=== PATIENT | male | born 1950 | race Caucasian/White ===

== ENCOUNTER → 2018-11-23 | Outpatient (CLI) | payer MEDICARE ==
--- NOTE | 2018-11-23 13:29 | Diagnostic Imaging Report ---
EXAMINATION: CT lung cancer screening. HISTORY: 18-emyr-qpxl history of smoking. COMPARISON: None available. FINDINGS: There is a 3 mm peripheral left lower lobe nodule, likely an intrapulmonary lymph node. A yaniv-fissural nodule along the minor fissure measures approximately 2 mm. No suspicious nodules are seen. No edema or pneumonia. No pleural effusion or pneumothorax. There is a nodule in the left mainstem bronchus measuring approximately 4 mm. This does seem somewhat linear and is likely mucus; however, a polyp or neoplasm could appear similarly. The lungs are emphysematous. The heart size is normal. There has been coronary artery bypass grafting. No axillary, supraclavicular, or mediastinal lymphadenopathy. Limited views of the upper abdomen are normal. There are no suspicious osseous lesions. IMPRESSION: An endobronchial nodule in the left mainstem bronchus is likely mucus but a short-term followup is recommended. Lung-RADS assessment: 4a, a 3 month followup is recommended. Modifier: None. Dictated by: Dictated on workstation # [id number]
== END ==
LOC: RAD 11:04
PROVIDERS: ATTEND Nurse Practitioner Primary Care
DX: Z12.2 Encounter for screening for malignant neoplasm of respiratory organs (principal); R91.1 Solitary pulmonary nodule; Z87.891 Personal history of nicotine dependence

== ENCOUNTER → 2019-03-13 | Outpatient (CLI) | payer MEDICARE, OTHER ==
[2019-03-13 09:49] LABS: CREATININE SERUM 1.73 MG/DL (0.60-1.30)
--- NOTE | 2019-03-13 12:53 | Diagnostic Imaging Report ---
PROCEDURE: CT chest without contrast. TECHNIQUE: Multiple contiguous axial images were obtained through the chest without the use of intravenous contrast. Auto Exposure Controls were utilized during the CT exam to meet ALARA standards for radiation dose reduction. INDICATION: Follow-up nodules. COMPARISON: CT chest on 11/23/2018. FINDINGS: The heart size is within normal limits. No pericardial effusion is present. Post CABG changes are noted. There is calcified aortic and coronary atherosclerotic plaque without aneurysm. There is no mediastinal, hilar, or axillary lymphadenopathy. Stable millimetric pulmonary nodules are seen in the left lower lobe and along the minor fissure. No new suspicious pulmonary nodules are visualized. There are no focal areas of consolidation. The nodularity within the left mainstem bronchus has resolved, consistent with mucosal thickening. New nodularity is seen in the right mainstem bronchus consistent with mucus. No central endobronchial obstructing lesions are identified. There is no pleural effusion or pneumothorax. The osseous structures demonstrate no acute abnormalities. Limited views of the upper abdominal structures demonstrate no acute abnormalities. Both adrenal glands are unremarkable. IMPRESSION: 1. Resolution of the nodularity within the left mainstem bronchus, consistent with mucosal thickening. New nodular thickening is seen in the right mainstem bronchus, also consistent with mucus. No suspicious central endobronchial obstructing lesions. No further follow-up is recommended regarding these findings. 2. Stable millimetric pulmonary nodules in the left lower lobe and along the minor fissure. No new suspicious pulmonary nodules. Recommend 12-month low-dose chest CT for continued follow-up from the prior exam on 11/23/2018. Dictated by: Dictated on workstation # [id number]
== END ==
LOC: RAD FS 09:07
PROVIDERS: ATTEND Nurse Practitioner Primary Care
DX: N18.3 Chronic kidney disease, stage 3 (moderate) (principal); R91.8 Other nonspecific abnormal finding of lung field
CPT/HCPCS: 36415; 71250; 82565; 84520

== ENCOUNTER 2019-07-01 20:00 | Emergency (ER) | payer MEDICARE, OTHER ==
[~2019-07-01] VITALS: Ht 154 cm; Wt 67.7 kg
[2019-07-01 20:40] LABS: BACTERIA,URINE NEGATIVE /HPF; BILIRUBIN,URINE NEGATIVE (NEGATIVE); CLARITY,URINE CLEAR; COLOR,URINE YELLOW; GLUCOSE, URINE (UA) 1+ (NEGATIVE); KETONES,URINE NEGATIVE (NEGATIVE); LEUKOCYTE ESTERASE ,URINE NEGATIVE (NEGATIVE); NITRITE,URINE NEGATIVE (NEGATIVE); PROTEIN,URINE 2+ (NEGATIVE); RBC,URINE 0-2 /HPF
[2019-07-01 20:59] LABS: BASOPHILS % (AUTO) 0 % (0-10); EOSINOPHILS % (AUTO) 2 % (0-10); HEMATOCRIT 37 % (40-54); LYMPHOCYTES % (AUTO) 26 % (12-44); MEAN CORPUSCULAR HEMOGLOBIN 29 PG (25-34); MEAN CORPUSCULAR HGB CONC 33 G/DL (32-36); MEAN CORPUSCULAR VOLUME 88 FL (80-99); MONOCYTES # (AUTO) 1.3 X 10^3 (0.0-1.0); MONOCYTES % (AUTO) 8 % (0-12); NEUTROPHILS # (AUTO) 9.6 X 10^3 (1.8-7.8); NEUTROPHILS % (AUTO) 63 % (42-75); PLATELET COUNT 231 10^3/uL (130-400); RED CELL DISTRIBUTION WIDTH 13.2 % (10.0-14.5); WHITE BLOOD COUNT 15.2 10^3/uL (4.3-11.0)
--- NOTE | 2019-07-01 20:59 | Diagnostic Imaging Report ---
PROCEDURE: CT head without contrast. TECHNIQUE: Multiple contiguous axial images were obtained through the brain without the use of intravenous contrast. Auto Exposure Controls were utilized during the CT exam to meet ALARA standards for radiation dose reduction. INDICATION: Frequent falls and headache. COMPARISON: No prior examination is available for comparison. FINDINGS: Ventricles appear slightly dilated out of proportion to the sulci. There is no midline shift. There is a focal lacunar infarct in the right basal ganglia which appears to be subacute. There is no mass, hemorrhage or extra-axial fluid collection. Calvarium is intact. Sinuses and mastoid air cells are clear. IMPRESSION: 1. Focal area of decreased attenuation in the right basal ganglia suspect for subacute CVA. Recommend clinical correlation and, if warranted, follow up with MRI. 2. Ventricles appear dilated out of proportion to sulci. The possibility of normal pressure hydrocephalus cannot be excluded. Recommend clinical correlation and, if warranted, again this could be further evaluated with MRI. 3. No other acute intracranial abnormality. Dictated by: Dictated on workstation # [id number]
[2019-07-01 21:00] LABS: EOSINOPHILS # (AUTO) 0.3 10^3/uL (0.0-0.3)
[2019-07-01 21:09] LABS: PROTHROMBIN TIME PATIENT 13.4 SEC (12.2-14.7)
[2019-07-01 21:17] LABS: POTASSIUM 4.7 MMOL/L (3.6-5.0)
[2019-07-01 21:18] LABS: ALBUMIN 3.9 GM/DL (3.2-4.5); BILIRUBIN,TOTAL 0.2 MG/DL (0.1-1.0); CALCIUM 8.9 MG/DL (8.5-10.1); CREATININE SERUM 2.08 MG/DL (0.60-1.30); TOTAL PROTEIN 6.8 GM/DL (6.4-8.2)
[2019-07-01 21:19] LABS: ANISOCYTOSIS SLIGHT; BAND NEUTROPHILS 1 %; EOSINOPHILS % (MANUAL) 3 %; LYMPHOCYTES % (MANUAL) 18 %; MICROCYTOSIS MARKED; MONOCYTES % (MANUAL) 5 %; NEUTROPHILS % (MANUAL) 60 %; POIKILOCYTOSIS MODERATE; REACTIVE LYMPHOCYTES 13 %
[2019-07-01 21:20] LABS: HELMET/BITE CELLS SLIGHT
--- NOTE | 2019-07-01 22:06 | ED General ---
General Chief Complaint: Altered Mental Status Stated Complaint: CONFUSION Nursing Triage Note: states 2 weeks of intermittent confusion, has had previous fem pop with stent which is now occluded, supposed to see cardiology on wednesday for ct of groin to determine surgical course for pt. pt with 4 falls today, states he hit head 1 of the times on the floor. pt has had vertigo for the past 2 months. Nursing Sepsis Screen: No Definite Risk Source of Information: Patient, Spouse History of Present Illness Date Seen by Provider: Jul 01, 2019 Time Seen by Provider: 22:06 Initial Comments 69-year-old male presenting with intermittent confusion over the last 2 weeks. Today he has had increased vertigo and 4-5 episodes of falls. He states that the vertigo and dizziness happens just out of the blue when it is worse if he leans over but will happen whether he is moving his head or not. He denies any pain. He has no nausea or vomiting. He has been having difficulty swallowing and had choked a few times today. He is having occlusion to his bypass in the femoropop liteal stent and is supposed to have a scan and evaluation and treatment for that this upcoming week. With the increased confusion, dizziness, choking episodes and falls today the brought him in to be evaluated for possible stroke Allergies and Home Medications Allergies Coded Allergies: iodine (Verified Allergy, Unknown, 07/01/19) Patient Home Medication List Home Medication List Reviewed: Yes Review of Systems Review of Systems Constitutional: No chills, No diaphoresis; dizziness; No fever EENTM: no symptoms reported Respiratory: no symptoms reported Cardiovascular: no symptoms reported Gastrointestinal: no symptoms reported Genitourinary: no symptoms reported Musculoskeletal: muscle weakness (bilateral legs) Skin: no symptoms reported Psychiatric/Neurological: Denies Headache; Numbness (increased numbness to BLE beyond his diabetic neuropathy) Hematologic/Lymphatic: No Symptoms Reported Immunological/Allergic: no symptoms reported Past Hvzexpv-Qtxnyq-Idvtat Hx Past Med/Social Hx: Reviewed Nursing Past Med/Soc Hx Patient Social History Alcohol Use: Denies Use Recreational Drug Use: No Smoking Status: Former Smoker 2nd Hand Smoke Exposure: No Recent Foreign Travel: No Contact w/Someone Who Travel: No Recent Infectious Disease Expo: No Recent Hopitalizations: No Physical Abuse: No Sexual Abuse: No Mistreated: No Fear: No Seasonal Allergies Seasonal Allergies: No Past Medical History Surgeries: Yes Cardiac, CABG, Coronary Stent Respiratory: No Cardiac: Yes Coronary Artery Disease, Heart Attack, High Cholesterol, Hypertension Neurological: No Genitourinary: No Renal Failure Gastrointestinal: No Musculoskeletal: No Endocrine: Yes Diabetes, Insulin dep HEENT: No Cancer: No Psychosocial: No Integumentary: No Blood Disorders: No Physical Exam Vital Signs Vital Signs - First Documented 07/01/19 20:30 Temp 36.1 Pulse 99 Resp 20 B/P (MAP) 166/53 (90) Pulse Ox 96 O2 Delivery Room Air Capillary Refill : Less Than 3 Seconds Height, Weight, BMI Height: '" Weight: lbs. oz. kg; 28.00 BMI Method: General Appearance: No Apparent Distress, WD/WN HEENT: PERRL/EOMI, Pharynx Normal, Moist Mucous Membranes, Other (cerumen blocking left TM, right TM clear) Neck: Full Range of Motion, Normal Inspection, Non Tender, Supple, Carotid Bruit Respiratory: Chest Non Tender, No Accessory Muscle Use, No Respiratory Distress, Decreased Breath Sounds, Rhonci (bases) Cardiovascular: Regular Rate, Rhythm; No Normal Peripheral Pulses (decreased pulses to BLE, 2/4 pulses to radial pulse bilateral) Gastrointestinal: Normal Bowel Sounds, No Pulsatile Mass, Non Tender, Soft Extremity: Normal Range of Motion, No Calf Tenderness, No Pedal Edema, Slow Capillary Refill, Other (decreased sensation to BLE) Neurologic/Psychiatric: Alert; No Oriented x3 (oriented to self, place); Normal Mood/Affect, interventional physician II-XII Norm as Tested Skin: Normal Color, Warm/Dry Progress/Results/Core Measures Suspected Sepsis Recent Fever Within 48 Hours: No Infection Criteria Present: None New/Unexplained Altered Menta: No Sepsis Screen: No Definite Risk SIRS Temperature: Pulse: 99 Respiratory Rate: 20 Laboratory Tests 07/01/19 20:55: White Blood Count 15.2H Blood Pressure 166 /53 Mean: 90 Laboratory Tests 07/01/19 20:55: Creatinine 2.08H, INR Comment 1.0, Platelet Count 231, Total Bilirubin 0.2 Results/Orders Lab Results Laboratory Tests Test 07/01/19 20:28 07/01/19 20:55 Range/Units Urine Color YELLOW Urine Clarity CLEAR Urine pH 6.0 5-9 Urine Specific [place] 1.010 L 1.016-1.022 Urine Protein 2+ H NEGATIVE Urine Glucose (UA) 1+ H NEGATIVE Urine Ketones NEGATIVE NEGATIVE Urine Nitrite NEGATIVE NEGATIVE Urine Bilirubin NEGATIVE NEGATIVE Urine Urobilinogen 0.2 < = 1.0 MG/DL Urine Leukocyte Esterase NEGATIVE NEGATIVE Urine RBC (Auto) TRACE-I NEGATIVE Urine RBC 0-2 /HPF Urine WBC NONE /HPF Urine Crystals NONE /LPF Urine Bacteria NEGATIVE /HPF Urine Casts NONE /LPF Urine Mucus NEGATIVE /LPF Urine Culture Indicated NO White Blood Count 15.2 H 4.3-11.0 10^3/uL Red Blood Count 4.16 L 4.35-5.85 10^6/uL Hemoglobin 12.0 L 13.3-17.7 G/DL Hematocrit 37 L 40-54 % Mean Corpuscular Volume 88 80-99 FL Mean Corpuscular Hemoglobin 29 25-34 PG Mean Corpuscular Hemoglobin Concent 33 32-36 G/DL Red Cell Distribution Width 13.2 10.0-14.5 % Platelet Count 231 130-400 10^3/uL Mean Platelet Volume 10.0 7.4-10.4 FL Neutrophils (%) (Auto) 63 42-75 % Lymphocytes (%) (Auto) 26 12-44 % Monocytes (%) (Auto) 8 0-12 % Eosinophils (%) (Auto) 2 0-10 % Basophils (%) (Auto) 0 0-10 % Neutrophils # (Auto) 9.6 H 1.8-7.8 X 10^3 Lymphocytes # (Auto) 4.0 1.0-4.0 X 10^3 Monocytes # (Auto) 1.3 H 0.0-1.0 X 10^3 Eosinophils # (Auto) 0.3 0.0-0.3 10^3/uL Basophils # (Auto) 0.0 0.0-0.1 10^3/uL Neutrophils % (Manual) 60 % Lymphocytes % (Manual) 18 % Monocytes % (Manual) 5 % Eosinophils % (Manual) 3 % Band Neutrophils 1 % Reactive Lymphocytes 13 % Poikilocytosis MODERATE Anisocytosis SLIGHT Microcytosis MARKED Helmet Cells SLIGHT Prothrombin Time 13.4 12.2-14.7 SEC INR Comment 1.0 0.8-1.4 Activated Partial Thromboplast Time 25 24-35 SEC Sodium Level 140 135-145 MMOL/L Potassium Level 4.7 3.6-5.0 MMOL/L Chloride Level 100 98-107 MMOL/L Carbon Dioxide Level 27 21-32 MMOL/L Anion Gap 13 5-14 MMOL/L Blood Urea Nitrogen 30 H 7-18 MG/DL Creatinine 2.08 H 0.60-1.30 MG/DL Estimat Glomerular Filtration Rate 32 BUN/Creatinine Ratio 14 Glucose Level 80 70-105 MG/DL Calcium Level 8.9 8.5-10.1 MG/DL Corrected Calcium 9.0 8.5-10.1 MG/DL Total Bilirubin 0.2 0.1-1.0 MG/DL Aspartate Amino Transf (AST/SGOT) 15 5-34 U/L Alanine Aminotransferase (ALT/SGPT) 17 0-55 U/L Alkaline Phosphatase 155 H 40-136 U/L Total Protein 6.8 6.4-8.2 GM/DL Albumin 3.9 3.2-4.5 GM/DL My Orders Orders - JOE POWERS MD Ua Culture If Indicated (07/01/19 20:28) Ct Head Wo (07/01/19 20:34) Cbc With Automated Diff (07/01/19 20:39) Comprehensive Metabolic Panel (07/01/19 20:39) Protime With Inr (07/01/19 20:39) Partial Thromboplastin Time (07/01/19 20:39) Manual Differential (07/01/19 20:55) Vital Signs/I&O 07/01/19 20:30 Temp 36.1 Pulse 99 Resp 20 B/P (MAP) 166/53 (90) Pulse Ox 96 O2 Delivery Room Air Capillary Refill : Less Than 3 Seconds Blood Pressure Mean: 90 Progress Note #1: Progress Note Labs and CT scan of his head were performed to evaluate for possible stroke. Progress Note #2: Time: 22:01 Progress Note Reviewed results with patient and family. With him having some acute findings for stroke on his CT head this could be causing his increased symptoms today. Discussed transfer to a larger facility that would have neurology as well as MRI to further evaluate his brain as recommended by the radiology report. Patient and family requested [facility] since they had his specialists there and were scheduled to go there this next week. Progress Note #3: Time: 22:36 Progress Note Reviewed findings and results with Dr. Manoj Montalvo. He was the hospitalist construction tech for [place]. Will transfer patient for further evaluation and treatment Diagnostic Imaging Diagonstic Imaging: CT Plain Films/CT/US/NM/MRI: head Comments [facility], [place] NAME: JCARLOS CADE [facility] REC#: [id number] PT STATUS: REG ER : 1950 PHYSICIAN: JOE POWERS MD ADMIT DATE: 07/01/19/ER FS Signed Date of Exam:07/01/19 CT HEAD WO PROCEDURE: CT head without contrast. TECHNIQUE: Multiple contiguous axial images were obtained through the brain without the use of intravenous contrast. Auto Exposure Controls were utilized during the CT exam to meet ALARA standards for radiation dose reduction. INDICATION: Frequent falls and headache. COMPARISON: No prior examination is available for comparison. FINDINGS: Ventricles appear slightly dilated out of proportion to the sulci. There is no midline shift. There is a focal lacunar infarct in the right basal ganglia which appears to be subacute. There is no mass, hemorrhage or extra-axial fluid collection. Calvarium is intact. Sinuses and mastoid air cells are clear. IMPRESSION: 1. Focal area of decreased attenuation in the right basal ganglia suspect for subacute CVA. Recommend clinical correlation and, if warranted, follow up with MRI. 2. Ventricles appear dilated out of proportion to sulci. The possibility of normal pressure hydrocephalus cannot be excluded. Recommend clinical correlation and, if warranted, again this could be further evaluated with MRI. 3. No other acute intracranial abnormality. Dictated by: Dictated on workstation # [id number] Dict: 07/01/192052 Trans: 07/01/192104 [facility] [id number] Interpreted by: SHALOM DE LA TORRE MD Electronically signed by: SHALOM DE LA TORRE MD 07/01/192104 Departure Impression Primary Impression: Cerebrovascular accident (CVA) of right basal ganglia Additional Impression: Vertigo following cerebrovascular accident Disposition: SHT-TRM HOSP Condition: Stable Transfer Transfer Reason: Exceeds level of care (Neurology and MRI) Transfer Progress Notes D/w Dr. Manoj Montalvo, Hospitalist at [place] about pt for transfer for his stroke and increased vertigo symptoms. Transfer Facility: [facility] Method of Transfer: EMS Departure-Patient Inst. Referrals: LEO FLOR DO (PCP) Primary Care Physician NILESH DE LA TORRE APRN (Family) Primary Care Physician NIH Stroke Scale NIH Stroke Scale NIH : Select: Initial Level of Consciousness: 0=Alert Level of Consciousness-Questio: 1=Answers one question (missed the month) LOC Commands: 0=Performs both tasks Gaze: 0=Normal Visual Bright: 0=No visual loss Facial Movement (Facial Paresi: 0=Normal symmetrical mnt Motor Function-Arms Right: 0=No drift Motor Function-Arms Left: 0=No drift Motor Function-Legs Right: 0=No drift Motor Function-Legs Left: 0=No drift Limb Ataxia: 1=Present in one limb Sensory: 1=Mild to Moderate loss Best Language: 0=No aphasia Dysarthria: 0=Normal Extinction & Inattention: 0=No abnormality NIH Stroke Scale Score: 3 JOE POWERS MD Jul 01, 2019 22:06
[2019-07-01] MEDS ORDERED: CITA20TA9 (22:55)
[2019-07-01] MEDS ORDERED: LISI10TA2 (22:55)
[2019-07-01] MEDS ORDERED: CLOP75TA28 (22:55)
[2019-07-01] MEDS ORDERED: AMIT50TA3 (22:55)
[2019-07-01] MEDS ORDERED: ATOR80TA76 (22:55)
--- NOTE | 2019-07-01 23:10 | NUR ---
ems here for transport
[2019-07-01 23:20] VITALS: BP 135/95
== END 2019-07-01 23:15 | disposition short-term general hospital (02) ==
LOC: EDUNIT# 20:00 → ER FS 20:02
DX: I63.9 Cerebral infarction, unspecified (principal); Z88.8 Allergy status to other drugs, medicaments and biological substances; Z87.891 Personal history of nicotine dependence; Z95.5 Presence of coronary angioplasty implant and graft
CPT/HCPCS: 36415; 70450; 80053; 81000; 85007; 85027; 85610; 85730

== ENCOUNTER 2019-07-15 10:03 | Day surgery (SDC) | payer MEDICARE, OTHER ==
[~2019-07-15] VITALS: Ht 168 cm; Wt 65.9 kg
[2019-07-15] VITALS (9 sets, daily range): BP systolic 93–145; BP diastolic 46–73
[~2019-07-15 10:03] MED LIST: AMIT50TA3; ATOR80TA76; CITA20TA9; CLOP75TA28; LISI10TA2
[2019-07-15] MEDS ORDERED: ONDANSETRON 4 MG/2 ML (SDV) Z0FRAN IVP ONE (10:30)
[2019-07-15] MEDS ORDERED: GLUCAGON EMERGENCY 1 MG/KIT IV ONE ×2 (10:30)
--- NOTE | 2019-07-15 10:30 | ED General ---
General Chief Complaint: Foreign Body Stated Complaint: FB IN THROAT Source of Information: Patient History of Present Illness Date Seen by Provider: Jul 15, 2019 Time Seen by Provider: 10:27 Initial Comments Patient is a 69-year-old male who comes to the emergency department complaining of foreign body in esophagus. Patient states he was eating burnt and and baked beans for dinner last night when he perceived that the piece of meat became lodged. He has been able to tolerate food since then and states he ate a banana for breakfast this morning but he continues to have the feeling that there is something caught in his throat. He has had no nausea or vomiting. He is able to take liquids as well. Denies acute distress. Allergies and Home Medications Allergies Coded Allergies: iodine (Verified Allergy, Unknown, 07/01/19) Patient Home Medication List Home Medication List Reviewed: Yes Review of Systems Review of Systems Constitutional: no symptoms reported Respiratory: no symptoms reported Cardiovascular: no symptoms reported Gastrointestinal: see HPI Musculoskeletal: no symptoms reported Skin: no symptoms reported All Other Systems Reviewed Negative Unless Noted: Yes Past Zjhqgfx-Qmyzbg-Jowyrk Hx Patient Social History Alcohol Use: Denies Use Recreational Drug Use: No Smoking Status: Never a Smoker 2nd Hand Smoke Exposure: No Recent Foreign Travel: No Contact w/Someone Who Travel: No Recent Hopitalizations: No Seasonal Allergies Seasonal Allergies: No Past Medical History Surgeries: Yes Cardiac, CABG, Coronary Stent Respiratory: No Cardiac: Yes Coronary Artery Disease, Heart Attack, High Cholesterol, Hypertension Neurological: No Genitourinary: No Renal Failure Gastrointestinal: No Musculoskeletal: No Endocrine: Yes Diabetes, Insulin dep HEENT: No Cancer: No Psychosocial: No Integumentary: No Blood Disorders: No Physical Exam Vital Signs Vital Signs - First Documented 07/15/19 10:23 Temp 36.5 Pulse 88 Resp 18 B/P (MAP) 186/97 (126) Pulse Ox 99 Capillary Refill : Height, Weight, BMI Height: '" Weight: lbs. oz. kg; 28.00 BMI Method: General Appearance: No Apparent Distress, WD/WN HEENT: PERRL/EOMI, Pharynx Normal Neck: Supple Respiratory: Chest Non Tender, Lungs Clear, Normal Breath Sounds Cardiovascular: Regular Rate, Rhythm, No Edema Gastrointestinal: Non Tender, Soft Extremity: Normal Capillary Refill Neurologic/Psychiatric: Alert, Oriented x3 Skin: Normal Color, Warm/Dry Progress/Results/Core Measures Suspected Sepsis SIRS Temperature: Pulse: Respiratory Rate: Laboratory Tests 07/15/19 10:35: White Blood Count 18.1H Blood Pressure / Mean: Laboratory Tests 07/15/19 00:00: 07/15/19 10:35: Platelet Count 341 Results/Orders Lab Results Laboratory Tests Test 07/15/19 00:00 07/15/19 10:35 Range/Units White Blood Count 18.1 H 4.3-11.0 10^3/uL Red Blood Count 4.38 4.35-5.85 10^6/uL Hemoglobin 12.7 L 13.3-17.7 G/DL Hematocrit 39 L 40-54 % Mean Corpuscular Volume 88 80-99 FL Mean Corpuscular Hemoglobin 29 25-34 PG Mean Corpuscular Hemoglobin Concent 33 32-36 G/DL Red Cell Distribution Width 12.9 10.0-14.5 % Platelet Count 341 130-400 10^3/uL Mean Platelet Volume 9.9 7.4-10.4 FL Neutrophils (%) (Auto) 70 42-75 % Lymphocytes (%) (Auto) 22 12-44 % Monocytes (%) (Auto) 6 0-12 % Eosinophils (%) (Auto) 1 0-10 % Basophils (%) (Auto) 0 0-10 % Neutrophils # (Auto) 12.7 H 1.8-7.8 X 10^3 Lymphocytes # (Auto) 4.0 1.0-4.0 X 10^3 Monocytes # (Auto) 1.1 H 0.0-1.0 X 10^3 Eosinophils # (Auto) 0.2 0.0-0.3 10^3/uL Basophils # (Auto) 0.0 0.0-0.1 10^3/uL Neutrophils % (Manual) 72 % Lymphocytes % (Manual) 24 % Monocytes % (Manual) 2 % Eosinophils % (Manual) 2 % Basophils % (Manual) 0 % Band Neutrophils 0 % Blood Morphology Comment NORMAL My Orders Orders - SALOMÓN OLIVAREZ DO Ed Iv/Invasive Line Start (07/15/19 10:17) Soft Tissue Neck (07/15/19 10:17) Chest 1 View Ap/Pa Only (07/15/19 10:17) Ondansetron Injection (Zofran Injectio (07/15/19 10:30) Glucagon Emergency Kit (Glucagon Emergen (07/15/19 10:30) Cbc With Automated Diff (07/15/19 10:30) Basic Metabolic Panel (07/15/19 10:30) Manual Differential (07/15/19 10:35) Ct Neck/Chest Wo (07/15/19 11:34) Barium Suspension 2.1% (Vanilla Silq) (07/15/19 11:45) Dexamethasone Injection (Decadron Inject (07/15/19 12:15) Medications Given in ED Current Medications Medications Dose Ordered Sig/Nacho Route Start Time Stop Time Status Last Admin Dose Admin Barium Sulfate 125 ml ONCE ONCE PO 07/15/19 11:45 07/15/19 11:46 DC 07/15/19 12:00 65 ML Dexamethasone Sodium Phosphate 8 mg ONCE ONCE IV 07/15/19 12:15 07/15/19 12:16 DC 07/15/19 12:33 8 MG Glucagon 2 mg ONCE ONCE IV 07/15/19 10:30 07/15/19 10:31 DC 07/15/19 10:50 2 MG Ondansetron HCl 4 mg ONCE ONCE IVP 07/15/19 10:30 07/15/19 10:31 DC 07/15/19 10:50 4 MG Vital Signs/I&O 07/15/19 10:23 Temp 36.5 Pulse 88 Resp 18 B/P (MAP) 186/97 (126) Pulse Ox 99 Capillary Refill : Progress Note : Time: 10:29 Progress Note Patient is seen and examined. No acute distress. Will place IV and give glucagon along with some Zofran. Will check plain film imaging to begin with. 12:45: ED Course: Patient seen for possible food bolus in the esophagus. Initial plain film imaging did not reveal acute findings. This was followed by CT scan which was questionable for possible bolus at the GE junction. In the ER, the patient received 2 mg of IV glucagon. He was given Decadron 8 mg IV. He was given Zofran for nausea control. Following administration of glucagon, patient received a large carbonated soda and was able to drink and tolerate but this did not alleviate his symptoms. Decision is made to discuss with surgery. I spoke to Dr. Naidu at 12:40 who did agree to evaluate the patient in the endoscopy lab in [place] at [facility]. Plan is for discharge from this emergency department and transfer to [place]. The patient is stable for private vehicle transfer. He has been observed in the ER for a couple hours with no difficulty. No respiratory distress. Is currently able to tolerate food and fluid. Patient is agreeable to this transfer plan of care. IV is left in place and patient is transferred via private vehicle. ECG Initial ECG Impression Date: Jul 15, 2019 Departure Impression Primary Impression: Foreign body in esophagus Disposition: XFER SHT-TRM HOSP Condition: Improved Transfer Transfer Reason: Exceeds level of care Time Spoke to Accepting Phy: 12:40 Transfer Time: 13:00 Transfer Facility: [facility] (for endoscopy only. Not admission to hospital) Method of Transfer: Private Vehicle Departure-Patient Inst. Referrals: [facility] (PCP/Family) Primary Care Physician Patient Instructions: Foreign Body, Swallowed, Child (DC) SALOMÓN OLIVAREZ DO Jul 15, 2019 10:30
--- NOTE | 2019-07-15 10:37 | Diagnostic Imaging Report ---
INDICATION: Food stuck in throat COMPARISON: Imaging from same date as well as from 03/13/2019. TECHNIQUE: Single frontal radiograph of the chest dated 07/15/2019. FINDINGS: Post surgical changes of a CABG. The cardiac silhouette is within normal limits in size. No significant pulmonary vascular congestion. The lungs are hyperinflated, though clear. No pleural effusion. No pneumothorax. Vascular stent is seen overlying the left neck. No acute osseous abnormality. IMPRESSION: No acute cardiopulmonary abnormality. Pulmonary hyperinflation. Additional postsurgical changes as above. Dictated by: Dictated on workstation # [id number]
--- NOTE | 2019-07-15 10:37 | Diagnostic Imaging Report ---
INDICATION: Food stuck in throat. COMPARISON: None available TECHNIQUE: Frontal and lateral radiographs of the soft tissues of the neck dated 07/15/2019. FINDINGS: Median sternotomy. Vascular stent graft seen overlying the left neck. The epiglottis and aryepiglottic folds are unremarkable. The airway appears patent. No suspicious radiopaque foreign body. Scattered degenerative changes within the osseous structures without acute osseous abnormality. The patient is edentulous. IMPRESSION: Postsurgical changes without acute abnormality. No suspicious radiopaque foreign body. Dictated by: Dictated on workstation # [id number]
[2019-07-15 10:45] LABS: BASOPHILS % (AUTO) 0 % (0-10); EOSINOPHILS # (AUTO) 0.2 10^3/uL (0.0-0.3); EOSINOPHILS % (AUTO) 1 % (0-10); HEMATOCRIT 39 % (40-54); HEMOGLOBIN 12.7 G/DL (13.3-17.7); LYMPHOCYTES % (AUTO) 22 % (12-44); MEAN CORPUSCULAR HEMOGLOBIN 29 PG (25-34); MEAN CORPUSCULAR HGB CONC 33 G/DL (32-36); MEAN CORPUSCULAR VOLUME 88 FL (80-99); MEAN PLATELET VOLUME 9.9 FL (7.4-10.4); MONOCYTES # (AUTO) 1.1 X 10^3 (0.0-1.0); MONOCYTES % (AUTO) 6 % (0-12); NEUTROPHILS # (AUTO) 12.7 X 10^3 (1.8-7.8); NEUTROPHILS % (AUTO) 70 % (42-75); PLATELET COUNT 341 10^3/uL (130-400); RED CELL DISTRIBUTION WIDTH 12.9 % (10.0-14.5); WHITE BLOOD COUNT 18.1 10^3/uL (4.3-11.0)
[2019-07-15 10:59] LABS: BAND NEUTROPHILS 0 %; BASOPHILS % (MANUAL) 0 %; EOSINOPHILS % (MANUAL) 2 %; LYMPHOCYTES % (MANUAL) 24 %; MONOCYTES % (MANUAL) 2 %; NEUTROPHILS % (MANUAL) 72 %; RBC MORPH NORMAL
[2019-07-15] MEDS ORDERED: BARIUM SUSPENSION 2.1% (VANILLA SILQ) 450 ML PO ONE (11:45)
[2019-07-15] MEDS ORDERED: DEXAMETHASONE 4 MG/ML SDV (DECADRON) IV ONE (12:15)
--- NOTE | 2019-07-15 12:21 | Diagnostic Imaging Report ---
INDICATION: Sensation of food stuck in throat after eating dinner the previous evening. TECHNIQUE: Multiple contiguous axial images were obtained through the neck and chest without the use of intravenous contrast. All CT scans use one or more of the following dose optimizing techniques: automated exposure control, MA and/or KvP adjustment based on patient size and exam type or iterative reconstruction. FINDINGS: The visualized globes and intraorbital structures are unremarkable. The visualized intracranial structures are unremarkable. Sinuses and mastoid air cells are clear. The parotid, submandibular and thyroid glands are grossly normal in appearance. The nasopharyngeal, oropharyngeal and hypopharyngeal tissues are symmetrical without mass effect. Prevertebral soft tissues are within normal limits. Epiglottis is unremarkable. There are degenerative changes in the cervical spine. There are some focal areas of nodularity along the left wall of the upper trachea as well as in the right mainstem bronchus. All this may reflect mucus. The possibility of underlying polyp or mucosal lesion cannot be excluded. The esophagus is completely air-filled to the GE junction. There is some soft tissue fullness just above the diaphragm suspect for retained food material. There are no discrete pulmonary nodules, masses or infiltrates. There is no pleural or pericardial fluid. There is no pneumothorax. There are coronary artery calcifications. There is no pathologically enlarged adenopathy in the chest. The visualized intra-abdominal structures are grossly unremarkable IMPRESSION: Unremarkable noncontrast CT neck. Completely air filled esophagus with some soft tissue fullness just above the GE junction suspect for retained food material. Recommend further evaluation with endoscopy. Several focal nodular areas in the right mainstem bronchus and trachea. Again this may simply reflect some mucous, however, tracheal or bronchial lesion cannot be excluded. Recommend further evaluation with bronchoscopy. Coronary artery calcification. No other acute abnormality in the chest. Findings were conveyed directly to the Emergency Room physician in [place] at 12:10 p.m. Dictated by: Dictated on workstation # [id number]
[2019-07-15] MEDS ORDERED: MIDAZOLAM 2 MG/2 ML (VERSED) VIAL ONE (13:41)
[2019-07-15] MEDS ORDERED: proPOfol 200 MG/20 ML (DIPRIVAN) VIAL IV ONE (13:41)
[2019-07-15] MEDS ORDERED: fentaNYL INJECTION 100 MCG/2 ML AMP ONE (13:41)
[2019-07-15] MEDS ORDERED: SUCCINYLCHOLINE INJ 100 MG/5 ML SYR ONE (13:41)
[2019-07-15] MEDS ORDERED: ONDANSETRON 4 MG/2 ML (SDV) Z0FRAN ONE (13:42)
[2019-07-15] MEDS ORDERED: LIDOCAINE PF 2% 5 ML (XYLOCAINE) VIAL ONE (13:42)
[2019-07-15] MEDS ORDERED: LACTATED RINGERS 1,000 ML IV ONE (13:42)
[2019-07-15] MEDS ORDERED: HURRICAINE EXT TUBE (BENZOCAINE) ONE (14:08)
[2019-07-15] MEDS ORDERED: ROCURONIUM 10 MG/ML 5 ML SYRINGE IV ONE (14:14)
--- NOTE | 2019-07-15 14:24 | Consultation - Surgery ---
History of Present Illness History of Present Illness Patient Consulted On(zuly/time) 07/15/19 14:19 Time Seen by Provider: 14:09 History of Present Illness Surgery asked to see pt regarding dysphagia and possible food bolus. HPI per ED: Patient is a 69-year-old male who comes to the emergency department complaining of foreign body in esophagus. Patient states he was eating burnt and and baked beans for dinner last night when he perceived that the piece of meat became lodged. He has been able to tolerate food since then and states he ate a banana for breakfast this morning but he continues to have the feeling that there is something caught in his throat. He has had no nausea or vomiting. He is able to take liquids as well. Denies acute distress. When I spoke to pt he states he has never had this problem before and has never had an EGD. Pt does report that 2-3 x week he has symptoms of GERD; burning acidy feeling. Pt denies nausea or vomiting, but did try to make himself vomit this morning "to try and get it out". He was able to drink some in the ER, but hasn't been able to get rid of the feeling. Allergies and Home Medications Allergies Coded Allergies: iodine (Verified Allergy, Unknown, 07/01/19) Patient Home Medication List Home Medication List Reviewed: Yes Past Ztiiysq-Ujqxjm-Lfvmwk Hx Patient Social History Alcohol Use: Denies Use Recreational Drug Use: No Smoking Status: Never a Smoker 2nd Hand Smoke Exposure: No Recent Foreign Travel: No Contact w/Someone Who Travel: No Recent Infectious Disease Expo: No Recent Hopitalizations: No Seasonal Allergies Seasonal Allergies: No Surgeries History of Surgeries: Yes Surgeries: Cardiac, CABG, Coronary Stent Respiratory History of Respiratory Disorde: No Cardiovascular History of Cardiac Disorders: Yes Cardiac Disorders: Coronary Artery Disease, Heart Attack, High Cholesterol, Hypertension Neurological History of Neurological Disord: No Genitourinary History of Genitourinary Disor: No Genitourinary Disorders: Renal Failure Gastrointestinal History of Gastrointestinal Di: No Musculoskeletal History of Musculoskeletal Dis: No Endocrine History of Endocrine Disorders: Yes Endocrine Disorders: Diabetes, Insulin dep HEENT History of HEENT Disorders: No Cancer History of Cancer: No Psychosocial History of Psychiatric Problem: No Integumentary History of Skin or Integumenta: No Blood Transfusions History of Blood Disorders: No Family Medical History Significant Family History: Cancer (pancreatic), CAD Over 55 Years Old, Diabetes, Hypertension Review of Systems-General Constitutional: No chills, No diaphoresis; weakness EENTM: throat pain; No blurred vision, No double vision, No mouth pain, No mouth swelling, No epistaxis Respiratory: dyspnea on exertion; No hemoptysis, No phlegm Cardiovascular: No chest pain; Hx of Intervention, vascular heart diseas Gastrointestinal: abdominal pain; No jaundice, No nausea, No vomiting Genitourinary: No dysuria, No frequency, No hematuria Musculoskeletal: back pain, joint pain, joint swelling, muscle pain, muscle stiffness Skin: No change in color, No change in hair/nails, No rash Psychiatric/Neurological: Denies Anxiety, Denies Depressed; Weakness (mild left sided weakness), Other (TIA last month) Other pt states he bleeds and bruises easily because he is on a blood thinner. 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 Physical Exam-General Problems Physical Exam Vital Signs Vital Signs - First Documented 07/15/19 10:23 Temp 36.5 Pulse 88 Resp 18 B/P (MAP) 186/97 (126) Pulse Ox 99 Capillary Refill : Less Than 3 Seconds General Appearance: WD/WN, mild distress Eyes: Bilateral Eye PERRL, Bilateral Eye EOMI HEENT: pharynx normal, other (moist mucous membranes) Neck: supple, normal inspection Respiratory: chest non-tender, lungs clear, normal breath sounds, no respiratory distress, no accessory muscle use Cardiovascular: regular rate, rhythm, no murmur Gastrointestinal: normal bowel sounds, non tender, soft, no organomegaly, other (large midline ventral incision with hernia) Back: no CVA tenderness, no vertebral tenderness Extremities: no pedal edema, no calf tenderness, normal capillary refill Neurologic/Psychiatric: doctor of radiology II-XII nml as tested, alert, normal mood/affect, o riented x 3 Skin: normal color, warm/dry Lymphatic: no adenopathy (neck, axilla or groin) Data Review Labs Laboratory Tests 07/15/19 00:00: 07/15/19 10:35: White Blood Count 18.1H, Red Blood Count 4.38, Hemoglobin 12.7L, Hematocrit 39L, Mean Corpuscular Volume 88, Mean Corpuscular Hemoglobin 29, Mean Corpuscular Hemoglobin Concent 33, Red Cell Distribution Width 12.9, Platelet Count 341, Mean Platelet Volume 9.9, Neutrophils (%) (Auto) 70, Lymphocytes (%) (Auto) 22, Monocytes (%) (Auto) 6, Eosinophils (%) (Auto) 1, Basophils (%) (Auto) 0, Neutrophils # (Auto) 12.7H, Lymphocytes # (Auto) 4.0, Monocytes # (Auto) 1.1H, Eosinophils # (Auto) 0.2, Basophils # (Auto) 0.0, Neutrophils % (Manual) 72, Lymphocytes % (Manual) 24, Monocytes % (Manual) 2, Eosinophils % (Manual) 2, Basophils % (Manual) 0, Band Neutrophils 0, Blood Morphology Comment NORMAL Radiology Date of Exam:07/15/19 CT NECK/CHEST WO INDICATION: Sensation of food stuck in throat after eating dinner the previous evening. TECHNIQUE: Multiple contiguous axial images were obtained through the neck and chest without the use of intravenous contrast. All CT scans use one or more of the following dose optimizing techniques: automated exposure control, MA and/or KvP adjustment based on patient size and exam type or iterative reconstruction. FINDINGS: The visualized globes and intraorbital structures are unremarkable. The visualized intracranial structures are unremarkable. Sinuses and mastoid air cells are clear. The parotid, submandibular and thyroid glands are grossly normal in appearance. The nasopharyngeal, oropharyngeal and hypopharyngeal tissues are symmetrical without mass effect. Prevertebral soft tissues are within normal limits. Epiglottis is unremarkable. There are degenerative changes in the cervical spine. There are some focal areas of nodularity along the left wall of the upper trachea as well as in the right mainstem bronchus. All this may reflect mucus. The possibility of underlying polyp or mucosal lesion cannot be excluded. The esophagus is completely air-filled to the GE junction. There is some soft tissue fullness just above the diaphragm suspect for retained food material. There are no discrete pulmonary nodules, masses or infiltrates. There is no pleural or pericardial fluid. There is no pneumothorax. There are coronary artery calcifications. There is no pathologically enlarged adenopathy in the chest. The visualized intra-abdominal structures are grossly unremarkable IMPRESSION: Unremarkable noncontrast CT neck. Completely air filled esophagus with some soft tissue fullness just above the GE junction suspect for retained food material. Recommend further evaluation with endoscopy. Several focal nodular areas in the right mainstem bronchus and trachea. Again this may simply reflect some mucous, however, tracheal or bronchial lesion cannot be excluded. Recommend further evaluation with bronchoscopy. Coronary artery calcification. No other acute abnormality in the chest. Findings were conveyed directly to the Emergency Room physician in [place] at 12:10 p.m. Dictated by: Dictated on workstation # [id number] Dict: 07/15/19 1205 Trans: 07/15/[address] [facility] [id number] Interpreted by: SHALOM DE LA OTRRE MD Electronically signed by: SHALOM DE LA TORRE MD 07/15/19 1256 Assessment/Plan Assessment/Plan Assessment/Plan Dysphagia Suspected Food Bolus CAD, DM, HTN, PAD Pt has a suspected food bolus; possibly confirmed by CT. The ER attempted to get food to pass with medications and by having pt drink some Coca-Cola, but none of it worked. I spoke to pt about an EGD to look in Esphagus, Stomach and small intestine; if we see any food will remove it. Pt will get some IV fluids and may need PPI or Carafate upon discharge. We discussed risks and complications; not limited to pain, bleeding and even esophageal peforation. He will be at increased risk of bleeding because he is on Plavix, but this cannot be avoided and all questions answered to his satisfaction. STAN VAZQUEZ DO Jul 15, 2019 14:24
[2019-07-15] MEDS ORDERED: SEVOFLURANE (ULTANE) 15 ML INHAL SOLN ONE (14:44)
[2019-07-15] MEDS ORDERED: PHENYLEPHRINE 100 MCG/ML 10 ML (ANESTHESIA) SYR ONE (14:48)
[2019-07-15] MEDS ORDERED: LACTATED RINGERS 1,000 ML IV STA (14:51)
--- NOTE | 2019-07-15 14:51 | Progress Note-Post Operative ---
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
[2019-07-15] MEDS ORDERED: SUCR1TAB36 PO (15:00)
[2019-07-15] MEDS ORDERED: PANT40TA2 PO (15:00)
--- NOTE | 2019-07-15 15:01 | Endoscopy Discharge Instruct ---
Endo Procedure/Findings Findings 1.: Gastritis 2.: Nieves's Esophagus 3.: Hiatal Hernia 4.: Other Findings (Esophageal Ulcer) Discharge Instructions - Activity: You might feel a little sleepy until tomorrow. This is due to the medicine you received to relax you. Until tomorrow, you should: NOT drive a car, operate machinery or power tools. NOT drink any alcoholic beverages. NOT make any important decisions or sign importortant papers. Do not return to work until tomorrow, unless otherwise instructed. Resume previous activities tomorrow. Diet: Start by taking liquids. If you tolerate liquids, advance to solid food. Call my office on Wednesday to make an appointment for ; [phone] 1.: EGD in 6-8 weeks Notify Physician - If you experience excessive bleeding, unusual abdominal pain, fever, or chest pain, contact your doctor immediately. STAN VAZQUEZ DO Jul 15, 2019 15:01
[2019-07-15] MEDS ORDERED: SUGAMMADEX 500 MG/5 ML VIAL (BRIDION) IV ONE (15:08)
--- NOTE | 2019-07-15 15:17 | Anesthesia-General Post-Op ---
General Patient Condition Mental Status/LOC: Same as Preop Cardiovascular: Satisfactory Nausea/Vomiting: Absent Respiratory: Satisfactory Pain: Controlled Complications: Absent Post Op Complications Complications None Follow Up Care/Instructions Patient Instructions None needed. Anesthesia/Patient Condition Patient Condition Patient is doing well, no complaints, stable vital signs, no apparent adverse anesthesia problems. No complications reported per nursing. CRUZ MCKEON CRNA Jul 15, 2019 15:17
--- NOTE | 2019-07-15 21:45 | OPERATIVE REPORT ---
DATE OF SERVICE: PREOPERATIVE DIAGNOSES: Dysphagia, suspected food bolus as well as coronary artery disease, diabetes mellitus and hypertension. POSTOPERATIVE DIAGNOSES: Gastritis, esophagitis, Nieves's esophagus, hiatal hernia. PROCEDURE: EGD. SURGEON: Seven Naidu DO ISOTOPE TECHNOLOGIST: None. ANESTHESIA: General endotracheal tube. SPECIMENS: None. BLOOD LOSS: None. FLUIDS: Per anesthesia. POSTOPERATIVE CONDITION: Stable. INDICATION FOR PROCEDURE: The patient is a 69-year-old male, who had burnt ends yesterday and felt like he had food stuck in his throat. CT done at [facility], radiologist read a possible food stuck in the distal esophagus. FINDINGS: The patient had some ulcers and some bad reflux, looked like he even Nieves's esophagus. He had a small hiatal hernia, some mild gastritis, but did not have a food bolus. PROCEDURE NOTE: After informed consent was obtained, the patient was brought to the endoscopy suite. He was placed in bed, intubated and then started this EGD, placed the scope down the mouth through the esophagus and towards the stomach. On the way down, noted some small food particles thought there may be a portion of food stuck, but able to visualize the GE junction, pushed into the stomach. There was no food in the stomach and none stuck at the GE junction, pushed down through and into the duodenum. Duodenum looked good. Pulled back. There is maybe some mild gastritis at the antrum. There was a retroflexed the scope, saw a small hiatal hernia, little bit of blood up in the upper cardia, I think this is pulled up into the GE junction and saw some pretty severe changes of acid creeping up of the Z line, looked like a Nieves's esophagus and just above this, there, looked like there was some esophageal ulcerations. I elected to not do any biopsies because the patient is on Plavix, pushed through back into the stomach and suctioned the air out of the stomach and then pulled the scope up the esophagus and on the way up to the very top noted a gastric implant, took a picture of this. Again, did not do a biopsy and then pulled the scope up and out the mouth. The patient tolerated the procedure and recovered in endoscopy suite. Job ID: [id number] DocumentID: [id number] Dictated Date: 07/15/2019 15:05:12 Placement Assistant Date: 07/15/2019 21:44:28 Dictated By: SEVEN NAIDU DO
--- OUTSIDE RECORDS SUMMARY | 2019-07-18 23:28 | XMS REPORT | Continuity of Care Document ---
Author Organization Unknown Address Unknown Phone Unavailable Allergies Active Description Code Type Severity Reaction Onset Reported/Identified Relationship to Patient Clinical Status Yes iodine [id number] Drug Allergy Unknown N/A 07/01/2019 Medications There is no data. Problems Date Dx Coded Attending Type Code Diagnosis Diagnosed By 11/18/2018 NILESH DE LA TORRE SHOVEL LOADER OPERATOR Ot Z87.891 PERSONAL HISTORY OF NICOTINE DEPENDENCE 11/23/2018 NILESH DE LA TORRE SHOVEL LOADER OPERATOR Ot Z87.891 PERSONAL HISTORY OF NICOTINE DEPENDENCE 11/25/2018 NILESH DE LA TORRE SHOVEL LOADER OPERATOR Ot R91.1 SOLITARY PULMONARY NODULE 11/25/2018 NILESH DE LA TORRE SHOVEL LOADER OPERATOR Ot Z12.2 ENCNTR SCREEN FOR MALIGNANT NEOPLASM OF 11/25/2018 NILESH DE LA TORRE SHOVEL LOADER OPERATOR Ot Z87.891 PERSONAL HISTORY OF NICOTINE DEPENDENCE 12/16/2018 NILESH DE LA TORRE SHOVEL LOADER OPERATOR Ot R91.1 SOLITARY PULMONARY NODULE 12/16/2018 NILESH DE LA TORRE SHOVEL LOADER OPERATOR Ot Z12.2 ENCNTR SCREEN FOR MALIGNANT NEOPLASM OF 12/16/2018 NILESH DE LA TORRE SHOVEL LOADER OPERATOR Ot Z87.891 PERSONAL HISTORY OF NICOTINE DEPENDENCE 03/16/2019 NILESH DE LA TORRE SHOVEL LOADER OPERATOR Ot N18.3 CHRONIC KIDNEY DISEASE, STAGE 3 (MODERAT 03/16/2019 NILESH DE LA TORRE SHOVEL LOADER OPERATOR Ot R91.8 OTHER NONSPECIFIC ABNORMAL FINDING OF FORTINO 03/19/2019 NILESH DE LA TORRE SHOVEL LOADER OPERATOR Ot N18.3 CHRONIC KIDNEY DISEASE, STAGE 3 (MODERAT 03/19/2019 NILESH DE LA TORRE SHOVEL LOADER OPERATOR Ot R91.8 OTHER NONSPECIFIC ABNORMAL FINDING OF FORTINO 04/04/2019 NILESH DE LA TORRE SHOVEL LOADER OPERATOR Ot N18.3 CHRONIC KIDNEY DISEASE, STAGE 3 (MODERAT 04/04/2019 NILESH DE LA TORRE SHOVEL LOADER OPERATOR Ot R91.8 OTHER NONSPECIFIC ABNORMAL FINDING OF FORTINO 07/05/2019 JOE POWERS MD, Ot I63.9 CEREBRAL INFARCTION, UNSPECIFIED 07/05/2019 JOE POWERS MD, Ot R41.0 DISORIENTATION, UNSPECIFIED 07/05/2019 JOE POWERS MD, Ot Z87.8 91 PERSONAL HISTORY OF NICOTINE DEPENDENCE 07/05/2019 JOE POWERS MD, Ot Z88.8 ALLERGY STATUS TO OTH DRUG/MEDS/BIOL SUB 07/05/2019 JOE POWERS MD, Ot Z95.5 PRESENCE OF CORONARY ANGIOPLASTY IMPLANT Procedures There is no data. Results Test Result Range CBC - 07/14/17 13:57 WHITE BLOOD CELL COUNT 13.7 Thousand/uL 3.8-10.8 RED BLOOD CELL COUNT 4.57 Million/uL 4.2 0-5.80 HEMOGLOBIN 13.2 g/dL 13.2-17.1 HEMATOCRIT 39.7 % 38.5-50.0 MCV 86.9 fL 80.0-100.0 MCH 28.9 pg 27.0-33.0 MCHC 33.2 g/dL 32.0-36.0 RDW 12.7 % 11.0-15.0 PLATELET COUNT 349 Thousand/uL 140-400 MPV 9.8 fL 7.5-12.5 ABSOLUTE NEUTROPHILS 9206 cells/uL 1500- 7800 ABSOLUTE LYMPHOCYTES 3398 cells/uL 850-3 900 ABSOLUTE MONOCYTES 986 cells/uL 200-950 ABSOLUTE EOSINOPHILS 96 cells/uL 15-500 ABSOLUTE BASOPHILS 14 cells/uL 0-200 NEUTROPHILS 67.2 % NRG LYMPHOCYTES 24.8 % NRG MONOCYTES 7.2 % NRG EOSINOPHILS 0.7 % NRG BASOPHILS 0.1 % NRG PDM - PAIN MGMT (PROFILE 3 WITH CONFIRMA TION) - 11/11/17 11:10 Prescribed Drug 1 Hydrocodone NRG Creatinine 39.3 mg/dL > or = 20.0 pH 5.50 4.5 - 9.0 Oxidant NEGATIVE mcg/mL <200 Amphetamines NEGATIVE ng/mL <500 medMATCH Amphetamines CONSISTENT NRG Benzodiazepines NEGATIVE ng/mL <100 medMATCH Benzodiazepines CONSISTENT NRG Marijuana Metabolite NEGATIVE ng/mL <20 medMATCH Marijuana Metab CONSISTENT NRG Cocaine Metabolite NEGATIVE ng/mL <150 medMATCH Cocaine Metab CONSISTENT NRG Opiates NEGATIVE ng/mL <100 medMATCH Opiates INCONSISTENT NRG Oxycodone NEGATIVE ng/mL <100 medMATCH Oxycodone CONSISTENT NRG COMMENT NRG C-PEPTIDE, SERUM - 11/24/17 08:31 C-PEPTIDE 2.28 ng/mL 0.80-3.85 [facility] - 03/03/18 09:53 GLUCOSE 131 mg/dL 65-99 UREA NITROGEN (BUN) 10 mg/dL 7-25 CREATININE 1.10 mg/dL 0.70-1.25 eGFR NON-AFR. AZERBAIJANI 69 mL/min/1.73m2 > OR = 60 eGFR 80 mL/min/1.73m2 > OR = 60 BUN/CREATININE RATIO NOT APPLICABLE (calc) 6-22 SODIUM 141 mmol/L 135-146 POTASSIUM 4.4 mmol/L 3.5-5.3 CHLORIDE 107 mmol/L 98-110 CARBON DIOXIDE 27 mmol/L 20-32 CALCIUM 9.1 mg/dL 8.6-10.3 PROTEIN, TOTAL 6.8 g/dL 6.1-8.1 ALBUMIN 4.1 g/dL 3.6-5.1 GLOBULIN 2.7 g/dL (calc) 1.9-3.7 ALBUMIN/GLOBULIN RATIO 1.5 (calc) 1.0-2. 5 BILIRUBIN, TOTAL 0.6 mg/dL 0.2-1.2 ALKALINE PHOSPHATASE 121 U/L 40-115 AST 15 U/L 10-35 ALT 15 U/L 9-46 MICROALBUMIN/CREATININE RATIO, URINE - 0 08/01/18 15:24 CREATININE, RANDOM URINE 53 mg/dL 20-32 0 MICROALBUMIN 7.4 mg/dL See Note: MICROALBUMIN/CREATININE RATIO, RANDOM URINE 140 mcg/mg creat <30 [facility] - 08/15/18 09:16 GLUCOSE 182 mg/dL 65-99 UREA NITROGEN (BUN) 19 mg/dL 7-25 CREATININE 1.30 mg/dL 0.70-1.25 eGFR NON-AFR. AZERBAIJANI 56 mL/min/1.73m2 > OR = 60 eGFR 65 mL/min/1.73m2 > OR = 60 BUN/CREATININE RATIO 15 (calc) 6-22 SODIUM 139 mmol/L 135-146 POTASSIUM 4.6 mmol/L 3.5-5.3 CHLORIDE 106 mmol/L 98-110 CARBON DIOXIDE 28 mmol/L 20-32 CALCIUM 9.0 mg/dL 8.6-10.3 PROTEIN, TOTAL 6.6 g/dL 6.1-8.1 ALBUMIN 3.9 g/dL 3.6-5.1 GLOBULIN 2.7 g/dL (calc) 1.9-3.7 ALBUMIN/GLOBULIN RATIO 1.4 (calc) 1.0-2. 5 BILIRUBIN, TOTAL 0.3 mg/dL 0.2-1.2 ALKALINE PHOSPHATASE 122 U/L 40-115 AST 14 U/L 10-35 ALT 19 U/L 9-46 CBC - 11/09/18 09:30 WHITE BLOOD CELL COUNT 12.9 Thousand/uL 3.8-10.8 RED BLOOD CELL COUNT 4.35 Million/uL 4.2 0-5.80 HEMOGLOBIN 12.7 g/dL 13.2-17.1 HEMATOCRIT 38.6 % 38.5-50.0 MCV 88.7 fL 80.0-100.0 MCH 29.2 pg 27.0-33.0 MCHC 32.9 g/dL 32.0-36.0 RDW 12.2 % 11.0-15.0 PLATELET COUNT 294 Thousand/uL 140-400 MPV 9.9 fL 7.5-12.5 ABSOLUTE NEUTROPHILS 8772 cells/uL 1500- 7800 ABSOLUTE LYMPHOCYTES 3070 cells/uL 850-3 900 ABSOLUTE MONOCYTES 839 cells/uL 200-950 ABSOLUTE EOSINOPHILS 206 cells/uL 15-500 ABSOLUTE BASOPHILS 13 cells/uL 0-200 NEUTROPHILS 68 % NRG LYMPHOCYTES 23.8 % NRG MONOCYTES 6.5 % NRG EOSINOPHILS 1.6 % NRG BASOPHILS 0.1 % NRG PSA - 11/09/18 09:30 PSA, TOTAL 0.8 ng/mL < OR = 4.0 PDM - PAIN MGMT (PROFILE 3 WITH CONFIRMA TION) - 11/09/18 09:30 Prescribed Drug 1 Hydrocodone NRG Creatinine 90.9 mg/dL > or = 20.0 pH 6.30 4.5 - 9.0 Oxidant NEGATIVE mcg/mL <200 Amphetamines NEGATIVE ng/mL <500 medMATCH Amphetamines CONSISTENT NRG Benzodiazepines NEGATIVE ng/mL <100 medMATCH Benzodiazepines CONSISTENT NRG Marijuana Metabolite NEGATIVE ng/mL <20 medMATCH Marijuana Metab CONSISTENT NRG Cocaine Metabolite NEGATIVE ng/mL <150 medMATCH Cocaine Metab CONSISTENT NRG Opiates POSITIVE ng/mL <100 Oxycodone NEGATIVE ng/mL <100 medMATCH Oxycodone CONSISTENT NRG COMMENT NRG Codeine NEGATIVE ng/mL <50 medMATCH Codeine CONSISTENT NRG Hydrocodone 263 ng/mL <50 medMATCH Hydrocodone CONSISTENT NRG Hydromorphone 54 ng/mL <50 medMATCH Hydromorphone CONSISTENT NRG Morphine NEGATIVE ng/mL <50 medMATCH Morphine CONSISTENT NRG Norhydrocodone 377 ng/mL <50 medMATCH Norhydrocodone CONSISTENT NRG Prescribed Drug 2 Hydrocodone NRG [id number] - 03/13/19 09:27 Serum or plasma urea nitrogen measurement (mass/volume ) 23 mg/dL 7-18 Serum or plasma creatinine measurement (mass/volume) 1.73 mg/dL 0.60-1.30 Serum or plasma urea nitrogen/creatinine mass ratio 13 NRG Serum or plasma creatinine measurement w ith calculation of estimated glomerular filtration rate 39 NRG CMP - 03/27/19 10:41 GLUCOSE 128 mg/dL 65-99 UREA NITROGEN (BUN) 21 mg/dL 7-25 CREATININE 1.56 mg/dL 0.70-1.18 eGFR NON-AFR. AZERBAIJANI 44 mL/min/1.73m2 > OR = 60 eGFR 51 mL/min/1.73m2 > OR = 60 BUN/CREATININE RATIO 13 (calc) 6-22 SODIUM 141 mmol/L 135-146 POTASSIUM 4.5 mmol/L 3.5-5.3 CHLORIDE 106 mmol/L 98-110 CARBON DIOXIDE 28 mmol/L 20-32 CALCIUM 9.3 mg/dL 8.6-10.3 PROTEIN, TOTAL 6.7 g/dL 6.1-8.1 ALBUMIN 3.9 g/dL 3.6-5.1 GLOBULIN 2.8 g/dL (calc) 1.9-3.7 ALBUMIN/GLOBULIN RATIO 1.4 (calc) 1.0-2. 5 BILIRUBIN, TOTAL 0.5 mg/dL 0.2-1.2 ALKALINE PHOSPHATASE 124 U/L 40-115 AST 13 U/L 10-35 ALT 15 U/L 9-46 Complete urinalysis with reflex to cultu re - 07/01/19 20:28 Urine color determination YELLOW NRG Urine clarity determination CLEAR NR G Urine pH measurement by test strip 6.0 5-9 Specific gravity of urine by test strip 1.010 1.016-1.022 Urine protein assay by test strip, semi-quantitative 2+ NEGATIVE Urine glucose detection by automated test strip 1+ NEGATIVE Erythrocytes detection in urine sediment by light micr oscopy TRACE-I NEGATIVE Urine ketones detection by automated test strip NE GATIVE NEGATIVE Urine nitrite detection by test strip NEGATIVE NEGATIVE Urine total bilirubin detection by test strip NEGA TIVE NEGATIVE Urine urobilinogen measurement by automated test strip (mass/volume) 0.2 mg/dL < = 1.0 Urine leukocyte esterase detection by dipstick NEG ATIVE NEGATIVE Automated urine sediment erythrocyte cou nt by microscopy (number/high power field) [HPF] NRG Automated urine sediment leukocyte count by microscopy (number/high power field) NONE NRG Bacteria detection in urine sediment by light microsco py NEGATIVE NRG Crystals detection in urine sediment by light microsco py NONE NRG Casts detection in urine sediment by light microscopy NONE NRG Mucus detection in urine sediment by light microscopy NEGATIVE NRG Complete urinalysis with reflex to culture NO NRG Complete blood count (CBC) with automate d white blood cell (WBC) differential - 07/01/19 20:55 Blood leukocytes automated count (number/volume) 15.2 10*3/uL 4.3-11.0 Blood erythrocytes automated count (number/volume) 4.16 10*6/uL 4.35-5.85 Venous blood hemoglobin measurement (mass/volume) 12.0 g/dL 13.3-17.7 Blood hematocrit (volume fraction) 37 % 40-54 Automated erythrocyte mean corpuscular volume 88 [ foz_us] 80-99 Automated erythrocyte mean corpuscular h emoglobin (mass per erythrocyte) 29 pg 25-34 Automated erythrocyte mean corpuscular h emoglobin concentration measurement (mass/volume) 33 g/dL 32-36 Automated erythrocyte distribution width ratio 13. 2 % 10.0- 14.5 Automated blood platelet count (count/volume) 231 10*3/uL 130-400 Automated blood platelet mean volume measurement 10.0 [foz_us] 7.4-10.4 Automated blood neutrophils/100 leukocytes 63 % 42-75 Automated blood lymphocytes/100 leukocytes 26 % 12-44 Blood monocytes/100 leukocytes 8 % 0-12 Automated blood eosinophils/100 leukocytes 2 % 0-10 Automated blood basophils/100 leukocytes 0 % 0-10 Blood neutrophils automated count (number/volume) 9.6 10*3 1.8-7.8 Blood lymphocytes automated count (number/volume) 4.0 10*3 1.0-4.0 Blood monocytes automated count (number/volume) 1. 3 10*3 0.0-1.0 Automated eosinophil count 0.3 10*3/uL 0 .0-0.3 Automated blood basophil count (count/volume) 0.0 10*3/uL 0.0-0.1 PT panel in platelet poor plasma by coag ulation assay - 07/01/19 20:55 Prothrombin time (PT) in platelet poor plasma by coagu lation assay 13.4 s 12.2-14.7 INR in platelet poor plasma or blood by coagulation as say 1.0 0.8-1.4 Activated partial thromboplastin time (a PTT) in platelet poor plasma bycoagulation assay - 07/01/19 20:55 Activated partial thromboplastin time (a PTT) in platelet poor plasma bycoagulation assay 25 s 24-35 Comprehensive metabolic panel - 07/01/19 20:55 Serum or plasma sodium measurement (moles/volume) 140 mmol/L 135-145 Serum or plasma potassium measurement (moles/volume) 4.7 mmol/L 3.6-5.0 Serum or plasma chloride measurement (moles/volume) 100 mmol/L 98-107 Carbon dioxide 27 mmol/L 21-32 Serum or plasma anion gap determination (moles/volume) 13 mmol/L 5-14 Serum or plasma urea nitrogen measurement (mass/volume ) 30 mg/dL 7-18 Serum or plasma creatinine measurement (mass/volume) 2.08 mg/dL 0.60-1.30 Serum or plasma urea nitrogen/creatinine mass ratio 14 NRG Serum or plasma creatinine measurement w ith calculation of estimated glomerular filtration rate 32 NRG Serum or plasma glucose measurement (mass/volume) 80 mg/dL 70-105 Serum or plasma calcium measurement (mass/volume) 8.9 mg/dL 8.5-10.1 Serum or plasma total bilirubin measurement (mass/volu me) 0.2 mg/dL 0.1-1.0 Serum or plasma alkaline phosphatase anastasia surement (enzymatic activity/volume) 155 U/L 40-136 Serum or plasma aspartate aminotransfera se measurement (enzymatic activity/volume) 15 U/L 5-34 Serum or plasma alanine aminotransferase measurement (enzymatic activity/volume) 17 U/L 0-55 Serum or plasma protein measurement (mass/volume) 6.8 g/dL 6.4-8.2 Serum or plasma albumin measurement (mass/volume) 3.9 g/dL 3.2-4.5 CALCIUM CORRECTED 9.0 mg/dL 8.5-10.1 Manual absolute plasma cell count - 06/11 06/29 20:55 Blood monocytes/100 leukocytes 5 % NRG Manual blood segmented neutrophils/100 leukocytes 60 % NRG Blood band neutrophils/100 leukocytes 1 % NRG Manual blood lymphocytes/100 leukocytes 18 % NRG Manual eosinophils/100 leukocytes in nose 3 % NRG Blood lymphocytes variant/100 leukocytes 13 % NRG Blood anisocytosis detection by light microscopy S LIGHT NRG Blood poikilocytosis detection by light microscopy MODERATE NRG Blood microcytes detection by light microscopy MAR KED NRG Blood helmet cells detection by light microscopy S LIGHT NRG Complete blood count (CBC) with automate d white blood cell (WBC) differential - 07/15/19 10:35 Blood leukocytes automated count (number/volume) 18.1 10*3/uL 4.3-11.0 Blood erythrocytes automated count (number/volume) 4.38 10*6/uL 4.35-5.85 Venous blood hemoglobin measurement (mass/volume) 12.7 g/dL 13.3-17.7 Blood hematocrit (volume fraction) 39 % 40-54 Automated erythrocyte mean corpuscular volume 88 [ foz_us] 80-99 Automated erythrocyte mean corpuscular h emoglobin (mass per erythrocyte) 29 pg 25-34 Automated erythrocyte mean corpuscular h emoglobin concentration measurement (mass/volume) 33 g/dL 32-36 Automated erythrocyte distribution width ratio 12. 9 % 10.0- 14.5 Automated blood platelet count (count/volume) 341 10*3/uL 130-400 Automated blood platelet mean volume measurement 9.9 [foz_us] 7.4-10.4 Automated blood neutrophils/100 leukocytes 70 % 42-75 Automated blood lymphocytes/100 leukocytes 22 % 12-44 Blood monocytes/100 leukocytes 6 % 0-12 Automated blood eosinophils/100 leukocytes 1 % 0-10 Automated blood basophils/100 leukocytes 0 % 0-10 Blood neutrophils automated count (number/volume) 12.7 10*3 1.8-7.8 Blood lymphocytes automated count (number/volume) 4.0 10*3 1.0-4.0 Blood monocytes automated count (number/volume) 1. 1 10*3 0.0-1.0 Automated eosinophil count 0.2 10*3/uL 0 .0-0.3 Automated blood basophil count (count/volume) 0.0 10*3/uL 0.0-0.1 Manual absolute plasma cell count - 11/26 10:35 Blood monocytes/100 leukocytes 2 % NRG Manual blood segmented neutrophils/100 leukocytes 72 % NRG Blood band neutrophils/100 leukocytes 0 % NRG Manual blood lymphocytes/100 leukocytes 24 % NRG Manual eosinophils/100 leukocytes in nose 2 % NRG Manual blood basophils/100 leukocytes 0 % NRG Blood erythrocyte morphology finding identification NORMAL NRG Capillary blood glucose measurement by g lucometer (mass/volume) - 07/15/19 14:23 Capillary blood glucose measurement by glucometer (mas s/volume) 116 mg/dL 70-110 Encounters ACCT No. Visit Date/Time Discharge Status Pt. Type Provider Facility Loc./Unit Complaint [id number] 07/15/2019 09:40:00 07/15/2019 23:59: 59 CLS Outpatient NILESH DE LA TORRE [facility] IN [facility] [id number] 2019 09:20:00 Document Registration [id number] 11/09/2018 08:40:00 Document Registration [id number] 08/15/2018 08:20:00 Document Registration [id number] 08/01/2018 09:00:00 Document Registration [id number] 03/03/2018 08:40:00 Document Registration [id number] 11/24/2017 09:00:00 Document Registration [id number] 11/11/2017 10:20:00 Document Registration [id number] 07/14/2017 10:20:00 Document Registration [id number] 07/15/2019 13:08:00 16:42:00 DIS Outpatient STAN VAZQUEZ DO [facility] ENDO FB IN THROAT [id number] 07/01/2019 20:02:00 020 23:15:00 DIS Outpatient JOE POWERS MD [facility] ER FS CONFUSION [id number] 03/13/2019 09:07:00 23:59:59 CLS Outpatient NILESH DE LA TORRE APRN [facility] RAD FS LUNG NODULE [id number] 11/23/2018 11:04:00 23:59:59 CLS Outpatient NILESH DE LA TORRE APRN [facility] RAD SCREENING
--- OUTSIDE RECORDS SUMMARY | 2019-07-19 01:15 | XMS REPORT | Continuity of Care Document ---
Author Organization Unknown Address Unknown Phone Unavailable Allergies Active Description Code Type Severity Reaction Onset Reported/Identified Relationship to Patient Clinical Status Yes iodine [id number] Drug Allergy Unknown N/A 07/01/2019 Medications There is no data. Problems Date Dx Coded Attending Type Code Diagnosis Diagnosed By 11/18/2018 NILESH DE LA TORRE MANAGER TECHNICAL TRAINING Ot Z87.891 PERSONAL HISTORY OF NICOTINE DEPENDENCE 11/23/2018 NILESH DE LA TORRE MANAGER TECHNICAL TRAINING Ot Z87.891 PERSONAL HISTORY OF NICOTINE DEPENDENCE 11/25/2018 NILESH DE LA TORRE MANAGER TECHNICAL TRAINING Ot R91.1 SOLITARY PULMONARY NODULE 11/25/2018 NILESH DE LA TORRE MANAGER TECHNICAL TRAINING Ot Z12.2 ENCNTR SCREEN FOR MALIGNANT NEOPLASM OF 11/25/2018 NILESH DE LA TORRE MANAGER TECHNICAL TRAINING Ot Z87.891 PERSONAL HISTORY OF NICOTINE DEPENDENCE 12/16/2018 NILESH DE LA TORRE MANAGER TECHNICAL TRAINING Ot R91.1 SOLITARY PULMONARY NODULE 12/16/2018 NILESH DE LA TORRE MANAGER TECHNICAL TRAINING Ot Z12.2 ENCNTR SCREEN FOR MALIGNANT NEOPLASM OF 12/16/2018 NILESH DE LA TORRE MANAGER TECHNICAL TRAINING Ot Z87.891 PERSONAL HISTORY OF NICOTINE DEPENDENCE 03/16/2019 NILESH DE LA TORRE MANAGER TECHNICAL TRAINING Ot N18.3 CHRONIC KIDNEY DISEASE, STAGE 3 (MODERAT 03/16/2019 NILESH DE LA TORRE MANAGER TECHNICAL TRAINING Ot R91.8 OTHER NONSPECIFIC ABNORMAL FINDING OF FORTINO 03/19/2019 NILESH DE LA TORRE MANAGER TECHNICAL TRAINING Ot N18.3 CHRONIC KIDNEY DISEASE, STAGE 3 (MODERAT 03/19/2019 NILESH DE LA TORRE MANAGER TECHNICAL TRAINING Ot R91.8 OTHER NONSPECIFIC ABNORMAL FINDING OF [place] 04/04/2019 NILESH DE LA TORRE MANAGER TECHNICAL TRAINING Ot N18.3 CHRONIC KIDNEY DISEASE, STAGE 3 (MODERAT 04/04/2019 NILESH DE LA TORRE MANAGER TECHNICAL TRAINING Ot R91.8 OTHER NONSPECIFIC ABNORMAL FINDING OF [...] - 11/24/17 08:31 C-PEPTIDE 2.28 ng/mL 0.80-3.85 [facility] - 03/03/18 09:53 GLUCOSE 131 mg/dL 65-99 UREA NITROGEN (BUN) 10 mg/dL 7-25 CREATININE 1.10 mg/dL 0.70-1.25 eGFR NON-AFR. [place] 69 mL/min/1.73m2 > OR = 60 eGFR [...] RATIO, RANDOM URINE 140 mcg/mg creat <30 [facility] - 08/15/18 09:16 GLUCOSE 182 mg/dL 65-99 UREA NITROGEN (BUN) 19 mg/dL 7-25 CREATININE 1.30 mg/dL 0.70-1.25 eGFR NON-AFR. [place] 56 mL/min/1.73m2 > OR = 60 eGFR [...] CONSISTENT NRG Prescribed Drug 2 Hydrocodone NRG [id number] - 03/13/19 09:27 Serum or plasma urea [...] 7-25 CREATININE 1.56 mg/dL 0.70-1.18 eGFR NON-AFR. [place] 44 mL/min/1.73m2 > OR = 60 eGFR [...] Status Pt. Type Provider Facility Loc./Unit Complaint [id number] 07/15/2019 09:40:00 07/15/2019 23:59: 59 CLS Outpatient NILESH DE LA TORRE [facility] [id number] 2019 09:20:00 Document Registration [id number] 11/09/2018 08:40:00 Document Registration [id number] 08/15/2018 08:20:00 Document Registration [id number] 08/01/2018 09:00:00 Document Registration [id number] 03/03/2018 08:40:00 Document Registration [id number] 11/24/2017 09:00:00 Document Registration [id number] 11/11/2017 10:20:00 Document Registration [id number] 07/14/2017 10:20:00 Document Registration [id number] 07/15/2019 13:08:00 16:42:00 DIS Outpatient STAN VAZQUEZ DO [facility] ENDO FB IN THROAT [id number] 07/01/2019 20:02:00 020 23:15:00 DIS Outpatient JOE POWERS MD [facility] ER FS CONFUSION [id number] 03/13/2019 09:07:00 23:59:59 CLS Outpatient NILESH DE LA TORRE APRN [facility] RAD FS LUNG NODULE [id number] 11/23/2018 11:04:00 23:59:59 CLS Outpatient NILESH DE LA TORRE APRN [facility] RAD SCREENING
== END 2019-07-15 16:42 | disposition home or self-care (01) ==
LOC: EDUNIT# 10:03 → ER FS 10:05 → ENDO 13:08
PROVIDERS: ATTEND Surgery
DX: K20.9 Esophagitis, unspecified (principal); K29.70 Gastritis, unspecified, without bleeding; K44.9 Diaphragmatic hernia without obstruction or gangrene; I25.10 Atherosclerotic heart disease of native coronary artery without angina pectoris; E11.9 Type 2 diabetes mellitus without complications; E78.00 Pure hypercholesterolemia, unspecified; I10 Essential (primary) hypertension; I25.2 Old myocardial infarction; Z79.02 Long term (current) use of antithrombotics/antiplatelets; Z95.1 Presence of aortocoronary bypass graft; Z79.4 Long term (current) use of insulin; Z88.8 Allergy status to other drugs, medicaments and biological substances
CPT/HCPCS: 36415; 70360; 70490; 71045; 71250; 82962; 85007; 85027

== ENCOUNTER 2019-10-05 09:06 | Outpatient (RCR) | payer MEDICARE, OTHER ==
[~2019-10-05] VITALS: Ht 167.7 cm; Wt 69.5 kg
[~2019-10-05 09:06] MED LIST changes: +AMIT100T2 PO; -ATOR80TA76; +ATOR80TA76 PO; -CITA20TA9; +CITA20TA9 PO; -CLOP75TA28; +CLOP75TA28 PO; +FLUT9.9S NSEACH; +HYDR-4342 PO; +INSU100I14 SQ; -LISI10TA2; +LISI10TA2 PO; +PANT40TA2 PO; +PANT40TA3 PO; +RT-ALBUINH IH; +SUCR1TAB36 PO
== END 2019-10-05 15:37 | disposition home or self-care (01) ==
LOC: PREOP 09:06
PROVIDERS: ATTEND Surgery
DX: Z01.818 Encounter for other preprocedural examination (principal); Z11.59 Encounter for screening for other viral diseases
CPT/HCPCS: 87635

== ENCOUNTER 2019-10-09 08:12 | Day surgery (SDC) | payer MEDICARE, OTHER ==
[~2019-10-09] VITALS: Ht 167.7 cm; Wt 69.5 kg
[2019-10-09] VITALS (8 sets, daily range): BP systolic 93–177; BP diastolic 48–80
[2019-10-09] MEDS ORDERED: LACTATED RINGERS 1,000 ML IV ONE (08:13)
--- OUTSIDE RECORDS SUMMARY | 2019-10-09 08:21 | XMS REPORT | Continuity of Care Document ---
Demographics Preferred Language Unknown Marital Status Unknown Advent Affiliation Unknown Race Unknown Ethnic Group Unknown Author Organization Unknown Address Unknown Phone Unavailable Allergies Active Description Code Type Severity Reaction Onset Reported/Identified Relationship to Patient Clinical Status Yes iodine [id number] Drug Allergy Unknown N/A 07/01/2019 Medications There is no data. Problems Date Dx Coded Attending Type Code Diagnosis Diagnosed By 04/08/1536 STAN VAZQUEZ DO Ot Z01.8 18 ENCOUNTER FOR OTHER PREPROCEDURAL EXAMIN 04/08/1536 STAN VAZQUEZ DO Ot Z11.5 9 ENCOUNTER FOR SCREENING FOR OTHER VIRAL 11/18/2018 NILESH DE LA TORRE APRN Ot Z87.891 PERSONAL HISTORY OF NICOTINE DEPENDENCE 11/23/2018 NILESH DE LA TORRE REFRIGERATION SERVICE TECHNICIAN Ot Z87.891 PERSONAL HISTORY OF NICOTINE DEPENDENCE 11/25/2018 NILESH DE LA TORRE REFRIGERATION SERVICE TECHNICIAN Ot R91.1 SOLITARY PULMONARY NODULE 11/25/2018 NILESH DE LA TORRE REFRIGERATION SERVICE TECHNICIAN Ot Z12.2 ENCNTR SCREEN FOR MALIGNANT NEOPLASM OF 11/25/2018 NILESH DE LA TORRE REFRIGERATION SERVICE TECHNICIAN Ot Z87.891 PERSONAL HISTORY OF NICOTINE DEPENDENCE 12/16/2018 NILESH DE LA TORRE REFRIGERATION SERVICE TECHNICIAN Ot R91.1 SOLITARY PULMONARY NODULE 12/16/2018 NILESH DE LA TORRE REFRIGERATION SERVICE TECHNICIAN Ot Z12.2 ENCNTR SCREEN FOR MALIGNANT NEOPLASM OF 12/16/2018 NILESH DE LA TORRE REFRIGERATION SERVICE TECHNICIAN Ot Z87.891 PERSONAL HISTORY OF NICOTINE DEPENDENCE 03/16/2019 NILESH DE LA TORRE REFRIGERATION SERVICE TECHNICIAN Ot N18.3 CHRONIC KIDNEY DISEASE, STAGE 3 (MODERAT 03/16/2019 NILESH DE LA TORRE APRN Ot R91.8 OTHER NONSPECIFIC ABNORMAL FINDING OF [place] 03/19/2019 NILESH DE LA TORRE REFRIGERATION SERVICE TECHNICIAN Ot N18.3 CHRONIC KIDNEY DISEASE, STAGE 3 (MODERAT 03/19/2019 NILESH DE LA TORRE REFRIGERATION SERVICE TECHNICIAN Ot R91.8 OTHER NONSPECIFIC ABNORMAL FINDING OF [place] 04/04/2019 NILESH DE LA TORRE REFRIGERATION SERVICE TECHNICIAN Ot N18.3 CHRONIC KIDNEY DISEASE, STAGE 3 (MODERAT 04/04/2019 NILESH DE LA TORRE REFRIGERATION SERVICE TECHNICIAN Ot R91.8 OTHER NONSPECIFIC ABNORMAL FINDING OF [place] 07/01/2019 PRIYA MEJIAS, JOE [place] Ot I63.9 CEREBRAL INFARCTION, UNSPECIFIED 07/01/2019 JOE POWERS MD Ot R41.0 DISORIENTATION, UNSPECIFIED 07/01/2019 JOE POWERS MD Ot Z87.8 91 PERSONAL HISTORY OF NICOTINE DEPENDENCE 07/01/2019 JOE POWERS MD Ot Z88.8 ALLERGY STATUS TO OT DRUG/MEDS/BIOL SUB 07/01/2019 PRIYA MEJIAS, JOE [place] Ot Z95.5 PRESENCE OF CORONARY ANGIOPLASTY IMPLANT 07/05/2019 JOE POWERS MD Ot I63.9 CEREBRAL INFARCTION, UNSPECIFIED 07/05/2019 JOE POWERS MD Ot R41.0 DISORIENTATION, UNSPECIFIED 07/05/2019 JOE POWERS MD Ot Z87.8 91 PERSONAL HISTORY OF NICOTINE DEPENDENCE 07/05/2019 JOE POWERS MD Ot Z88.8 ALLERGY STATUS TO OT DRUG/MEDS/BIOL SUB 07/05/2019 PRIYA MEJIAS, JOE [place] Ot Z95.5 PRESENCE OF CORONARY ANGIOPLASTY IMPLANT 07/15/2019 GEORGE MENDES STAN B Ot E11.9 TYPE 2 DIABETES MELLITUS WITHOUT COMPLIC 07/15/2019 GEORGE MENDES STAN B Ot E78.0 0 PURE HYPERCHOLESTEROLEMIA, UNSPECIFIED 07/15/2019 GEORGE MENDES STAN B Ot I10 ESSENTIAL (PRIMARY) HYPERTENSION 07/15/2019 GEORGE MENDES STAN B Ot I25.1 0 ATHSCL HEART DISEASE OF [place] CORONARY 07/15/2019 GEORGE MENDES STAN B Ot I25.2 OLD MYOCARDIAL INFARCTION 07/15/2019 GEORGE MENDES STAN B Ot K20.9 ESOPHAGITIS, UNSPECIFIED 07/15/2019 GEORGE MENDES STAN B Ot K29.7 0 GASTRITIS, UNSPECIFIED, WITHOUT BLEEDING 07/15/2019 GEORGE MENDES STAN B Ot K44.9 DIAPHRAGMATIC HERNIA WITHOUT OBSTRUCTION 07/15/2019 GEORGE MENDES STAN B Ot Z79.0 2 GROUP HOME (CURRENT) USE OF ANTITHROMBOTI 07/15/2019 BRANDEN VAZQUEZ DOIC B Ot Z79.4 GROUP HOME (CURRENT) USE OF INSULIN 07/15/2019 [facility], STAN B Ot Z88.8 ALLERGY STATUS TO OTH DRUG/MEDS/BIOL SUB 07/15/2019 [facility], STAN B Ot Z95.1 PRESENCE OF AORTOCORONARY BYPASS GRAFT 07/19/2019 [facility], STAN B Ot E11.9 TYPE 2 DIABETES MELLITUS WITHOUT COMPLIC 07/19/2019 [facility], STAN B Ot E78.0 0 PURE HYPERCHOLESTEROLEMIA, UNSPECIFIED 07/19/2019 [facility] DO, STAN B Ot I10 ESSENTIAL (PRIMARY) HYPERTENSION 07/19/2019 [facility], STAN B Ot I25.1 0 ATHSCL HEART DISEASE OF [place] CORONARY 07/19/2019 [facility], STAN B Ot I25.2 OLD MYOCARDIAL INFARCTION 07/19/2019 [facility], STAN B Ot K20.9 ESOPHAGITIS, UNSPECIFIED 07/19/2019 [facility], STAN B Ot K29.7 0 GASTRITIS, UNSPECIFIED, WITHOUT BLEEDING 07/19/2019 [facility], STAN B Ot K44.9 DIAPHRAGMATIC HERNIA WITHOUT OBSTRUCTION 07/19/2019 [facility], STAN B Ot Z79.0 2 GROUP HOME (CURRENT) USE OF ANTITHROMBOTI 07/19/2019 [facility], STAN B Ot Z79.4 GROUP HOME (CURRENT) USE OF INSULIN 07/19/2019 [facility], STAN B Ot Z88.8 ALLERGY STATUS TO OTH DRUG/MEDS/BIOL SUB 07/19/2019 [facility], STAN B Ot Z95.1 PRESENCE OF AORTOCORONARY BYPASS GRAFT 07/19/2019 [facility], STAN B Ot E11.9 TYPE 2 DIABETES MELLITUS WITHOUT COMPLIC 07/19/2019 [facility], STAN B Ot E78.0 0 PURE HYPERCHOLESTEROLEMIA, UNSPECIFIED 07/19/2019 [facility] DO, STAN B Ot I10 ESSENTIAL (PRIMARY) HYPERTENSION 07/19/2019 [facility], STAN B Ot I25.1 0 ATHSCL HEART DISEASE OF [place] CORONARY 07/19/2019 [place], STAN B Ot I25.2 OLD MYOCARDIAL INFARCTION 07/19/2019 [facility] DO, STAN B Ot K20.9 ESOPHAGITIS, UNSPECIFIED 07/19/2019 [facility] DO, STAN B Ot K29.7 0 GASTRITIS, UNSPECIFIED, WITHOUT BLEEDING 07/19/2019 [facility] DO, STAN B Ot K44.9 DIAPHRAGMATIC HERNIA WITHOUT OBSTRUCTION 07/19/2019 [facility], STAN B Ot Z79.0 2 GROUP HOME (CURRENT) USE OF ANTITHROMBOTI 07/19/2019 [facility] DO, STAN B Ot Z79.4 HORSEBACK EXCAVATOR (CURRENT) USE OF INSULIN 07/19/2019 [facility], STAN B Ot Z88.8 ALLERGY STATUS TO OTH DRUG/MEDS/BIOL SUB 07/19/2019 [facility] DO, STAN B Ot Z95.1 PRESENCE OF AORTOCORONARY BYPASS GRAFT 07/20/2019 [facility] DO, STAN B Ot E11.9 TYPE 2 DIABETES MELLITUS WITHOUT COMPLIC 07/20/2019 [facility], STAN B Ot E78.0 0 PURE HYPERCHOLESTEROLEMIA, UNSPECIFIED 07/20/2019 [facility] DO, STAN B Ot I10 ESSENTIAL (PRIMARY) HYPERTENSION 07/20/2019 [facility], STAN B Ot I25.1 0 ATHSCL HEART DISEASE OF [place] CORONARY 07/20/2019 [facility], STAN B Ot I25.2 OLD MYOCARDIAL INFARCTION 07/20/2019 [facility], STAN B Ot K20.9 ESOPHAGITIS, UNSPECIFIED 07/20/2019 [facility], STAN B Ot K29.7 0 GASTRITIS, UNSPECIFIED, WITHOUT BLEEDING 07/20/2019 [facility], STAN B Ot K44.9 DIAPHRAGMATIC HERNIA WITHOUT OBSTRUCTION 07/20/2019 [facility], STAN B Ot Z79.0 2 GROUP HOME (CURRENT) USE OF ANTITHROMBOTI 07/20/2019 [facility], STAN B Ot Z79.4 HORSEBACK EXCAVATOR (CURRENT) USE OF INSULIN 07/20/2019 [facility] DO, STAN B Ot Z88.8 ALLERGY STATUS TO OTH DRUG/MEDS/BIOL SUB 07/20/2019 [facility] DO, STAN B Ot Z95.1 PRESENCE OF AORTOCORONARY BYPASS GRAFT 07/21/2019 [facility] DO, STAN B Ot E11.9 TYPE 2 DIABETES MELLITUS WITHOUT COMPLIC 07/21/2019 [facility] DO, STAN B Ot E78.0 0 PURE HYPERCHOLESTEROLEMIA, UNSPECIFIED 07/21/2019 [facility] DO, STAN B Ot I10 ESSENTIAL (PRIMARY) HYPERTENSION 07/21/2019 [place] DO, STAN B Ot I25.1 0 ATHSCL HEART DISEASE OF [place] CORONARY 07/21/2019 STAN VAZQUEZ DO Ot I25.2 OLD MYOCARDIAL INFARCTION 07/21/2019 STAN VAZQUEZ DO Ot K20.9 ESOPHAGITIS, UNSPECIFIED 07/21/2019 STAN VAZQUEZ DO B Ot K29.7 0 GASTRITIS, UNSPECIFIED, WITHOUT BLEEDING 07/21/2019 STAN VAZQUEZ DO Ot K44.9 DIAPHRAGMATIC HERNIA WITHOUT OBSTRUCTION 07/21/2019 STAN VAZQUEZ DO Ot Z79.0 2 HORSEBACK EXCAVATOR (CURRENT) USE OF ANTITHROMBOTI 07/21/2019 STAN VAZQUEZ DO Ot Z79.4 HORSEBACK EXCAVATOR (CURRENT) USE OF INSULIN 07/21/2019 STAN VAZQUEZ DO Ot Z88.8 ALLERGY STATUS TO [facility] DRUG/MEDS/BIOL SUB 07/21/2019 STAN VAZQUEZ DO Ot Z95.1 PRESENCE OF AORTOCORONARY BYPASS GRAFT Procedures There is no data. Results Test Result Range CBC With Differential/Platelet - 6 16:42 WBC 14.3 x10E3/uL 3.4-10.8 RBC 4.66 x10E6/uL 4.14-5.80 Hemoglobin 13.5 g/dL 12.6-17.7 Hematocrit 40.0 % 37.5-51.0 MCV 86 fL 79-97 MCH 29.0 pg 26.6-33.0 MCHC 33.8 g/dL 31.5-35.7 RDW 13.4 % 12.3-15.4 Platelets 340 x10E3/uL 150-379 Neutrophils 61 % Lymphs 31 % Monocytes 7 % Eos 1 % Basos 0 % Neutrophils (Absolute) 8.8 x10E3/uL 1.4- 7.0 Lymphs (Absolute) 4.4 x10E3/uL 0.7-3.1 Monocytes(Absolute) 1.0 x10E3/uL 0.1-0.9 Eos (Absolute) 0.2 x10E3/uL 0.0-0.4 Baso (Absolute) 0.0 x10E3/uL 0.0-0.2 Immature Granulocytes 0 % Immature Grans (Abs) 0.0 x10E3/uL 0.0-0. 1 Comp. Metabolic Panel (14) - 04/30/16 16 :42 Glucose, Serum 146 mg/dL 65-99 BUN 14 mg/dL 8-27 Creatinine, Serum 1.18 mg/dL 0.76-1.27 eGFR If NonAfricn Am 63 mL/min/1.73 >59 eGFR If Africn Am 73 mL/min/1.73 >59 BUN/Creatinine Ratio 12 10-22 Sodium, Serum 141 mmol/L 134-144 Potassium, Serum 4.2 mmol/L 3.5-5.2 Chloride, Serum 102 mmol/L 96-106 Carbon Dioxide, Total 21 mmol/L 18-29 Calcium, Serum 9.5 mg/dL 8.6-10.2 Protein, Total, Serum 7.5 g/dL 6.0-8.5 Albumin, Serum 4.5 g/dL 3.6-4.8 Globulin, Total 3.0 g/dL 1.5-4.5 A/G Ratio 1.5 1.1-2.5 Bilirubin, Total 0.4 mg/dL 0.0-1.2 Alkaline Phosphatase, S 138 IU/L 39-117 AST (SGOT) 16 IU/L 0-40 ALT (SGPT) 16 IU/L 0-44 Lipid Panel - 04/30/16 16:42 Cholesterol, Total 139 mg/dL 100-199 Triglycerides 94 mg/dL 0-149 HDL Cholesterol 33 mg/dL >39 VLDL Cholesterol Ishmael 19 mg/dL 5-40 LDL Cholesterol Calc 87 mg/dL 0-99 TSH - 04/30/16 16:42 TSH 1.720 uIU/mL 0.450-4.500 Prostate-Specific Ag, Serum - 04/30/16 1 6:42 Prostate Specific Ag, Serum 1.0 ng/mL 0. 0-4.0 CBC With Differential/Platelet - 7 09:51 WBC 10.3 x10E3/uL 3.4-10.8 RBC 4.64 x10E6/uL 4.14-5.80 Hemoglobin 12.1 g/dL 12.6-17.7 Hematocrit 37.5 % 37.5-51.0 MCV 81 fL 79-97 MCH 26.1 pg 26.6-33.0 MCHC 32.3 g/dL 31.5-35.7 RDW 18.1 % 12.3-15.4 Platelets 293 x10E3/uL 150-379 Neutrophils 64 % Lymphs 27 % Monocytes 7 % Eos 2 % Basos 0 % Neutrophils (Absolute) 6.6 x10E3/uL 1.4- 7.0 Lymphs (Absolute) 2.7 x10E3/uL 0.7-3.1 Monocytes(Absolute) 0.7 x10E3/uL 0.1-0.9 Eos (Absolute) 0.2 x10E3/uL 0.0-0.4 Baso (Absolute) 0.0 x10E3/uL 0.0-0.2 Immature Granulocytes 0 % Immature Grans (Abs) 0.0 x10E3/uL 0.0-0. 1 Comp. Metabolic Panel (14) - 12/10/16 09 :51 Glucose, Serum 167 mg/dL 65-99 BUN 18 mg/dL 8-27 Creatinine, Serum 1.20 mg/dL 0.76-1.27 eGFR If NonAfricn Am 62 mL/min/1.73 >59 eGFR If Africn Am 72 mL/min/1.73 >59 BUN/Creatinine Ratio 15 10-24 Sodium, Serum 138 mmol/L 134-144 Potassium, Serum 4.3 mmol/L 3.5-5.2 Chloride, Serum 99 mmol/L 96-106 Carbon Dioxide, Total 23 mmol/L 18-29 Calcium, Serum 9.0 mg/dL 8.6-10.2 Protein, Total, Serum 6.9 g/dL 6.0-8.5 Albumin, Serum 3.8 g/dL 3.6-4.8 Globulin, Total 3.1 g/dL 1.5-4.5 A/G Ratio 1.2 1.2-2.2 Bilirubin, Total 0.3 mg/dL 0.0-1.2 Alkaline Phosphatase, S 131 IU/L 39-117 AST (SGOT) 12 IU/L 0-40 ALT (SGPT) 16 IU/L 0-44 CBC - 07/14/17 13:57 WHITE BLOOD CELL [...] - 11/24/17 08:31 C-PEPTIDE 2.28 ng/mL 0.80-3.85 CMP - 03/03/18 09:53 GLUCOSE 131 mg/dL 65-99 UREA NITROGEN (BUN) 10 mg/dL 7-25 CREATININE 1.10 mg/dL 0.70-1.25 eGFR NON-AFR. KENYAN 69 mL/min/1.73m2 > OR = 60 eGFR [...] RATIO, RANDOM URINE 140 mcg/mg creat <30 CMP - 08/15/18 09:16 GLUCOSE 182 mg/dL 65-99 UREA NITROGEN (BUN) 19 mg/dL 7-25 CREATININE 1.30 mg/dL 0.70-1.25 eGFR NON-AFR. KENYAN 56 mL/min/1.73m2 > OR = 60 eGFR [...] CONSISTENT NRG Prescribed Drug 2 Hydrocodone NRG [id number] - 03/13/19 09:27 Serum or plasma urea [...] 7-25 CREATININE 1.56 mg/dL 0.70-1.18 eGFR NON-AFR. KENYAN 44 mL/min/1.73m2 > OR = 60 eGFR [...] by glucometer (mas s/volume) 116 mg/dL 70-110 Coronavirus SARS-CoV-2 SO 2018 0 13:20 Coronavirus Ab [Units/volume] in Serum Negative Negative Encounters ACCT No. Visit Date/Time Discharge Status Pt. Type Provider Facility Loc./Unit Complaint [id number] 12/11/2016 07:06:00 Document Registration [id number] 05/01/2016 10:05:00 Document Registration [id number] 10/05/2019 09:06:00 15:37:00 DIS Outpatient STAN VAZQUEZ DO [facility] PREOP EGD [id number] 07/15/2019 13:08:00 16:42:00 DIS Outpatient STAN VAZQUEZ DO [facility] ENDO FB IN THROAT [id number] 07/01/2019 20:02:00 23:15:00 DIS Emergency JOE POWERS MD [facility] ER FS CONFUSION [id number] 03/13/2019 09:07:00 23:59:59 CLS Outpatient NILESH DE LA TORRE APRN [facility] RAD FS LUNG NODULE [id number] 11/23/2018 11:04:00 23:59:59 CLS Outpatient NILESH DE LA TORRE APRN [facility] RAD SCREENING [id number] 10/09/2019 09:40:00 P EN Preadmit STNA VAZQUEZ DO [facility] ENDO DYSPAGIA/STRICTURE [id number] 08/02/2019 13:45:00 08/02/2019 23:59: 59 CLS Outpatient NILESH DE LA [facility]ORRE [facility] [id number] 2019 09:20:00 Document Registration [id number] 11/09/2018 08:40:00 Document Registration [id number] 08/15/2018 08:20:00 Document Registration [id number] 08/01/2018 09:00:00 Document Registration [id number] 03/03/2018 08:40:00 Document Registration [id number] 11/24/2017 09:00:00 Document Registration [id number] 11/11/2017 10:20:00 Document Registration [id number] 07/14/2017 10:20:00 Document Registration
[2019-10-09] MEDS ORDERED: LACTATED RINGERS 1,000 ML IV STA (08:49)
--- NOTE | 2019-10-09 08:59 | Progress Note-Pre Operative ---
Pre-Operative Progress Note H&P Reviewed The H&P was reviewed, patient examined and no changes noted. Time Seen by Provider: 08:58 Date H&P Reviewed: Oct 09, 2019 Time H&P Reviewed: 08:58 Pre-Operative Diagnosis: Dysphagia, gastritis, hx of foreign body STAN VAZQUEZ DO Oct 09, 2019 08:59
[2019-10-09] MEDS ORDERED: HURRICAINE EXT TUBE (BENZOCAINE) XX PRN (09:00)
[2019-10-09] MEDS ORDERED: MIDAZOLAM 2 MG/2 ML (VERSED) VIAL ONE (09:14)
[2019-10-09] MEDS ORDERED: PROPOFOL INJECTION 50 ML IV ONE (09:14)
--- NOTE | 2019-10-09 09:43 | Progress Note-Post Operative ---
Post-Operative Progess Note Surgeon (s)/Taxi Driver (s) Surgeon STAN VAZQUEZ DO Taxi Driver: none Pre-Operative Diagnosis Dysphagia, gastritis, hx of foreign body Post-Operative Diagnosis Gastritis Hiatal Hernia Procedure & Operative Findings Date of Procedure 10/09/19 Procedure Performed/Findings EGD with bx Anesthesia Type IV sedation by GOLF COURSE RANGER Estimated Blood Loss Estimated blood loss (mL): scant Specimens/Packing Specimens Removed antral bx body of stomach bx GE jxn bx STAN VAZQUEZ DO Oct 09, 2019 09:43
--- NOTE | 2019-10-09 09:44 | Endoscopy Discharge Instruct ---
Endo Procedure/Findings Findings 1.: Gastritis 2.: Hiatal Hernia Discharge Instructions - Activity: You might feel a little sleepy until tomorrow. This is due to the medicine you received to relax you. Until tomorrow, you should: NOT drive a car, operate machinery or power tools. NOT drink any alcoholic beverages. NOT make any important decisions or sign importortant papers. Do not return to work until tomorrow, unless otherwise instructed. Resume previous activities tomorrow. Diet: Start by taking liquids. If you tolerate liquids, advance to solid food. make an appointment for one week 1.: EGD in 1 year Notify Physician - If you experience excessive bleeding, unusual abdominal pain, fever, or chest pain, contact your doctor immediately. STAN VAZQUEZ DO Oct 09, 2019 09:44
--- NOTE | 2019-10-09 12:19 | Anesthesia-General Post-Op ---
MAC Patient Condition Mental Status/LOC: Same as Preop Cardiovascular: Satisfactory Nausea/Vomiting: Absent Respiratory: Satisfactory Pain: Controlled Complications: Absent Post Op Complications Complications None Follow Up Care/Instructions Patient Instructions None needed. Anesthesiology Discharge Order Discharge Order Patient is doing well, no complaints, stable vital signs, no apparent adverse anesthesia problems. No complications reported per nursing. JELANI RODRIGUEZ CRNA Oct 09, 2019 12:19
--- NOTE | 2019-10-09 23:31 | OPERATIVE REPORT ---
DATE OF SERVICE: 10/09/2019 PREOPERATIVE DIAGNOSES: Dysphagia, gastritis, history of a foreign body being stuck. POSTOPERATIVE DIAGNOSES: Gastritis, hiatal hernia. PROCEDURE: EGD with biopsy. SURGEON: Seven Naidu DO PAPERBACK MACHINE OPERATOR: None. ANESTHESIA: IV sedation by the DIRECTOR MORTGAGE. SPECIMEN: Biopsy from the antrum, body of stomach and GE junction. BLOOD LOSS: Scant. FLUIDS: Per anesthesia. POSTOPERATIVE CONDITION: Stable. INDICATION FOR PROCEDURE: The patient is a 69-year-old male who has a history of dysphagia and had recently had a foreign object stuck, food bolus. He had some gastritis and needed a workup. FINDINGS: The patient had some gastritis and hiatal hernia, also appeared to have a little bit of a tortuous esophagus at the base. PROCEDURE NOTE: After informed consent was obtained, the patient was brought to the endoscopy suite, placed in bed in the left lateral decubitus position. He was administered IV sedation by the DIRECTOR MORTGAGE who monitored his vitals the entire time, heart rate, blood pressure and pulse ox and the scope was inserted down the mouth through the esophagus and into the stomach, pushed towards the antrum, took a picture of the antrum, pushing the duodenum. Duodenum looked fine. Pulled back and did a biopsy of the antrum. Retroflexed the scope, saw hiatal hernia, did a biopsy of the body of stomach, pulled the scope into the GE junction, did a biopsy here, pushed the scope back in and then suctioned the air out of the stomach and then pulled the scope up, noted to have a tortuous esophagus at the base. Had a count of the left and then right at the level of the zigzag to get into the stomach, pulled the scope up the esophagus and out the mouth. The patient was recovered in endoscopy suite. Job ID: [id number] DocumentID: [id number] Dictated Date: 10/09/2019 16:09:53 Gang Head Saw Operator Date: 10/09/2019 23:30:57 Dictated By: SEVEN NAIDU DO
== END 2019-10-09 10:30 | disposition home or self-care (01) ==
LOC: ENDO 08:12
PROVIDERS: ATTEND Surgery
DX: K29.70 Gastritis, unspecified, without bleeding (principal); K22.70 Barrett's esophagus without dysplasia; K20.9 Esophagitis, unspecified; K22.8 Other specified diseases of esophagus; K44.9 Diaphragmatic hernia without obstruction or gangrene; I25.10 Atherosclerotic heart disease of native coronary artery without angina pectoris; E11.9 Type 2 diabetes mellitus without complications; I51.9 Heart disease, unspecified; Z95.1 Presence of aortocoronary bypass graft; Z86.73 Personal history of transient ischemic attack (TIA), and cerebral infarction without residual deficits; Z88.8 Allergy status to other drugs, medicaments and biological substances; Z87.891 Personal history of nicotine dependence; Z79.899 Other long term (current) drug therapy; Z80.9 Family history of malignant neoplasm, unspecified
CPT/HCPCS: 82962; 88305

== ENCOUNTER → 2020-02-20 | Outpatient (CLI) | payer MEDICARE, OTHER ==
[~2020-02-20] MED LIST changes: +HYDR-3817 PO; -HYDR-4342 PO; -PANT40TA3 PO; +PANT40TA52 PO
[2020-02-20 11:54] LABS: CALCIUM 8.8 MG/DL (8.5-10.1); CREATININE SERUM 1.88 MG/DL (0.60-1.30); POTASSIUM 5.1 MMOL/L (3.6-5.0)
--- NOTE | 2020-02-20 12:23 | Diagnostic Imaging Report ---
PROCEDURE: US carotid duplex, bilateral. TECHNIQUE: Multiple real-time grayscale images were obtained over the carotid arteries in various projections, bilaterally. Additional spectral analysis and color Doppler duplex images were also obtained. INDICATION: Dizziness and vertigo. There is moderate plaque in the right common carotid and internal carotid artery. Velocities in the right internal carotid artery are elevated reaching 159 cm/s. There appears to be a stent extending from the left common carotid artery into the left internal carotid artery. Velocities are elevated in the left internal carotid artery reaching 210 cm/s. Both vertebral arteries show antegrade flow. IMPRESSION: Moderate right-sided carotid plaque. Velocity measurements in both internal carotid arteries are consistent with 50-69% diameter stenosis. Patient does have a left-sided carotid stent which appears to be patent. Parameters based on the consensus panel Leggett-[employer] and Doppler ultrasound criteria published March 2003, Radiology, Volume 229. DOPPLER (peak systolic velocity M/S Right Left CCA 1.13 0.90 ICA Proximal 1.55 1.90 ICA Mid 1.59 1.98 ICA Distal 1.12 2.10 RATIO 1.41 2.33 ECA 2.18 2.01 VERT 1.09 1.05 Dictated by: Dictated on workstation # [id number]
== END ==
LOC: RAD 12:15
PROVIDERS: ATTEND Internal Medicine Cardiovascular Disease
DX: I65.21 Occlusion and stenosis of right carotid artery (principal); Z98.62 Peripheral vascular angioplasty status
CPT/HCPCS: 36415; 80048; 93880

== ENCOUNTER 2020-05-13 05:52 | Outpatient (RCR) | payer MEDICARE, OTHER ==
[~2020-05-13] VITALS: Ht 167.6 cm; Wt 67.0 kg
[2020-05-13] MEDS ORDERED: PANT40TA52 PO (11:16)
[2020-05-13] MEDS ORDERED: ZOLP5TAB7 PO (11:16)
[2020-05-13] MEDS ORDERED: SUCR1TAB PO (11:19)
[2020-05-13] MEDS ORDERED: CLOP75TA28 PO (11:19)
[2020-05-13] MEDS ORDERED: GLUC1AUT2 SQ (11:19)
== END 2020-05-13 15:44 | disposition home or self-care (01) ==
LOC: PREOP 05:52
PROVIDERS: ATTEND Surgery
DX: Z01.818 Encounter for other preprocedural examination (principal)

== ENCOUNTER 2020-05-20 08:07 | Day surgery (SDC) | payer MEDICARE, OTHER ==
[~2020-05-20] VITALS: Ht 167.6 cm; Wt 67.0 kg
[~2020-05-20 08:07] MED LIST changes: +GLUC1AUT2 SQ; +SUCR1TAB PO; +ZOLP5TAB7 PO
[2020-05-20] MEDS ORDERED: LACTATED RINGERS 1,000 ML IV ONE (08:11)
[2020-05-20 08:12] VITALS: BP 158/61
[2020-05-20] MEDS ORDERED: proPOfol 200 MG/20 ML (DIPRIVAN) VIAL IV ONE (08:32)
[2020-05-20] MEDS ORDERED: MIDAZOLAM 2 MG/2 ML (VERSED) VIAL ONE (08:33)
--- NOTE | 2020-05-20 08:33 | Progress Note-Pre Operative ---
Pre-Operative Progress Note H&P Reviewed The H&P was reviewed, patient examined and no changes noted. Time Seen by Provider: 08:29 Date H&P Reviewed: May 20, 2020 Time H&P Reviewed: 08:30 Pre-Operative Diagnosis: Nieves's Esophagus STAN VAZQUEZ DO May 20, 2020 08:33
[2020-05-20 08:45] VITALS: BP 142/69
[2020-05-20] MEDS ORDERED: HURRICAINE EXT TUBE (BENZOCAINE) XX PRN (08:45)
[2020-05-20 08:50] VITALS: BP 108/52
--- NOTE | 2020-05-20 08:52 | Progress Note-Post Operative ---
Post-Operative Progess Note Surgeon (s)/Hat Measurer (s) Surgeon STAN VAZQUEZ DO Hat Measurer: none Pre-Operative Diagnosis Nieves's Esophagus Post-Operative Diagnosis Gastritis Esophagitis Procedure & Operative Findings Date of Procedure 05/20/20 Procedure Performed/Findings EGD with bx Anesthesia Type IV sedation by WINCH DERRICK OPERATOR Estimated Blood Loss Estimated blood loss (mL): scant Specimens/Packing Specimens Removed antral bx GE jxn x 3 STAN VAZQUEZ DO May 20, 2020 08:52
--- NOTE | 2020-05-20 08:53 | Endoscopy Discharge Instruct ---
Endo Procedure/Findings Findings 1.: Gastritis 2.: Nieves's Esophagus Discharge Instructions - Activity: You might feel a little sleepy until tomorrow. This is due to the medicine you received to relax you. Until tomorrow, you should: NOT drive a car, operate machinery or power tools. NOT drink any alcoholic beverages. NOT make any important decisions or sign importortant papers. Do not return to work until tomorrow, unless otherwise instructed. Resume previous activities tomorrow. Diet: Start by taking liquids. If you tolerate liquids, advance to solid food. 1.: EGD in 1 year Notify Physician - If you experience excessive bleeding, unusual abdominal pain, fever, or chest pain, contact your doctor immediately. STAN VAZQUEZ DO May 20, 2020 08:53
[2020-05-20 08:55] VITALS: BP 104/51
[2020-05-20] MEDS ORDERED: LACTATED RINGERS 1,000 ML IV SCH (09:00)
[2020-05-20 09:05] VITALS: BP 104/51
[2020-05-20 09:35] VITALS: BP 115/67
--- NOTE | 2020-05-20 13:01 | Anesthesia-General Post-Op ---
MAC Patient Condition Mental Status/LOC: Same as Preop Cardiovascular: Satisfactory Nausea/Vomiting: Absent Respiratory: Satisfactory Pain: Controlled Complications: Absent Post Op Complications Complications None Follow Up Care/Instructions Patient Instructions None needed. Anesthesiology Discharge Order Discharge Order Patient is doing well, no complaints, stable vital signs, no apparent adverse anesthesia problems. No complications reported per nursing. ZAK GARNICA CRNA May 20, 2020 13:00
--- NOTE | 2020-05-20 13:23 | OPERATIVE REPORT ---
DATE OF SERVICE: 05/20/2020 PREOPERATIVE DIAGNOSIS: Nieves's esophagus. POSTOPERATIVE DIAGNOSES: Gastritis and esophagitis. PROCEDURE PERFORMED: EGD with biopsy. SURGEON: Seven Naidu DO. LABORER GOLF COURSE: None. ANESTHESIA: IV sedation by the SAFE EXPERT. SPECIMEN: Biopsy of the antrum and three biopsies from the GE junction at the 2 o'clock, 6 o'clock, and 10 o'clock position. BLOOD LOSS: Scant. FLUIDS: Per anesthesia. POSTOPERATIVE CONDITION: Stable. INDICATION FOR PROCEDURE: The patient is a 70-year-old male with a history of Nieves's esophagus and needs an EGD to monitor the Nieves esophagus. FINDINGS: The patient had some mild gastritis, did look like he had some changes right at the GE junction. Biopsies were performed. PROCEDURE NOTE: After informed consent was obtained, the patient was brought to the endoscopy suite and placed in the bed in a left lateral decubitus position. He was administered IV sedation by the SAFE EXPERT, who then monitored his vitals the entire time, heart rate, blood pressure and pulse ox and the scope was inserted down the mouth through the esophagus into the stomach. Upon entering the stomach, I noted some mild gastritis, pushed into the duodenum. Duodenum looked fine. Pulled back, did a biopsy of the antrum. Retroflexed the scope, did not see a hiatal hernia, did not really see a lot of other gastritis, pushed into the esophagus and noted some changes here, took a picture and then did biopsies at the 2 o'clock, 6 o'clock, and 10 o'clock position, a little bit of bleeding. Scope was then reinserted into the stomach, suctioned all the air out and then pulled the scope up the esophagus and out the mouth. The patient tolerated the procedure and he was recovered in the endoscopy suite. Job ID: [id number] DocumentID: [id number] Dictated Date: 05/20/2020 08:59:46 [employer] Date: 05/20/2020 13:22:51 Dictated By: SEVEN NAIDU DO
== END 2020-05-20 09:35 | disposition home or self-care (01) ==
LOC: ENDO 08:07
PROVIDERS: ATTEND Surgery
DX: K29.50 Unspecified chronic gastritis without bleeding (principal); K22.70 Barrett's esophagus without dysplasia; K21.00 Gastro-esophageal reflux disease with esophagitis, without bleeding; I10 Essential (primary) hypertension; I25.119 Atherosclerotic heart disease of native coronary artery with unspecified angina pectoris; E11.9 Type 2 diabetes mellitus without complications; E78.5 Hyperlipidemia, unspecified; J44.9 Chronic obstructive pulmonary disease, unspecified; Z79.51 Long term (current) use of inhaled steroids; Z79.4 Long term (current) use of insulin; Z91.041 Radiographic dye allergy status; Z88.5 Allergy status to narcotic agent; Z86.73 Personal history of transient ischemic attack (TIA), and cerebral infarction without residual deficits; Z80.9 Family history of malignant neoplasm, unspecified
CPT/HCPCS: 82962; 88305

== ENCOUNTER → 2020-06-27 | Outpatient (CLI) | payer MEDICARE, OTHER ==
[~2020-06-27] MED LIST changes: -LISI10TA2 PO; +LISI10TA25 PO
--- NOTE | 2020-06-27 17:23 | Diagnostic Imaging Report ---
PROCEDURE: US bilateral lower extremity arterial. TECHNIQUE: Multiple real-time grayscale images are obtained through both lower extremity arterial systems with color Doppler imaging and color Doppler spectral analysis. DATE: June 24, 2020. INDICATION: 70-year-old male, peripheral vascular disease. No additional history provided. COMPARISON: None. FINDINGS: Peak systolic velocity in the right common femoral artery measures 151 cm/s with lack of normal triphasic waveform. The imaged portions of the right deep femoral artery are occluded. The cowl[place] right superficial femoral artery is occluded. There is blood flow demonstrated on the right popliteal artery with loss of normal triphasic waveforms. Right popliteal artery demonstrates a peak systolic velocity of 94 cm/s. There is a right femoral popliteal bypass graft with peak systolic velocity in its proximal aspect at 229 cm/s, 77 cm/s in its mid segment and 79 cm/s distally. Peak systolic velocity in the right distal posterior tibial artery measures 22 cm/s. Peak systolic velocity in the right dorsalis pedis artery measures 26 cm/s. The right anterior tibial artery is patent with peak systolic velocity of 103 cm/s. Peak systolic velocity in the left common femoral artery measures 162 cm/s with lack of normal triphasic waveform. The left deep femoral artery is patent in its imaged portions with peak systolic velocity of 222 cm/s. The left proximal superficial femoral artery demonstrates a peak systolic velocity of near 100 cm/s. There is occlusion of the mid segment of the left superficial femoral artery and distal aspect of the cowlitz left superficial femoral artery. Peak systolic velocity in the left popliteal artery measures 120 cm/s. There is a left femoral popliteal bypass graft with peak systolic velocity in its proximal aspect of 100 cm/s, 59 cm/s in its mid segment and 98 cm/s distally. Peak systolic velocity in the left distal posterior tibial artery measures 82 cm/s. Peak systolic velocity in the left dorsalis pedis artery measures 18 cm/s. Peak systolic velocity in the left distal anterior tibial artery is measured at 24 cm/s. IMPRESSION: 1. Patent bilateral femoral popliteal bypass grafts with somewhat elevated velocity in the proximal aspect of the right bypass graft at 229 cm/s. 2. Occlusion of the entire length of the cowlitz right superficial femoral artery and imaged portions of the right deep femoral artery. 3. Occluded portions of the mid and distal aspect of the left cowlitz superficial femoral artery. 4. The additional imaged lower extremity bilateral arterial vasculature is patent. Dictated by: Dictated on workstation # [id number]
== END ==
LOC: RAD 12:45
PROVIDERS: ATTEND Nurse Practitioner
DX: I73.9 Peripheral vascular disease, unspecified (principal); I63.9 Cerebral infarction, unspecified
CPT/HCPCS: 93925

== ENCOUNTER → 2020-08-19 | Outpatient (CLI) | payer MEDICARE, OTHER ==
--- NOTE | 2020-08-19 10:47 | Diagnostic Imaging Report ---
PROCEDURE: US Renal Bilateral. TECHNIQUE: Multiple real-time grayscale images were obtained over the kidneys in various projections bilaterally. INDICATION: Chronic kidney disease. Right kidney is small measuring 7.6 x 3.6 x 4.4 cm. Left kidney measures 9.8 x 5.1 x 5.3 cm. The cortical thickness and echogenicity appears normal. There is no hydronephrosis on either side. There are bilateral renal cysts. Largest cyst on the right is in the lower pole approximately 2.3 x 1.9 cm. Cyst in the lower pole of the left kidney measures 2.4 x 2.7 cm. Bladder demonstrates bilateral ureteral jets. IMPRESSION: 1. Small right kidney. There are bilateral renal cysts. No calculi or hydronephrosis is detected. Dictated by: Dictated on workstation # [id number]
== END ==
LOC: RAD FS 09:51
PROVIDERS: ATTEND Internal Medicine Nephrology
DX: I12.9 Hypertensive chronic kidney disease with stage 1 through stage 4 chronic kidney disease, or unspecified chronic kidney disease (principal); N18.32 Chronic kidney disease, stage 3b; I25.10 Atherosclerotic heart disease of native coronary artery without angina pectoris; I73.9 Peripheral vascular disease, unspecified; N28.1 Cyst of kidney, acquired; N27.0 Small kidney, unilateral
CPT/HCPCS: 76770

== ENCOUNTER → 2020-09-09 | Outpatient (CLI) | payer MEDICARE, OTHER ==
[2020-09-09 10:48] LABS: BASOPHILS % (AUTO) 0 % (0-10); EOSINOPHILS # (AUTO) 0.2 10^3/uL (0.0-0.3); EOSINOPHILS % (AUTO) 2 % (0-10); HEMATOCRIT 36 % (40-54); HEMOGLOBIN 11.8 G/DL (13.3-17.7); LYMPHOCYTES # (AUTO) 2.6 X 10^3 (1.0-4.0); LYMPHOCYTES % (AUTO) 22 % (12-44); MEAN CORPUSCULAR HEMOGLOBIN 29 PG (25-34); MEAN CORPUSCULAR HGB CONC 33 G/DL (32-36); MEAN CORPUSCULAR VOLUME 88 FL (80-99); MEAN PLATELET VOLUME 10.4 FL (7.4-10.4); MONOCYTES # (AUTO) 0.7 X 10^3 (0.0-1.0); MONOCYTES % (AUTO) 6 % (0-12); NEUTROPHILS # (AUTO) 8.4 X 10^3 (1.8-7.8); NEUTROPHILS % (AUTO) 70 % (42-75); PLATELET COUNT 231 10^3/uL (130-400)
[2020-09-09 11:12] LABS: POTASSIUM 4.5 MMOL/L (3.6-5.0)
[2020-09-09 11:13] LABS: ALBUMIN 3.8 GM/DL (3.2-4.5); CALCIUM 8.8 MG/DL (8.5-10.1); CREATININE SERUM 1.74 MG/DL (0.60-1.30)
[2020-09-09 15:37] LABS: PHOSPHORUS 2.9 MG/DL (2.3-4.7)
[2020-09-09 15:40] LABS: URIC ACID 6.5 MG/DL (2.6-7.2)
== END ==
LOC: LAB FS 09:43
PROVIDERS: ATTEND Internal Medicine Nephrology
DX: I12.9 Hypertensive chronic kidney disease with stage 1 through stage 4 chronic kidney disease, or unspecified chronic kidney disease (principal); N18.32 Chronic kidney disease, stage 3b; I25.10 Atherosclerotic heart disease of native coronary artery without angina pectoris; I73.9 Peripheral vascular disease, unspecified
CPT/HCPCS: 36415; 80069; 82306; 82570; 83970; 84156; 84550; 85025

== ENCOUNTER → 2020-10-16 | Outpatient (CLI) | payer MEDICARE, OTHER ==
--- NOTE | 2020-10-16 15:48 | Diagnostic Imaging Report ---
PROCEDURE: MRI lumbar spine. TECHNIQUE: Multiplanar, multisequence MRI of the lumbar spine was performed without contrast. INDICATION: Low back pain. No known discrete injury. FINDINGS: The findings suggest at least partial sacralization of the L5 segment. There is nonedematous L2 superior endplate concavity contiguous with the disc, consistent with a remote Schmorl's node. At L4-L5, there is disc desiccation and disc bulge. There is ligamenta flava thickening and facet arthrosis. The findings result in a moderate severity of central canal stenosis. In addition, there is moderate left and severe right neuroforaminal narrowing. At L3-L4, there is mild canal stenosis with no substantial foraminal narrowing at the remaining levels. No significant stenosis. IMPRESSION: There is at least partial sacralization of the L5 segment. There is L4-L5 degenerative disc, endplate, and facet disease with resultant canal and left greater than right foraminal stenosis as detailed above. Normal alignment. No acute appearing bony abnormality. Elsewhere, more mild degenerative changes and mild stenoses are detailed above. Dictated by: Dictated on workstation # [id number]
== END ==
LOC: RAD 13:49
PROVIDERS: ATTEND Nurse Practitioner Family
DX: M51.26 Other intervertebral disc displacement, lumbar region (principal); M51.36 Other intervertebral disc degeneration, lumbar region; M48.061 Spinal stenosis, lumbar region without neurogenic claudication
CPT/HCPCS: 72148

== ENCOUNTER → 2020-12-12 | Outpatient (CLI) | payer MEDICARE, OTHER ==
--- NOTE | 2020-12-12 13:36 | Diagnostic Imaging Report ---
INDICATION: Spinal stenosis, claudication. COMPARISON: MRI dated 10/16/2020. TECHNIQUE: Four radiographs of the lumbar spine dated 12/12/2020. FINDINGS: Partial sacralization of the L5 vertebral body is again noted. Mild apex left curvature of the visualized thoracolumbar spine. No significant anterolisthesis or retrolisthesis. No abnormal translational motion with flexion and extension. Mild scattered endplate degenerative changes are present. No evidence of a recent vertebral body compression deformity. Mild disc space height loss at L4/L5 and L5/S1. No severe disc space height loss. Small multilevel anterior osteophyte formation. Scattered facet joint degenerative changes, greatest within the lower lumbar spine. Advanced vascular calcifications. The sacroiliac joints are intact. No acute fracture. IMPRESSION: Mild apex left curvature of the thoracolumbar spine with mild degenerative changes without acute osseous abnormality. No abnormal translational motion with flexion and extension. Advanced background vascular calcifications. Dictated by: Dictated on workstation # [id number]
--- NOTE | 2020-12-12 13:45 | Diagnostic Imaging Report ---
INDICATION: Shortness of breath COMPARISON: 07/15/2019 TECHNIQUE: 3 radiographs of the chest dated 12/12/2020. FINDINGS: Postsurgical changes of a CABG are again identified. No significant pulmonary vascular congestion. The lungs are hyperinflated with flattening of the diaphragm. The lungs however appear clear of focal pulmonary opacity. No pleural effusion. No pneumothorax. Scattered osseous degenerative changes. No acute osseous abnormality. IMPRESSION: Background chronic obstructive pulmonary disease without superimposed acute cardiopulmonary abnormality. Dictated by: Dictated on workstation # [id number]
== END ==
LOC: RAD FS 12:50
PROVIDERS: ATTEND Nurse Practitioner
DX: M47.816 Spondylosis without myelopathy or radiculopathy, lumbar region (principal); M48.062 Spinal stenosis, lumbar region with neurogenic claudication; J44.9 Chronic obstructive pulmonary disease, unspecified
CPT/HCPCS: 71046; 72110

== ENCOUNTER → 2021-03-17 | Outpatient (CLI) | payer MEDICARE, OTHER ==
--- NOTE | 2021-03-17 14:17 | Diagnostic Imaging Report ---
PROCEDURE: CT chest without contrast. TECHNIQUE: Multiple contiguous axial images were obtained through the chest without the use of intravenous contrast. Auto Exposure Controls were utilized during the CT exam to meet ALARA standards for radiation dose reduction. INDICATION: Followup previously demonstrated endobronchial nodules. CORRELATION: CT chest 07/15/2019. FINDINGS: No significant mediastinal lymph nodes on noncontrast imaging. The visualized portions of the thyroid gland are unremarkable. Prior sternotomy change. Heart size is borderline enlarged. Coronary artery and cardiac valvular calcification is present. There is moderate calcification of the thoracic aorta; otherwise, normal in contour. Small hiatal hernia. The previously noted areas endobronchial nodularity have essentially resolved. Very minimal contour deformity about the posterior right main bronchus is noted. Small area of nodularity along the minor fissure plane right mid lung field is likely of no significance. No pulmonary consolidating infiltrate. Trace pleural effusions layering dependently. Calcification about the renal pelvis are likely vascular. Probable incompletely characterized renal cysts. Asymmetrically smaller right kidney compared to the left kidney. Dense calcification of the visualized abdominal aorta. Mildly advanced degenerative changes with bridging osteophytes of the thoracic spine. IMPRESSION: 1. Resolution of the previously noted areas of endobronchial nodularity. Likely minimal additional secretion in the right main bronchus. No followup required. 2. No concerning pulmonary mass or acute abnormality in the chest. 3. It is noted there has been previous CT lung cancer screening imaging obtained. Clinical correlation as to whether the patient still fulfills criteria for screening assessment. Dictated by: Dictated on workstation # [id number]
== END ==
LOC: RAD FS 13:09
PROVIDERS: ATTEND Nurse Practitioner Family
DX: R91.8 Other nonspecific abnormal finding of lung field (principal)
CPT/HCPCS: 71250

== ENCOUNTER 2021-07-07 05:42 | Outpatient (CLI) | payer MEDICARE, OTHER ==
[~2021-07-07] VITALS: Ht 167 cm; Wt 69.0 kg
[2021-07-09] MEDS ORDERED: CLOP75TA28 PO (08:56)
[2021-07-09] MEDS ORDERED: INSU100C3 SQ (08:56)
[2021-07-09] MEDS ORDERED: CALC-250 PO (09:04)
== END 2021-07-09 08:59 | disposition home or self-care (01) ==
LOC: PREOP 05:42
PROVIDERS: ATTEND Surgery
DX: Z01.818 Encounter for other preprocedural examination (principal)

== ENCOUNTER 2021-09-25 03:57 | Emergency (ER) | payer MEDICARE, OTHER ==
[~2021-09-25] VITALS: Ht 167.7 cm; Wt 68.0 kg
[2021-09-25] MEDS ORDERED: NS IV 500 ML 500 ML IV ONE (04:15)
[2021-09-25] MEDS ORDERED: inSUlin (REGULAR) HUMAN 1 UNIT/0.01 ML (CHARGE PER UNIT) IV ONE ×2 (04:15→06:45)
--- NOTE | 2021-09-25 04:18 | ED General ---
General Chief Complaint: Glucose Problems Stated Complaint: HIGH BLOOD SUGAR Source of Information: Patient Exam Limitations: No Limitations History of Present Illness Date Seen by Provider: September 25, 2021 Time Seen by Provider: 04:01 Initial Comments Patient presents to the ER by private conveyance with his significant other and chief complaint is had low confusion today and blood sugar over 500 tonight. For the past couple days he has had blood sugars over 400. 10:00 last night, 6 hours ago they changed out the insulin on his pump as well as change the site and it has not improved his blood sugar. 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 Rios with his history of CABG. He follows Dr. Omer for primary care. He says when he was initially diagnosed with diabetes he had a high blood sugar over thousand but does not recall being in diabetic ketoacidosis in the past. He has had dry mouth and frequent urination but he does not think is any more than usual. He says he drinks a lot of diet Pepsi every day. He is not having chest pain, cough, fevers, chills, nausea, vomiting, diarrhea, dysuria or rash. He denies a history of heart failure. He is not on diuretics outside of HCTZ for blood pressure. He has a history of cerebellar stroke. Allergies and Home Medications Allergies Coded Allergies: codeine (Verified Allergy, Unknown, 07/09/21) iodine (Verified Allergy, Unknown, 07/01/19) Patient Home Medication List Home Medication List Reviewed: Yes Albuterol Sulfate (Proair Hfa) 1 Puff Puff, 2 PUFF IH Q6H PRN for WHEEZING, (Reported) Entered as Reported by: MONICA CORTEZ on 10/04/19 1051 Atorvastatin Calcium (Atorvastatin Calcium) 80 Mg Tablet, 80 MG PO HS, (Reported) Entered as Reported by: LYNDA REESE on 07/01/192254 Cholecalciferol (Vitamin D3) (Vitamin D3) 125 Mcg Tablet, 125 MCG PO WEEK, (Reported) Entered as Reported by: MONICA CORTEZ on 07/09/21 0904 Citalopram Hydrobromide (Citalopram HBr) 20 Mg Tablet, 20 MG PO DAILY, (Reported) Entered as Reported by: LYNDA REESE on 07/01/19 2255 Clopidogrel Bisulfate (Clopidogrel) 75 Mg Tablet, 75 MG PO DAILY, (Reported) Entered as Reported by: MONICA CORTEZ on 07/09/21 0856 Fluticasone Propionate (Flonase Allergy Relief) 9.9 Ml [place].susp, 1 SPRAY NSEACH DAILY, (Reported) Entered as Reported by: MONICA CORTEZ on 10/04/19 1051 Insulin Aspart (Novolog) 300 Units/3 Ml Cartridge, 0-30 UNITS SQ AC, (Reported) Entered as Reported by: MONICA CORTEZ on 07/09/21 0856 Lisinopril (Lisinopril) 10 Mg Tablet, 10 MG PO DAILY, (Reported) Entered as Reported by: LYNDA REESE on 07/01/195 Zolpidem Tartrate (Zolpidem Tartrate) 5 Mg Tablet, 5 MG PO HS, (Reported) Entered as Reported by: BRIAN COPELAND on 05/13/20 1116 Review of Systems Review of Systems Constitutional: No chills, No diaphoresis EENTM: No ear discharge, No ear pain Respiratory: No cough, No short of breath Cardiovascular: No chest pain, No palpitations Gastrointestinal: No abdominal pain, No nausea, No vomiting Genitourinary: No discharge, No dysuria Musculoskeletal: No back pain, No joint pain Skin: No change in color, No dryness All Other Systems Reviewed Negative Unless Noted: Yes Past Ynwvbfi-[id number]-Wvtbpx Hx Patient Social History Tobacco Use?: No Use of E-Cig and/or Vaping dev: No Immunizations Up To Date First/Initial COVID19 Vaccinat: YES Second COVID19 Vaccination Martin: YES Seasonal Allergies Seasonal Allergies: No Past Medical History Surgeries: Yes (bilat fem-pop) Cardiac, CABG, Coronary Stent Respiratory: No Currently Using CPAP: No Currently Using BIPAP: No Cardiac: Yes (cabg) Coronary Artery Disease, Heart Attack, High Cholesterol, Hypertension Neurological: Yes TIA Genitourinary: Yes Renal Failure Gastrointestinal: Yes (hx of dysphageal stricture, ) Nieves's Esophagus Musculoskeletal: No Endocrine: Yes Diabetes, Insulin dep HEENT: No Cancer: No Psychosocial: No Integumentary: No Blood Disorders: No Family Medical History Cancer, CAD Over 55 Years Old, Diabetes, Hypertension Physical Exam Vital Signs Vital Signs - First Documented 09/25/21 04:00 Temp 36.9 Pulse 89 Resp 22 B/P (MAP) 169/74 (105) Pulse Ox 97 O2 Delivery Room Air Capillary Refill : Height, Weight, BMI Height: '" Weight: lbs. oz. kg; 24.74 BMI Method: General Appearance: No Apparent Distress, WD/WN Eyes: Bilateral Eye Normal Inspection, Bilateral Eye PERRL, Bilateral Eye EOMI HEENT: PERRL/EOMI, TMs Normal; No Moist Mucous Membranes Neck: Full Range of Motion, Normal Inspection, Non Tender Respiratory: Lungs Clear, Normal Breath Sounds, No Accessory Muscle Use, No Respiratory Distress Cardiovascular: Regular Rate, Rhythm, No Edema, Normal Peripheral Pulses Gastrointestinal: Normal Bowel Sounds, No Organomegaly, Non Tender, Soft, Other (No erythema, induration or edema around the abdomen or the site of insertion of the insulin pump.) Extremity: Normal Capillary Refill, Normal Inspection, No Pedal Edema Neurologic/Psychiatric: Alert, Oriented x3, No Motor/Sensory Deficits Skin: Normal Color, Warm/Dry Progress/Results/Core Measures Suspected Sepsis SIRS Temperature: Pulse: Respiratory Rate: Laboratory Tests 09/25/21 04:25: White Blood Count 11.3H Blood Pressure / Mean: Laboratory Tests 09/25/21 04:25: Creatinine 1.75H, INR Comment 1.0, Platelet Count 200, Total Bilirubin 0.2 Results/Orders Lab Results Laboratory Tests Test 09/25/21 04:08 09/25/21 04:25 09/25/21 05:45 09/25/21 06:05 Range/Units Glucometer 532 *H 307 H 70-110 MG/DL White Blood Count 11.3 H 4.3-11.0 10^3/uL Red Blood Count 3.88 L 4.30-5.52 10^6/uL Hemoglobin 11.1 L 13.3-17.7 g/dL Hematocrit 34 L 40-54 % Mean Corpuscular Volume 87 80-99 fL Mean Corpuscular Hemoglobin 29 25-34 pg Mean Corpuscular Hemoglobin Concent 33 32-36 g/dL Red Cell Distribution Width 13.5 10.0-14.5 % Platelet Count 200 130-400 10^3/uL Mean Platelet Volume 10.6 9.0-12.2 fL Immature Granulocyte % (Auto) 0 % Neutrophils (%) (Auto) 63 42-75 % Lymphocytes (%) (Auto) 25 12-44 % Monocytes (%) (Auto) 8 0-12 % Eosinophils (%) (Auto) 3 0-10 % Basophils (%) (Auto) 0 0-10 % Neutrophils # (Auto) 7.2 1.8-7.8 10^3/uL Lymphocytes # (Auto) 2.9 1.0-4.0 10^3/uL Monocytes # (Auto) 0.9 0.0-1.0 10^3/uL Eosinophils # (Auto) 0.4 H 0.0-0.3 10^3/uL Basophils # (Auto) 0.0 0.0-0.1 10^3/uL Immature Granulocyte # (Auto) 0.0 0.0-0.1 10^3/uL Prothrombin Time 13.0 12.2-14.7 SEC INR Comment 1.0 0.8-1.4 Sodium Level 130 L 135-145 MMOL/L Potassium Level 4.7 3.6-5.0 MMOL/L Chloride Level 97 L 98-107 MMOL/L Carbon Dioxide Level 22 21-32 MMOL/L Anion Gap 11 5-14 MMOL/L Blood Urea Nitrogen 31 H 7-18 MG/DL Creatinine 1.75 H 0.60-1.30 MG/DL Estimat Glomerular Filtration Rate 41 BUN/Creatinine Ratio 18 Glucose Level 526 *H 70-105 MG/DL Calcium Level 8.6 8.5-10.1 MG/DL Corrected Calcium 8.9 8.5-10.1 MG/DL Magnesium Level 1.7 1.6-2.4 MG/DL Total Bilirubin 0.2 0.1-1.0 MG/DL Aspartate Amino Transf (AST/SGOT) 10 5-34 U/L Alanine Aminotransferase (ALT/SGPT) 15 0-55 U/L Alkaline Phosphatase 120 40-136 U/L C-Reactive Protein 0.38 <0.50 MG/DL Total Protein 6.3 L 6.4-8.2 GM/DL Albumin 3.6 3.2-4.5 GM/DL Urine Color YELLOW Urine Clarity CLEAR Urine pH 6.0 5-9 Urine Specific [place] 1.015 L 1.016-1.022 Urine Protein 1+ H NEGATIVE Urine Glucose (UA) 3+ H NEGATIVE Urine Ketones NEGATIVE NEGATIVE Urine Nitrite NEGATIVE NEGATIVE Urine Bilirubin NEGATIVE NEGATIVE Urine Urobilinogen 0.2 < = 1.0 MG/DL Urine Leukocyte Esterase NEGATIVE NEGATIVE Urine RBC (Auto) TRACE-I H NEGATIVE Urine RBC 0-2 /HPF Urine WBC RARE /HPF Urine Squamous Epithelial Cells RARE /HPF Urine Crystals NONE /LPF Urine Bacteria NEGATIVE /HPF Urine Casts NONE /LPF Urine Mucus NEGATIVE /LPF Urine Culture Indicated NO My Orders Orders - DAVIS MARQUEZ Accucheck Stat ONCE (09/25/21 04:03) Ed Iv/Invasive Line Start (09/25/21 04:03) Ns Iv 500 Ml (Sodium Chloride 0.9%) (09/25/21 04:15) Insulin (Regular) Human (Novolin R (Per (09/25/21 04:15) Chest 1 View Ap/Pa Only (09/25/21 04:18) Cbc With Automated Diff (09/25/21 04:48) Beta Hydroxybutyrate (09/25/21 04:48) Comprehensive Metabolic Panel (09/25/21 04:48) Crp Fs (09/25/21 04:48) Magnesium (09/25/21 04:48) Protime With Inr (09/25/21 04:48) Ua Culture If Indicated (09/25/21 04:48) Ed Iv/Invasive Line Start (09/25/21 05:16) Ns Iv 1000 Ml (Sodium Chloride 0.9%) (09/25/21 05:30) Medications Given in ED Current Medications Medications Dose Ordered Sig/Nacho Route Start Time Stop Time Status Last Admin Dose Admin Insulin Human Regular 5 unit ONCE ONCE IV 09/25/21 04:15 09/25/21 04:16 DC 09/25/21 04:36 5 UNIT Sodium Chloride 500 ml @ 0 mls/hr Q0M ONCE IV 09/25/21 04:15 09/25/21 04:16 DC 09/25/21 04:36 999 MLS/HR Vital Signs/I&O 09/25/21 09/25/21 09/25/21 09/25/21 04:00 04:15 04:30 04:45 Temp 36.9 Pulse 89 88 89 89 Resp B/P (MAP) 169/74 (105) 166/53 142/26 154/52 Pulse Ox 97 95 97 95 O2 Delivery Room Air Room Air 09/25/21 09/25/21 09/25/21 09/25/21 05:00 05:15 05:30 05:45 Pulse 87 82 79 79 Resp 23 23 22 22 B/P (MAP) 156/55 156/55 163/48 149/37 Pulse Ox 95 95 95 97 O2 Delivery Room Air Room Air 09/25/21 09/25/21 06:00 06:15 Pulse 78 78 Resp 20 20 B/P (MAP) 134/58 177/60 Pulse Ox 95 96 O2 Delivery Room Air Room Air Capillary Refill : Progress Note #1: Time: 04:17 Progress Note HHS, DKA, underlying infection, pump malfunction are all in the differential. We are going to collect some urine and labs as well as a chest x-ray and we will start with a half a liter of fluids until we see his electrolytes. 5 units of regular insulin IV. A septic vital signs without fever and heart rate in the upper 80s. Progress Note #2: Time: 06:24 Progress Note Patient is resting comfortably. His sodium is a little on the low side but after 1500 cc of normal saline that should correct. I suspect his ten cans of diet Pepsi a day in addition to his inadequate control of blood sugar and hydrochlorothiazide may be contributing to hyponatremia. We have encouraged him to hold his hydrochlorothiazide until he sees his doctor. He has an appointment later today. We have also encouraged him to reduce the amount of diet Pepsi and caffeinated drinks he takes in. We will give him 5 mg amlodipine x1 today for his blood pressure since he is holding his lisinopril/hydrochlorothiazide combo medication. When this provider reviewed the history the glucometer was only registering highs of 300 and average in the upper 200s which is not in keeping with what our glucometer or his 's glucometer at home was reading. She says she has new sensors and we have encouraged the patient's to change the sensor out. Diagnostic Imaging Diagonstic Imaging: Xray Plain Films/CT/US/NM/MRI: chest Comments No acute cardiopulmonary process on 1 view chest x-ray. [facility]. [place], [place] NAME: JCARLOS CADE [facility] REC#: [id number] PT STATUS: REG ER : 1950 PHYSICIAN: DAVIS MARQUEZ MD ADMIT DATE: 09/25/21/ER FS Signed Date of Exam:09/25/21 CHEST 1 VIEW AP/PA ONLY Indication: Hyperglycemia Portable chest 4:29 AM There are postoperative changes from a median sternotomy. Heart size and pulmonary vascularity are normal. Lungs are clear. There are no effusions or pneumothoraces. IMPRESSION: No acute abnormalities in the chest Dictated by: Dictated on workstation # [id number] Dict: 09/25/216 Trans: 09/25/21450 TCB [id number] Interpreted by: FRANSISCA ALLEN MD Electronically signed by: FRANSISCA ALLEN MD 09/25/21450 Reviewed: Reviewed by Me Departure Impression Primary Impression: Type 2 diabetes mellitus Qualified Codes: E11.65 - Type 2 diabetes mellitus with hyperglycemia; Z79.4 - senior living (current) use of insulin Additional Impressions: Hyperglycemia Mild dehydration Hyponatremia Disposition: HOME, SELF-CARE Condition: Stable Departure-Patient Inst. Decision time for Depature: 06:27 Referrals: RANDALL OMER APRN (PCP/Family) Primary Care Physician Patient Instructions: High Blood Sugar, Adult, Hyponatremia (DC) Add. Discharge Instructions: You have low sodium and high blood sugar which has contributed to dehydration. I encourage you to drink less soda as caffeine can worsen your low sodium. Please hold off on taking the hydrochlorothiazide until you meet with your primary care provider as this can contribute to low sodium. Eating more sodium alone will not correct this problem. Decreasing your caffeine intake is probably the most important thing you can do. When you get home change out the glucose sensor. Check it with a manual glucometer as well to make sure it is reading accurately. Keep your follow-up appointment with your primary care provider today. All discharge instructions reviewed with patient and/or family. Voiced understanding. Copy Copies To 1: LEO FLOR TITUS J September 25, 2021 04:18
--- NOTE | 2021-09-25 04:53 | Diagnostic Imaging Report ---
Indication: Hyperglycemia Portable chest 4:29 AM There are postoperative changes from a median sternotomy. Heart size and pulmonary vascularity are normal. Lungs are clear. There are no effusions or pneumothoraces. IMPRESSION: No acute abnormalities in the chest Dictated by: Dictated on workstation # [id number]
[2021-09-25 05:00] LABS: BASOPHILS % (AUTO) 0 % (0-10); EOSINOPHILS # (AUTO) 0.4 10^3/uL (0.0-0.3); EOSINOPHILS % (AUTO) 3 % (0-10); HEMATOCRIT 34 % (40-54); HEMOGLOBIN 11.1 g/dL (13.3-17.7); LYMPHOCYTES # (AUTO) 2.9 10^3/uL (1.0-4.0); LYMPHOCYTES % (AUTO) 25 % (12-44); MEAN CORPUSCULAR HEMOGLOBIN 29 pg (25-34); MEAN CORPUSCULAR HGB CONC 33 g/dL (32-36); MEAN CORPUSCULAR VOLUME 87 fL (80-99); MEAN PLATELET VOLUME 10.6 fL (9.0-12.2); MONOCYTES # (AUTO) 0.9 10^3/uL (0.0-1.0); MONOCYTES % (AUTO) 8 % (0-12); NEUTROPHILS # (AUTO) 7.2 10^3/uL (1.8-7.8); NEUTROPHILS % (AUTO) 63 % (42-75); PLATELET COUNT 200 10^3/uL (130-400); WHITE BLOOD COUNT 11.3 10^3/uL (4.3-11.0)
[2021-09-25 05:14] LABS: POTASSIUM 4.7 MMOL/L (3.6-5.0)
[2021-09-25 05:15] LABS: CREATININE SERUM 1.75 MG/DL (0.60-1.30)
[2021-09-25 05:16] LABS: ALBUMIN 3.6 GM/DL (3.2-4.5); BILIRUBIN,TOTAL 0.2 MG/DL (0.1-1.0); CALCIUM 8.6 MG/DL (8.5-10.1); MAGNESIUM 1.7 MG/DL (1.6-2.4); TOTAL PROTEIN 6.3 GM/DL (6.4-8.2)
[2021-09-25] MEDS ORDERED: NS IV 1000 ML 1,000 ML IV SCH (05:30)
[2021-09-25 05:56] LABS: BILIRUBIN,URINE NEGATIVE (NEGATIVE); CLARITY,URINE CLEAR; COLOR,URINE YELLOW; GLUCOSE, URINE (UA) 3+ (NEGATIVE); KETONES,URINE NEGATIVE (NEGATIVE); LEUKOCYTE ESTERASE ,URINE NEGATIVE (NEGATIVE); NITRITE,URINE NEGATIVE (NEGATIVE); PROTEIN,URINE 1+ (NEGATIVE)
[2021-09-25 06:07] LABS: BACTERIA,URINE NEGATIVE /HPF; RBC,URINE 0-2 /HPF; SQUAMOUS EPITHELIAL CELL,UR RARE /HPF; WBC,URINE RARE /HPF
[2021-09-25] MEDS ORDERED: amLODIPine 5 MG (NORVASC) TAB PO ONE (06:45)
[2021-09-25 06:48] VITALS: BP 145/58
== END 2021-09-25 06:48 | disposition home or self-care (01) ==
LOC: EDUNIT# 03:57 → ER FS 04:00
DX: E11.65 Type 2 diabetes mellitus with hyperglycemia (principal); E86.0 Dehydration; E87.1 Hypo-osmolality and hyponatremia; E11.22 Type 2 diabetes mellitus with diabetic chronic kidney disease; N18.30 Chronic kidney disease, stage 3 unspecified; I25.10 Atherosclerotic heart disease of native coronary artery without angina pectoris; I25.2 Old myocardial infarction; Z86.73 Personal history of transient ischemic attack (TIA), and cerebral infarction without residual deficits; Z79.4 Long term (current) use of insulin; Z95.1 Presence of aortocoronary bypass graft
CPT/HCPCS: 36415; 71045; 80053; 81000; 82010; 82947; 83735; 85025; 85610; 86141

== ENCOUNTER → 2021-09-25 | Outpatient (CLI) | payer MEDICARE, OTHER ==
[~2021-09-25] MED LIST changes: +CALC-250 PO; +INSU100C3 SQ
--- NOTE | 2021-09-25 13:25 | Diagnostic Imaging Report ---
EXAMINATION: Left ankle 3 views HISTORY: LEFT ANKLE PAIN, UNSPECIFIED CHRONICITY COMPARISON: None available. FINDINGS: There is abnormal fusion seen at the tibiotalar and talofibular joints. No acute fracture or destructive osseous process is seen. The soft tissues are normal. IMPRESSION: Abnormal osseous fusion at the ankle mortise without acute osseous abnormality. Dictated by: Dictated on workstation # [id number]
== END ==
LOC: RAD FS 12:22
PROVIDERS: ATTEND Nurse Practitioner Family
DX: M25.572 Pain in left ankle and joints of left foot (principal); Q79.8 Other congenital malformations of musculoskeletal system
CPT/HCPCS: 73610

== ENCOUNTER 2022-01-22 12:02 | Emergency (ER) | payer MEDICARE, OTHER ==
[~2022-01-22] VITALS: Ht 167.7 cm; Wt 68.9 kg
[2022-01-22] MEDS ORDERED: ASPIRIN 81 MG CHEW (CHILDREN'S ASA) PO ONE (12:15)
[2022-01-22] MEDS ORDERED: HYDROcodone/APAP 5 MG/325 MG (LORTAB) TAB PO ONE (12:15)
--- NOTE | 2022-01-22 12:20 | ED Upper Extremity ---
General Stated Complaint: IRREGULAR EKG Source: patient Exam Limitations: no limitations History of Present Illness Date Seen by Provider: Jan 22, 2022 Time Seen by Provider: 12:04 Initial Comments 71yoM with PMH of DM, CAD s/p CABG and stent, HTN, HLD, CKD, and chronic tobacco use coming in as a referral from clinic due to an abnormal EKG. He has had left shoulder pain for greater than 6 weeks, chronic, constant, moderate, worse with movement, better with rest. He takes hydrocodone which also helps. At times it radiates across his chest just a little bit. Denies any shortness of breath, fever, weakness, numbness, or any other concerns associated with it. Has not had any imaging of his shoulder. Denies any injury to it. He is otherwise denying any other acute complaints Allergies and Home Medications Allergies Coded Allergies: codeine (Verified Allergy, Unknown, 07/09/21) iodine (Verified Allergy, Unknown, 07/01/19) Patient Home Medication List Home Medication List Reviewed: Yes Albuterol Sulfate (Proair Hfa) 1 Puff Puff, 2 PUFF IH Q6H PRN for WHEEZING, (Reported) Entered as Reported by: MONICA CORTEZ on 10/04/19 1051 Atorvastatin Calcium (Atorvastatin Calcium) 80 Mg Tablet, 80 MG PO HS, (Repor dave) Entered as Reported by: LYNDA REESE on 07/01/19 2255 Cholecalciferol (Vitamin D3) (Vitamin D3) 125 Mcg Tablet, 125 MCG PO WEEK, (Reported) Entered as Reported by: MONICA CORTEZ on 07/09/21 0904 Citalopram Hydrobromide (Citalopram HBr) 20 Mg Tablet, 20 MG PO DAILY, (Reported) Entered as Reported by: LYNDA REESE on 07/01/19 2255 Clopidogrel Bisulfate (Clopidogrel) 75 Mg Tablet, 75 MG PO DAILY, (Reported) Entered as Reported by: MONICA CORTEZ on 07/09/21 0856 Fluticasone Propionate (Flonase Allergy Relief) 9.9 Ml [place].susp, 1 SPRAY NSEACH DAILY, (Reported) Entered as Reported by: MONICA CORTEZ on 10/04/19 1051 Insulin Aspart (Novolog) 300 Units/3 Ml Cartridge, 0-30 UNITS SQ AC, (Reported) Entered as Reported by: MONICA CORTEZ on 07/09/21 0856 Lisinopril (Lisinopril) 10 Mg Tablet, 10 MG PO DAILY, (Reported) Entered as Reported by: LYNDA REESE on 07/01/19 2255 Zolpidem Tartrate (Zolpidem Tartrate) 5 Mg Tablet, 5 MG PO HS, (Reported) Entered as Reported by: BRIAN COPELAND on 05/13/20 1116 Review of Systems Constitutional: No fever EENTM: No blurred vision Respiratory: No cough, No short of breath Cardiovascular: No palpitations Gastrointestinal: No abdominal pain Genitourinary: no symptoms reported Musculoskeletal: see HPI Skin: no symptoms reported Psychiatric/Neurological: No Symptoms Reported All Other Systems Reviewed Negative Unless Noted: Yes Past Tfeuimt-Lbwrmb-Apruzb Hx Patient Social History Tobacco Use?: Yes Tobacco type used: Cigarettes Immunizations Up To Date First/Initial COVID19 Vaccinat: YES Second COVID19 Vaccination Martin: YES Third COVID19 Vaccination Date: YES Seasonal Allergies Seasonal Allergies: No Past Medical History Surgery/Hospitalization HX: [place]/CAD, CABG Quad vessel 1999, CVA 2019, PVD, Bilateral Fem-pop, DM, Hyperlipidemia, CKD Stage 3 Surgeries: Yes (bilat fem-pop) Cardiac, CABG, Coronary Stent Respiratory: No Currently Using CPAP: No Currently Using BIPAP: No Cardiac: Yes (cabg) Coronary Artery Disease, Heart Attack, High Cholesterol, Hypertension Neurological: Yes TIA Genitourinary: Yes Renal Failure Gastrointestinal: Yes (hx of dysphageal stricture, ) Nieves's Esophagus Musculoskeletal: No Endocrine: Yes Diabetes, Insulin dep HEENT: No Cancer: No Psychosocial: No Integumentary: No Blood Disorders: No Family Medical History Cancer, CAD Over 55 Years Old, Diabetes, Hypertension Physical Exam Vital Signs Vital Signs - First Documented 01/22/22 12:07 Temp 36.4 Pulse 72 Resp 17 B/P (MAP) 157/66 (96) Pulse Ox 100 O2 Delivery Room Air Capillary Refill : Height, Weight, BMI Height: '" Weight: lbs. oz. kg; 24.00 BMI Method: General Appearance: WD/WN, no apparent distress HEENT: PERRL/EOMI, normal ENT inspection, pharynx normal Neck: non-tender, full range of motion, supple, normal inspection Cardiovascular: regular rate, rhythm, no edema, no murmur Respiratory: chest non-tender, lungs clear, normal breath sounds, no respiratory distress, no accessory muscle use Gastrointestinal: normal bowel sounds, non tender, soft; No distended, No guarding, No rebound Back: normal inspection, no CVA tenderness, no vertebral tenderness Shoulder: non-tender, no evidence of injury, limited ROM (Decreased range of motion of the left shoulder compared to the right, 4+ out of 5 strength with rotator cuff testing, 5 out of 5 strength with abduction, pain with range of motion that recreates his symptoms), pain Elbow/Forearm: normal inspection, non-tender, no evidence of injury, normal ROM Neurologic/Tendon: normal sensation, normal motor functions Neurologic/Psychiatric: no motor/sensory deficits, alert, normal mood/affect Skin: normal color, warm/dry Lymphatic: no adenopathy Procedures/Interventions Progress Left subacromial shoulder injection performed with 4 cc of 0.5% bupivacaine and 1 cc which is 40 mg of Depo-Medrol with a 27-gauge needle. The patient was verbally consented before the procedure. He tolerated it well with no complications. Bandage applied afterwards Progress/Results/Core Measures Results/Orders Lab Results Laboratory Tests Test 01/22/22 12:13 Range/Units White Blood Count 12.0 H 4.3-11.0 10^3/uL Red Blood Count 3.92 L 4.30-5.52 10^6/uL Hemoglobin 11.4 L 13.3-17.7 g/dL Hematocrit 34 L 40-54 % Mean Corpuscular Volume 88 80-99 fL Mean Corpuscular Hemoglobin 29 25-34 pg Mean Corpuscular Hemoglobin Concent 33 32-36 g/dL Red Cell Distribution Width 13.1 10.0-14.5 % Platelet Count 254 130-400 10^3/uL Mean Platelet Volume 9.6 9.0-12.2 fL Immature Granulocyte % (Auto) 1 % Neutrophils (%) (Auto) 70 42-75 % Lymphocytes (%) (Auto) 22 12-44 % Monocytes (%) (Auto) 6 0-12 % Eosinophils (%) (Auto) 2 0-10 % Basophils (%) (Auto) 0 0-10 % Neutrophils # (Auto) 8.4 H 1.8-7.8 10^3/uL Lymphocytes # (Auto) 2.6 1.0-4.0 10^3/uL Monocytes # (Auto) 0.7 0.0-1.0 10^3/uL Eosinophils # (Auto) 0.3 0.0-0.3 10^3/uL Basophils # (Auto) 0.0 0.0-0.1 10^3/uL Immature Granulocyte # (Auto) 0.1 0.0-0.1 10^3/uL Prothrombin Time 13.7 12.2-14.7 SEC INR Comment 1.0 0.8-1.4 Activated Partial Thromboplast Time 29 24-35 SEC Sodium Level 140 135-145 MMOL/L Potassium Level 4.9 3.6-5.0 MMOL/L Chloride Level 107 98-107 MMOL/L Carbon Dioxide Level 23 21-32 MMOL/L Anion Gap 10 5-14 MMOL/L Blood Urea Nitrogen 28 H 7-18 MG/DL Creatinine 1.91 H 0.60-1.30 MG/DL Estimat Glomerular Filtration Rate 37 BUN/Creatinine Ratio 15 Glucose Level 115 H 70-105 MG/DL Calcium Level 9.0 8.5-10.1 MG/DL Corrected Calcium 9.0 8.5-10.1 MG/DL Magnesium Level 1.8 1.6-2.4 MG/DL Total Bilirubin 0.6 0.1-1.0 MG/DL Aspartate Amino Transf (AST/SGOT) 13 5-34 U/L Alanine Aminotransferase (ALT/SGPT) 13 0-55 U/L Alkaline Phosphatase 160 H 40-136 U/L Troponin I < 0.30 <0.30 NG/ML Pro-B-Type Natriuretic Peptide 2253.0 H <125.0 PG/ML Total Protein 7.2 6.4-8.2 GM/DL Albumin 4.0 3.2-4.5 GM/DL Lipase 81 H 8-78 U/L My Orders Orders - CANDACE MALONEY MD Ekg Tracing (01/22/22 12:07) Cbc With Automated Diff (01/22/22 12:15) Magnesium (01/22/22 12:15) Chest 1 View Ap/Pa Only (01/22/22 12:15) Comprehensive Metabolic Panel (01/22/22 12:15) Protime With Inr (01/22/22 12:15) Partial Thromboplastin Time (01/22/22 12:15) O2 (01/22/22 12:15) Monitor-Rhythm Ecg Trace Only (01/22/22 12:15) Aspirin Chewable Tablet (Baby Aspirin Ch (01/22/22 12:15) Ed Iv/Invasive Line Start (01/22/22 12:15) Lipase (01/22/22 12:15) Troponin I Fs (01/22/22 12:15) Probnp Fs (01/22/22 12:15) Shoulder 3 View Left (01/22/22 12:15) Hydrocodone/Apap 5/325 Tablet (Lortab 5 (01/22/22 12:15) Methylprednisolone Acetate Inj (Depo-Med (01/22/22 13:15) Medications Given in ED Current Medications Medications Dose Ordered Sig/Nacho Route Start Time Stop Time Status Last Admin Dose Admin Acetaminophen/ Hydrocodone Bitart 1 ea ONCE ONCE PO 01/22/22 12:15 01/22/22 12:17 DC 01/22/22 12:26 1 EA Aspirin 324 mg ONCE ONCE PO 01/22/22 12:15 01/22/22 12:17 DC 01/22/22 12:26 324 MG Methylprednisolone Acetate 40 mg ONCE ONCE IA 01/22/22 13:15 01/22/22 13:16 DC 01/22/22 13:19 40 MG Vital Signs/I&O 01/22/22 01/22/22 12:07 12:07 Temp 36.4 Pulse 72 Resp 17 B/P (MAP) 157/66 (96) Pulse Ox 100 O2 Delivery Room Air Room Air Progress Progress Note : Progress Note [id number] male with above history coming in due to left shoulder pain. ABCs were intact and vitals were stable on presentation. Physical exam with decreased range of motion passively and actively in the left shoulder compared to the right with increasing pain with any type of movement that recreates his pain that he is describing. X-ray with mild degenerative changes but no fracture or dislocation. Cardiac biomarkers with a negative troponin, slightly elevated BNP with no prior. He is not feeling short of breath and does not show any signs of heart failure on exam. EKG with right bundle branch block with no prior EKG to compare to. He does not appear to have any acute ischemic changes. He was given his home dose of his hydrocodone with significant improvement in the symptoms. Clinically it would appear like he has adhesive capsulitis, offered him a steroid injection in the shoulder which he was agreeable to. I discussed that given he is a diabetic he will have some increasing blood sugars which he will monitor closely with his insulin pump. I will have him follow-up with orthopedics as an outpatient as well as his cracker off if he develops any chest pain. At the time of my interview he is not having any chest pain and never did while in the ER. Of note, on reassessment after the bupivacaine injection into his left shoulder, his pain had significantly improved which points to this being likely the correct diagnosis. Initial ECG Impression Date: Jan 22, 2022 Initial ECG Impression Time: 12:19 Initial ECG Rate: 73 Initial ECG Rhythm: Normal Sinus Comment Wide QRS with a right bundle branch block, accounting for this no significant ST elevation, borderline normal axis Departure Impression Primary Impression: Adhesive capsulitis of left shoulder Disposition: 01 HOME, SELF-CARE Condition: Stable Departure-Patient Inst. Decision time for Depature: 13:25 Referrals: RANDALL OMER APRN (PCP) Primary Care Physician [facility] [place] (Family) Primary Care Physician ALISSA MAGAÑA MD Patient Instructions: Frozen Shoulder (DC) Add. Discharge Instructions: I believe you have a frozen shoulder on the left. This can take many months to a year to get better. Typically the pain gets better long before the stiffness goes away. I would follow-up with Dr. Magaña regarding this in the next couple of weeks. If offered an injection, just be sure to mention that you had 1 on January 22. If you develop any chest pain that is severe and concerning then I would call your cracker off or come to the ER. Work/School Note: Work Release Form Date Seen in the Emergency Department: Jan 22, 2022 Return to Work: Jan 23, 2022 Restrictions: No Restrictions CANDACE MALONEY MD Jan 22, 2022 12:20
[2022-01-22 12:35] LABS: BASOPHILS % (AUTO) 0 % (0-10); EOSINOPHILS # (AUTO) 0.3 10^3/uL (0.0-0.3); EOSINOPHILS % (AUTO) 2 % (0-10); HEMATOCRIT 34 % (40-54); HEMOGLOBIN 11.4 g/dL (13.3-17.7); LYMPHOCYTES # (AUTO) 2.6 10^3/uL (1.0-4.0); LYMPHOCYTES % (AUTO) 22 % (12-44); MEAN CORPUSCULAR HEMOGLOBIN 29 pg (25-34); MEAN CORPUSCULAR HGB CONC 33 g/dL (32-36); MEAN CORPUSCULAR VOLUME 88 fL (80-99); MEAN PLATELET VOLUME 9.6 fL (9.0-12.2); MONOCYTES # (AUTO) 0.7 10^3/uL (0.0-1.0); MONOCYTES % (AUTO) 6 % (0-12); NEUTROPHILS # (AUTO) 8.4 10^3/uL (1.8-7.8); NEUTROPHILS % (AUTO) 70 % (42-75); PLATELET COUNT 254 10^3/uL (130-400)
--- NOTE | 2022-01-22 12:37 | Diagnostic Imaging Report ---
INDICATION: Chest pain. COMPARISON: Comparison is made with prior examination of 09/25/2021. FINDINGS: The heart size is normal. There has been previous median sternotomy. There may be a trace right pleural effusion. There is no pneumothorax. Mediastinum is unremarkable. IMPRESSION: Findings suspect for small right pleural effusion, otherwise unremarkable. Dictated by: Dictated on workstation # [id number]
--- NOTE | 2022-01-22 12:38 | Diagnostic Imaging Report ---
SHOULDER 3 VIEW LEFT INDICATION: Left shoulder pain COMPARISON: None available. TECHNIQUE: 3 views of left shoulder FINDINGS: No fracture. Alignment is normal. Mild degenerative changes in the glenohumeral and acromioclavicular joints. Subacromial space is preserved. The visualized portions of the left ribs are intact. IMPRESSION: No acute fracture or traumatic malalignment. Dictated by: Dictated on workstation # [id number]
[2022-01-22 12:46] LABS: PROTHROMBIN TIME PATIENT 13.7 SEC (12.2-14.7)
[2022-01-22 12:48] LABS: BILIRUBIN,TOTAL 0.6 MG/DL (0.1-1.0); CREATININE SERUM 1.91 MG/DL (0.60-1.30); MAGNESIUM 1.8 MG/DL (1.6-2.4); POTASSIUM 4.9 MMOL/L (3.6-5.0); TOTAL PROTEIN 7.2 GM/DL (6.4-8.2)
[2022-01-22] MEDS ORDERED: methylPREDNISolone 40 MG/ML (DEPO MEDROL) VIAL IA ONE (13:15)
[2022-01-22 13:36] VITALS: BP 142/82
== END 2022-01-22 13:36 | disposition home or self-care (01) ==
LOC: EDUNIT# 12:02 → ER FS 12:04
DX: M75.02 Adhesive capsulitis of left shoulder (principal); R79.89 Other specified abnormal findings of blood chemistry; E11.9 Type 2 diabetes mellitus without complications; F17.210 Nicotine dependence, cigarettes, uncomplicated; Z79.4 Long term (current) use of insulin
CPT/HCPCS: 36415; 71045; 73030; 80053; 83690; 83735; 83880; 84484; 85025; 85610; 85730; 93005; 93041

== ENCOUNTER 2022-03-30 22:21 | Emergency (ER) | payer MEDICARE, OTHER ==
[~2022-03-30] VITALS: Ht 170.1 cm; Wt 68.8 kg
[~2022-03-30 22:21] MED LIST changes: +ALBU8.5H6 IH; -RT-ALBUINH IH
[2022-03-30] MEDS ORDERED: NS IV 1000 ML 1,000 ML IV STA (22:33)
[2022-03-30] MEDS ORDERED: RT-ALBUTEROL HFA 8.5 GM INHALER IH STA (22:33)
[2022-03-30 22:45] LABS: BASOPHILS % (AUTO) 0 % (0-10); EOSINOPHILS # (AUTO) 0.2 10^3/uL (0.0-0.3); EOSINOPHILS % (AUTO) 1 % (0-10); HEMATOCRIT 34 % (40-54); HEMOGLOBIN 11.3 g/dL (13.3-17.7); LYMPHOCYTES # (AUTO) 3.7 10^3/uL (1.0-4.0); LYMPHOCYTES % (AUTO) 24 % (12-44); MEAN CORPUSCULAR HEMOGLOBIN 29 pg (25-34); MEAN CORPUSCULAR HGB CONC 33 g/dL (32-36); MEAN CORPUSCULAR VOLUME 87 fL (80-99); MEAN PLATELET VOLUME 9.8 fL (9.0-12.2); MONOCYTES # (AUTO) 1.4 10^3/uL (0.0-1.0); MONOCYTES % (AUTO) 9 % (0-12); NEUTROPHILS # (AUTO) 9.9 10^3/uL (1.8-7.8); NEUTROPHILS % (AUTO) 64 % (42-75); PLATELET COUNT 284 10^3/uL (130-400); WHITE BLOOD COUNT 15.4 10^3/uL (4.3-11.0)
[2022-03-30 23:00] LABS: NEUTROPHILS % (MANUAL) 70 %
--- NOTE | 2022-03-30 23:00 | ED General ---
General Chief Complaint: COVID19 Suspect/Confirmed Stated Complaint: FALL,WHEEZING,WEAKNESS Source of Information: Patient, Family History of Present Illness Date Seen by Provider: Mar 30, 2022 Time Seen by Provider: 22:23 Initial Comments 72-year-old male presenting with complaints of fall where he hit his forehead on the nightstand. He was diagnosed with COVID last week and has been feeling like he was more short of breath and wheezing more. He also felt more weak today. He denies having a loss of consciousness. He had history of smoking and does continue to smoke. He was running a fever. Family was concerned about his fall and hitting his head since he takes a blood thinner. They were worried that he may be had pneumonia since he had COVID and was more short of breath. They have not tried to get in with his primary care provider. Timing/Duration: 1 Week Severity: Moderate Modifying Factors: worse with Movement (Activity makes him more short of breath and weak) Associated Systoms: No Chest Pain; Cough; No Diaphoresis, No Fever/Chills, No Headaches, No Loss of Appetite, No Malaise, No Nausea/Vomiting, No Rash, No Seizure; Shortness of Air; No Syncope; Weakness (Generalized) Allergies and Home Medications Allergies Coded Allergies: codeine (Verified Allergy, Unknown, 07/09/21) iodine (Verified Allergy, Unknown, 07/01/19) Patient Home Medication List Home Medication List Reviewed: Yes Albuterol Sulfate (Ventolin Hfa) 1 Puff Puff, 2 PUFF IH Q6H PRN for WHEEZING, (Reported) Entered as Reported by: MONICA CORTEZ on 10/04/19 1051 Atorvastatin Calcium (Atorvastatin Calcium) 80 Mg Tablet, 80 MG PO HS, (Reported) Entered as Reported by: LYNDA RESEE on 07/01/19 225 Cholecalciferol (Vitamin D3) (Vitamin D3) 125 Mcg Tablet, 125 MCG PO WEEK, (Reported) Entered as Reported by: MONICA CORTEZ on 07/09/21 0904 Citalopram Hydrobromide (Citalopram HBr) 20 Mg Tablet, 20 MG PO DAILY, (Reported) Entered as Reported by: LYNDA REESE on 07/01/19 225 Clopidogrel Bisulfate (Clopidogrel) 75 Mg Tablet, 75 MG PO DAILY, (Reported) Entered as Reported by: MONICA CORTEZ on 07/09/21 0856 Fluticasone Propionate (Flonase Allergy Relief) 9.9 Ml [place].susp, 1 SPRAY NSEACH DAILY, (Reported) Entered as Reported by: MONICA CORTEZ on 10/04/19 1051 Insulin Aspart (Novolog) 300 Units/3 Ml Cartridge, 0-30 UNITS SQ AC, (Reported) Entered as Reported by: MONICA CORTEZ on 07/09/21 0856 Lisinopril (Lisinopril) 10 Mg Tablet, 10 MG PO DAILY, (Reported) Entered as Reported by: LYNDA REESE on 07/01/19 2255 Zolpidem Tartrate (Zolpidem Tartrate) 5 Mg Tablet, 5 MG PO HS, (Reported) Entered as Reported by: BRIAN COPELAND on 05/13/20 1116 Review of Systems Review of Systems Constitutional: see HPI; No chills, No fever EENTM: no symptoms reported Respiratory: cough, short of breath; No stridor; wheezing Cardiovascular: No chest pain Gastrointestinal: No nausea, No vomiting Genitourinary: No dysuria Musculoskeletal: no symptoms reported Skin: No change in color, No rash Psychiatric/Neurological: See HPI Hematologic/Lymphatic: Easy Bleeding (Taking Plavix), Easy Bruising (Taking Plavix) Past Djltgsn-Cpkqdv-Trjbfi Hx Patient Social History Tobacco Use?: Yes Tobacco type used: Cigarettes Smoking Status: Current Someday Smoker Substance use?: No Alcohol Use?: No Pt feels they are or have been: No Immunizations Up To Date First/Initial COVID19 Vaccinat: YES Second COVID19 Vaccination Martin: YES Third COVID19 Vaccination Date: YES COVID19 Vaccine Molder Machine: Jumbas Seasonal Allergies Seasonal Allergies: No Past Medical History Surgery/Hospitalization HX: [place]/CAD, CABG Quad vessel 1999, CVA 2019, PVD, Bilateral Fem-pop, DM, Hyperlipidemia, CKD Stage 3 Surgeries: Yes (bilat fem-pop) Cardiac, CABG, Coronary Stent Respiratory: No Currently Using CPAP: No Currently Using BIPAP: No Cardiac: Yes (cabg) Coronary Artery Disease, Heart Attack, High Cholesterol, Hypertension Neurological: Yes TIA Genitourinary: Yes Renal Failure Gastrointestinal: Yes (hx of dysphageal stricture, ) Nieves's Esophagus Musculoskeletal: No Endocrine: Yes Diabetes, Insulin dep HEENT: No Cancer: No Psychosocial: No Integumentary: No Blood Disorders: No Family Medical History Cancer, CAD Over 55 Years Old, Diabetes, Hypertension Physical Exam Vital Signs Vital Signs - First Documented 03/30/22 22:24 Temp 36.1 Pulse 92 Resp 20 B/P (MAP) 152/57 (88) Pulse Ox 96 O2 Delivery Room Air Capillary Refill : Height, Weight, BMI Height: '" Weight: lbs. oz. kg; 24.00 BMI Method: General Appearance: No Apparent Distress, WD/WN HEENT: PERRL/EOMI, Normal ENT Inspection, Pharynx Normal, Moist Mucous Membranes Neck: Full Range of Motion, Normal Inspection, Non Tender, Supple Respiratory: Chest Non Tender, No Accessory Muscle Use, No Respiratory Distres s; No Rhonci, No Stridor; Wheezing (Mild end expiratory wheezing) Cardiovascular: Regular Rate, Rhythm, Normal Peripheral Pulses Gastrointestinal: Normal Bowel Sounds, No Pulsatile Mass, Non Tender, Soft Rectal: Deferred Extremity: Normal Capillary Refill, Normal Inspection, No Pedal Edema Neurologic/Psychiatric: Alert, Oriented x3, 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 Norm as Tested Skin: Normal Color, Warm/Dry Progress/Results/Core Measures Suspected Sepsis SIRS Temperature: Pulse: Respiratory Rate: Laboratory Tests 03/30/22 22:34: White Blood Count 15.4H Blood Pressure / Mean: Laboratory Tests 03/30/22 22:34: Creatinine 2.27H, Platelet Count 284, Total Bilirubin 0.2 Results/Orders Lab Results Laboratory Tests Test 03/30/22 22:34 Range/Units White Blood Count 15.4 H 4.3-11.0 10^3/uL Red Blood Count 3.95 L 4.30-5.52 10^6/uL Hemoglobin 11.3 L 13.3-17.7 g/dL Hematocrit 34 L 40-54 % Mean Corpuscular Volume 87 80-99 fL Mean Corpuscular Hemoglobin 29 25-34 pg Mean Corpuscular Hemoglobin Concent 33 32-36 g/dL Red Cell Distribution Width 12.6 10.0-14.5 % Platelet Count 284 130-400 10^3/uL Mean Platelet Volume 9.8 9.0-12.2 fL Immature Granulocyte % (Auto) 1 % Neutrophils (%) (Auto) 64 42-75 % Lymphocytes (%) (Auto) 24 12-44 % Monocytes (%) (Auto) 9 0-12 % Eosinophils (%) (Auto) 1 0-10 % Basophils (%) (Auto) 0 0-10 % Neutrophils # (Auto) 9.9 H 1.8-7.8 10^3/uL Lymphocytes # (Auto) 3.7 1.0-4.0 10^3/uL Monocytes # (Auto) 1.4 H 0.0-1.0 10^3/uL Eosinophils # (Auto) 0.2 0.0-0.3 10^3/uL Basophils # (Auto) 0.0 0.0-0.1 10^3/uL Immature Granulocyte # (Auto) 0.1 0.0-0.1 10^3/uL Neutrophils % (Manual) 70 % Lymphocytes % (Manual) 18 % Monocytes % (Manual) 7 % Eosinophils % (Manual) 2 % Reactive Lymphocytes 3 % Platelet Estimate NORMAL Blood Morphology Comment NORMAL Sodium Level 140 135-145 MMOL/L Potassium Level 4.3 3.6-5.0 MMOL/L Chloride Level 103 98-107 MMOL/L Carbon Dioxide Level 21 21-32 MMOL/L Anion Gap 16 H 5-14 MMOL/L Blood Urea Nitrogen 37 H 7-18 MG/DL Creatinine 2.27 H 0.60-1.30 MG/DL Estimat Glomerular Filtration Rate 30 BUN/Creatinine Ratio 16 Glucose Level 95 70-105 MG/DL Calcium Level 9.1 8.5-10.1 MG/DL Corrected Calcium 9.6 8.5-10.1 MG/DL Total Bilirubin 0.2 0.1-1.0 MG/DL Aspartate Amino Transf (AST/SGOT) 12 5-34 U/L Alanine Aminotransferase (ALT/SGPT) 11 0-55 U/L Alkaline Phosphatase 118 40-136 U/L C-Reactive Protein 16.88 H <0.50 MG/DL Total Protein 7.1 6.4-8.2 GM/DL Albumin 3.4 3.2-4.5 GM/DL My Orders Orders - JOE POWERS MD Cbc With Automated Diff (03/30/22 22:33) Comprehensive Metabolic Panel (03/30/22 22:33) Ua Culture If Indicated (03/30/22 22:33) Chest 1 View Ap/Pa Only (03/30/22 22:33) Ed Iv/Invasive Line Start (03/30/22 22:33) Crp Fs (03/30/22 22:33) Ns Iv 1000 Ml (Sodium Chloride 0.9%) (03/30/22 22:33) Ct Head Wo (03/30/22 22:33) Albuterol Inhaler (Albuterol) (03/30/22 22:33) Manual Differential (03/30/22 22:34) Vital Signs/I&O 03/30/22 03/30/22 22:24 23:45 Temp 36.1 Pulse 92 94 Resp 20 18 B/P (MAP) 152/57 (88) 146/62 Pulse Ox 96 98 O2 Delivery Room Air Room Air 03/31/22 00:00 Intake Total 1000 ml Balance 1000 ml Capillary Refill : Progress Note #1: Progress Note Obtain basic labs and check blood count as well as electrolytes. CT scan of the head since he takes Plavix and had a fall with hitting his forehead. Chest x- ray to evaluate for pneumonia, infiltrate, effusion, cardiomegaly, pneumothorax. Order albuterol inhaler 2 puffs with a spacer to help with his shortness of breath and wheezing. Progress Note #2: Progress Note CBC shows elevated white blood cell count to 15.9 with a mild left shift. This appears similar to prior CBCs. He has chronic stable mild anemia with a hemoglobin of 11.3, similar to prior CBCs. Chemistry panel shows mild worsening of his chronic kidney disease with elevation of his BUN and creatinine. His baseline creatinine runs 1.9-2.1 and tonight he was at 2.2. He has elevated CRP to go along with his recent COVID infection. Chest x-ray on my independent review and interpretation did not show acute infiltrate or pneumonia. Comparing to January 2022, it appeared that his small right pleural effusion had improved. CT scan of head without IV contrast read out by [facility] radiology service as no acute intracranial hemorrhage, skull fracture, stroke. He had improved wheezing and shortness of breath after treatment with albuterol inhaler with spacer. Will have him continue to use this at home and check back with pcp for continued concerns. Diagnostic Imaging Diagonstic Imaging: Xray Plain Films/CT/US/NM/MRI: chest Comments On my independent review and interpretation of his 1 view chest x-ray he has no definite acute infiltrates. Pleural effusion from January 22, 2022 appears to have improved. Reviewed: Reviewed by Me Diagonstic Imaging: CT Plain Films/CT/US/NM/MRI: head Comments CT head without contrast No acute intracranial hemorrhage. No midline shift or mass-effect. Age-related cerebral volume loss with periventricular and subcortical white matter hypoattenuation consistent with chronic microangiopathy. Read by radiologist Dr. Sudheer Delarosa MD at [phone] and faxed at [phone] Reviewed: Reviewed Night [facility] Study Departure Impression Primary Impression: Shortness of breath Additional Impressions: Contusion of forehead Qualified Codes: S00.83XA - Contusion of other part of head, initial encounter Fall at home Qualified Codes: W19.XXXA - Unspecified fall, initial encounter; Y92.009 - Unspecified place in unspecified non-institutional (private) residence as the place of occurrence of the external cause COVID-19 virus infection Disposition: HOME, SELF-CARE Condition: Stable Departure-Patient Inst. Decision time for Depature: 23:35 Referrals: RANDALL OMER APRN (PCP) Primary Care Physician [facility] (Family) Primary Care Physician Patient Instructions: COVID-19 ED, How to Use a Metered Dose Inhaler ED, How to Use a Spacer, Preventing Falls ED, Shortness of Breath, Adult ED Add. Discharge Instructions: Use the albuterol inhaler with spacer by taking 2 puffs every 4-6 hours as needed for shortness of breath and wheezing. Continue to stay well-hydrated and drink plenty of fluids. Check back with clinic for continued concerns about shortness of breath, weakness, wheezing. All discharge instructions reviewed with patient and/or family. Voiced understanding. JOE POWERS MD Mar 30, 2022 23:00
[2022-03-30 23:01] LABS: EOSINOPHILS % (MANUAL) 2 %; LYMPHOCYTES % (MANUAL) 18 %; MONOCYTES % (MANUAL) 7 %; PLATELET ESTIMATE NORMAL; RBC MORPH NORMAL; REACTIVE LYMPHOCYTES 3 %
[2022-03-30 23:14] LABS: BILIRUBIN,TOTAL 0.2 MG/DL (0.1-1.0); CALCIUM 9.1 MG/DL (8.5-10.1); CREATININE SERUM 2.27 MG/DL (0.60-1.30); POTASSIUM 4.3 MMOL/L (3.6-5.0); TOTAL PROTEIN 7.1 GM/DL (6.4-8.2)
[2022-03-30 23:15] LABS: ALBUMIN 3.4 GM/DL (3.2-4.5)
[2022-03-30 23:45] VITALS: BP 146/62
--- NOTE | 2022-03-31 06:58 | Diagnostic Imaging Report ---
EXAMINATION: CT head without contrast. TECHNIQUE: Multiple contiguous axial images were obtained through the brain without the use of intravenous contrast. All CT scans use one or more of the following dose optimizing techniques: automated exposure control, MA and/or KvP adjustment based on patient size and exam type or iterative reconstruction. HISTORY: Fall. Head pain. COMPARISON: 07/01/2019. FINDINGS: No large acute territorial ischemia, mass, or hemorrhage. No midline shift or mass effect. Decreased attenuation is seen in the periventricular and subcortical white matter. The ventricles and cortical sulci are prominent. The basilar cisterns are patent and unremarkable. The orbits are normal. Mucosal thickening is seen in the right sphenoid and anterior ethmoid sinuses. Mastoid air cells are clear. No soft tissue abnormality is seen. No osseus lesions or fractures are seen. IMPRESSION: 1. No large acute territorial ischemia, mass, or hemorrhage. 2. Chronic microvascular disease. 3. Generalized parenchymal volume loss. Agree with overnight report. Dictated by: Dictated on workstation # [id number]
--- NOTE | 2022-03-31 07:43 | Diagnostic Imaging Report ---
EXAMINATION: Chest 1 view HISTORY: Cough. Shortness of breath. COMPARISON: 01/22/2022. FINDINGS: The lung volumes are normal. No focal consolidation is seen. No large pleural effusion or pneumothorax is seen. Stable size of the cardiac silhouette with post CABG changes. There is calcified aortic atherosclerotic plaque. No acute osseous abnormality is seen. IMPRESSION: 1. No acute pleuroparenchymal process. Dictated by: Dictated on workstation # [id number]
== END 2022-03-30 23:52 | disposition home or self-care (01) ==
LOC: EDUNIT# 22:21 → ER FS 22:22
DX: S00.83XA Contusion of other part of head, initial encounter (principal); U07.1 COVID-19; R06.02 Shortness of breath; R06.2 Wheezing; D64.9 Anemia, unspecified; I12.9 Hypertensive chronic kidney disease with stage 1 through stage 4 chronic kidney disease, or unspecified chronic kidney disease; E11.22 Type 2 diabetes mellitus with diabetic chronic kidney disease; N18.9 Chronic kidney disease, unspecified; F17.210 Nicotine dependence, cigarettes, uncomplicated; Z73.0 Burn-out; Z79.4 Long term (current) use of insulin; Z79.02 Long term (current) use of antithrombotics/antiplatelets; W18.30XA Fall on same level, unspecified, initial encounter; W22.8XXA Striking against or struck by other objects, initial encounter; Y92.009 Unspecified place in unspecified non-institutional (private) residence as the place of occurrence of the external cause
CPT/HCPCS: 36415; 70450; 71045; 80053; 85007; 85027; 86141

== ENCOUNTER → 2022-04-07 | Outpatient (CLI) | payer MEDICARE, OTHER ==
--- NOTE | 2022-04-07 18:42 | Diagnostic Imaging Report ---
INDICATION: Weakness. Shortness of breath. Covid 19 history. COMPARISON: CT scan from 03/17/2021. FINDINGS: PA and lateral views. The lungs are well aerated. There is some scarring along the major fissure inferiorly on the right. This does appear to be more prominent and may represent increased scarring or some associated atelectasis now. The left lung is clear. The heart is not enlarged. Pulmonary vasculature is normal. IMPRESSION: Increasing atelectasis and/or scarring in the right lower lung. Dictated by: Dictated on workstation # [id number]
== END ==
LOC: RAD FS 09:56
PROVIDERS: ATTEND Nurse Practitioner Family
DX: R53.1 Weakness (principal); R06.02 Shortness of breath; Z86.16 Personal history of COVID-19
CPT/HCPCS: 71046

== ENCOUNTER → 2022-05-07 | Outpatient (CLI) | payer MEDICARE, OTHER ==
--- NOTE | 2022-05-07 18:26 | Diagnostic Imaging Report ---
EXAMINATION: Left foot radiographs, 3 views. COMPARISON: None. HISTORY: 72-year-old male, left foot ulcer. FINDINGS: There is no identified cortical or aggressive bone destruction. There is no identified radiopaque foreign body. Joint spaces appear well-preserved. There is ankylosis across the tibiotalar joint. There is question of ankylosis across the posterior subtalar joint. There is mild talonavicular arthritis. There are vascular calcifications. These are not weight-bearing images for assessment of bone alignment although there is question of pes cavus. There is a mild hallux valgus deformity. IMPRESSION: 1. No radiographic evidence of osteomyelitis or other acute osseous abnormality. 2. Ankylosis across the tibiotalar joint and potentially ankylosis across the posterior subtalar joint. 3. Probable pes cavus. Mild hallux valgus deformity. Dictated by: Dictated on workstation # [id number]
== END ==
LOC: RAD FS 15:43
PROVIDERS: ATTEND Nurse Practitioner Family
DX: L97.521 Non-pressure chronic ulcer of other part of left foot limited to breakdown of skin (principal); M20.12 Hallux valgus (acquired), left foot; M24.675 Ankylosis, left foot
CPT/HCPCS: 73630

== ENCOUNTER 2022-07-09 15:37 | Emergency (ER) | payer MEDICARE, OTHER ==
--- NOTE | 2022-07-09 15:44 | ED GI ---
General Stated Complaint: VOMITING;DIARRHEA;FEVER History of Present Illness Date Seen by Provider: Jul 09, 2022 Time Seen by Provider: 15:44 Initial Comments 72-year-old male presents with a rash that started about 3-4 days ago. He was seen 2 days ago at [facility] and was started on steroids and topical medication. Patient reports that the rash started on his back and is now spread over his body. He reports for the last day or so he developed some nausea some vomiting some diarrhea, and urinary incontinence. Patient reports the nausea vomiting diarrhea started after he started the steroids. He has felt chilled but no fever. He denies any headache, neck pain, vision changes. Patient reports no new medications or known sick contacts. Patient also reports that his blood sugar have been running high. His blood sugars were 450 at home. He they do report his insulin pump and following off that they quickly put it back on. When they noticed his blood sugar was high he had dosed himself for high blood sugar prior to coming in. Allergies and Home Medications Allergies Coded Allergies: codeine (Verified Allergy, Unknown, 07/09/21) iodine (Verified Allergy, Unknown, 07/01/19) Patient Home Medication List Home Medication List Reviewed: Yes Albuterol Sulfate (Ventolin Hfa) 1 Puff Puff, 2 PUFF IH Q6H PRN for WHEEZING, (Reported) Entered as Reported by: MONICA CORTEZ on 10/04/19 1051 Atorvastatin Calcium (Atorvastatin Calcium) 80 Mg Tablet, 80 MG PO HS, (Reported) Entered as Reported by: LYNDA REESE on 07/01/192254 Cholecalciferol (Vitamin D3) (Vitamin D3) 125 Mcg Tablet, 125 MCG PO WEEK, (Reported) Entered as Reported by: MONICA CORTEZ on 07/09/21 0904 Citalopram Hydrobromide (Citalopram HBr) 20 Mg Tablet, 20 MG PO DAILY, (Reported) Entered as Reported by: LYNDA REESE on 07/01/19 225 Clopidogrel Bisulfate (Clopidogrel) 75 Mg Tablet, 75 MG PO DAILY, (Reported) Entered as Reported by: MONICA CORTEZ on 07/09/21 0856 Fluticasone Propionate (Flonase Allergy Relief) 9.9 Ml [place].susp, 1 SPRAY NSEACH DAILY, (Reported) Entered as Reported by: MONICA CORTEZ on 10/04/19 1051 Insulin Aspart (Novolog) 300 Units/3 Ml Cartridge, 0-30 UNITS SQ AC, (Reported) Entered as Reported by: MONICA CORTEZ on 07/09/21 0856 Lisinopril (Lisinopril) 10 Mg Tablet, 10 MG PO DAILY, (Reported) Entered as Reported by: LYNDA REESE on 07/01/19 2255 Zolpidem Tartrate (Zolpidem Tartrate) 5 Mg Tablet, 5 MG PO HS, (Reported) Entered as Reported by: BRIAN COPELAND on 05/13/20 1116 Review of Systems Review of Systems Constitutional: chills; No dizziness; malaise EENTM: No Symptoms Reported Respiratory: Denies Cough, Denies Shortness of Air Cardiovascular: Denies Chest Pain, Denies Lightheadedness Gastrointestinal: Denies Abdominal Pain; Diarrhea, Nausea, Vomiting Genitourinary: Incontinence Musculoskeletal: no symptoms reported; No neck pain Skin: rash Past Hnhnfpa-Nzupcc-Vfjrsi Hx Immunizations Up To Date First/Initial COVID19 Vaccinat: YES Second COVID19 Vaccination Martin: YES Third COVID19 Vaccination Date: YES Seasonal Allergies Seasonal Allergies: No Past Medical History Surgery/Hospitalization HX: AR/CAD, CABG Quad vessel 1999, CVA 2019, PVD, Bilateral Fem-pop, DM, Hyperlipidemia, CKD Stage 3 Surgeries: Yes (bilat fem-pop) Cardiac, CABG, Coronary Stent Respiratory: No Currently Using CPAP: No Currently Using BIPAP: No Cardiac: Yes (cabg) Coronary Artery Disease, Heart Attack, High Cholesterol, Hypertension Neurological: Yes TIA Genitourinary: Yes Renal Failure Gastrointestinal: Yes (hx of dysphageal stricture, ) Nieves's Esophagus Musculoskeletal: No Endocrine: Yes Diabetes, Insulin dep HEENT: No Cancer: No Psychosocial: No Integumentary: No Blood Disorders: No Family Medical History Cancer, CAD Over 55 Years Old, Diabetes, Hypertension Physical Exam Vital Signs Vital Signs - First Documented 07/09/22 07/09/22 15:45 21:00 Temp 36.7 Pulse 103 Resp 16 B/P (MAP) 188/63 (104) Pulse Ox 98 O2 Delivery Room Air Capillary Refill : Height/Weight/BMI Height: '" Weight: lbs. oz. 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, no motor/sensory deficits, alert Skin: rash (diffuse macular rash) Focused Exam Lactate Level 07/09/22 15:55: Lactic Acid Level 3.24*H 07/09/22 18:30: Lactic Acid Level 4.63*H Lactic Acid Level Laboratory Tests Test 07/09/22 15:55 07/09/22 18:30 Lactic Acid Level 3.24 MMOL/L (0.50-2.00) *H 4.63 MMOL/L (0.50-2.00) *H Progress/Results/Core Measures Results/Orders Lab Results Laboratory Tests Test 07/09/22 15:45 07/09/22 15:55 07/09/22 16:00 07/09/22 16:38 Range/Units Group A Streptococcus Screen NEGATIVE NEGATIVE White Blood Count 21.7 H 4.3-11.0 10^3/uL Red Blood Count 4.02 L 4.30-5.52 10^6/uL Hemoglobin 11.6 L 13.3-17.7 g/dL Hematocrit 35 L 40-54 % Mean Corpuscular Volume 88 80-99 fL Mean Corpuscular Hemoglobin 29 25-34 pg Mean Corpuscular Hemoglobin Concent 33 32-36 g/dL Red Cell Distribution Width 13.6 10.0-14.5 % Platelet Count 216 130-400 10^3/uL Mean Platelet Volume 10.6 9.0-12.2 fL Immature Granulocyte % (Auto) 1 % Neutrophils (%) (Auto) 91 H 42-75 % Lymphocytes (%) (Auto) 3 L 12-44 % Monocytes (%) (Auto) 5 0-12 % Eosinophils (%) (Auto) 1 0-10 % Basophils (%) (Auto) 0 0-10 % Neutrophils # (Auto) 19.6 H 1.8-7.8 10^3/uL Lymphocytes # (Auto) 0.7 L 1.0-4.0 10^3/uL Monocytes # (Auto) 1.0 0.0-1.0 10^3/uL Eosinophils # (Auto) 0.1 0.0-0.3 10^3/uL Basophils # (Auto) 0.0 0.0-0.1 10^3/uL Immature Granulocyte # (Auto) 0.2 H 0.0-0.1 10^3/uL Neutrophils % (Manual) 88 % Lymphocytes % (Manual) 2 % Monocytes % (Manual) 7 % Eosinophils % (Manual) 2 % Basophils % (Manual) 0 % Band Neutrophils 1 % Sodium Level 135 135-145 MMOL/L Potassium Level 4.9 3.6-5.0 MMOL/L Chloride Level 102 98-107 MMOL/L Carbon Dioxide Level 19 L 21-32 MMOL/L Anion Gap 14 5-14 MMOL/L Blood Urea Nitrogen 44 H 7-18 MG/DL Creatinine 2.46 H 0.60-1.30 MG/DL Estimat Glomerular Filtration Rate 27 BUN/Creatinine Ratio 18 Glucose Level 357 H 70-105 MG/DL Lactic Acid Level 3.24 *H 0.50-2.00 MMOL/L Calcium Level 9.0 8.5-10.1 MG/DL Corrected Calcium 9.4 8.5-10.1 MG/DL Magnesium Level 2.0 1.6-2.4 MG/DL Total Bilirubin 0.3 0.1-1.0 MG/DL Aspartate Amino Transf (AST/SGOT) 14 5-34 U/L Alanine Aminotransferase (ALT/SGPT) 19 0-55 U/L Alkaline Phosphatase 110 40-136 U/L C-Reactive Protein 25.12 H <0.50 MG/DL Total Protein 6.9 6.4-8.2 GM/DL Albumin 3.5 3.2-4.5 GM/DL Influenza Type A (RT-PCR) Not Detected Not Detecte Influenza Type B (RT-PCR) Not Detected Not Detecte SARS-CoV-2 RNA (RT-PCR) Not Detected Not Detecte Venous Blood pH 7.38 7.31-7.41 Venous Blood Partial Pressure CO2 37 L 40-52 MMHG Venous Blood HCO3 22 22-28 MMOL/L Urine Color YELLOW Urine Clarity CLEAR Urine pH 6.0 5-9 Urine Specific Gardner 1.025 H 1.016-1.022 Urine Protein 2+ H NEGATIVE Urine Glucose (UA) 3+ H NEGATIVE Urine Ketones NEGATIVE NEGATIVE Urine Nitrite NEGATIVE NEGATIVE Urine Bilirubin NEGATIVE NEGATIVE Urine Urobilinogen 0.2 < = 1.0 MG/DL Urine Leukocyte Esterase NEGATIVE NEGATIVE Urine RBC (Auto) 1+ H NEGATIVE Urine RBC RARE /HPF Urine WBC RARE /HPF Urine Squamous Epithelial Cells NONE /HPF Urine Crystals NONE /LPF Urine Bacteria NEGATIVE /HPF Urine Casts NONE /LPF Urine Mucus NEGATIVE /LPF Urine Culture Indicated NO Test 07/09/22 18:30 Range/Units Lactic Acid Level 4.63 *H 0.50-2.00 MMOL/L My Orders Orders - LANGFORD,ASNDER L DO Cbc With Automated Diff (07/09/22 15:50) Comprehensive Metabolic Panel (07/09/22 15:50) Lactic Acid Analyzer (07/09/22 15:50) Magnesium (07/09/22 15:50) Rapid Strep A Screen (07/09/22 15:50) Ua Culture If Indicated (07/09/22 15:50) Influenza A And B By Pcr (07/09/22 15:50) Crp Fs (07/09/22 15:50) Covid 19 Inhouse Test (07/09/22 15:50) Blood Culture (07/09/22 15:50) Ondansetron Injection (Zofran Injectio (07/09/22 16:00) Ns Iv 1000 Ml (Sodium Chloride 0.9%) (07/09/22 15:55) Famotidine Injection (Pepcid Injection) (07/09/22 15:55) Diphenhydramine Injection (Benadryl Inje (07/09/22 15:55) Dexamethasone Injection (Decadron Inje (07/09/22 16:00) Venous Blood Gas (07/09/22 16:02) Manual Differential (07/09/22 15:55) Ceftriaxone 1 Gm Pre-Mix (Rocephin 1 Gm (07/09/22 16:45) Ns Iv 1000 Ml (Sodium Chloride 0.9%) (07/09/22 17:16) Nicotine Patch (Nicoderm Patch) (07/09/22 19:30) Medications Given in ED Current Medications Medications Dose Ordered Sig/Nacho Route Start Time Stop Time Status Last Admin Dose Admin Nicotine 21 mg ONCE ONCE TD 07/09/22 19:30 07/09/22 19:31 DC 07/09/22 19:34 21 MG Vital Signs/I&O 07/09/22 07/09/22 15:45 21:00 Temp 36.7 Pulse 103 94 Resp 16 20 B/P (MAP) 188/63 (104) 181/87 Pulse Ox 98 94 O2 Delivery Room Air 07/10/22 00:00 Intake Total 2050 ml Balance 2050 ml Progress Progress Note : Progress Note Patient's labs were ordered reviewed and evaluated by me. Patient has significantly elevated white count, CRP and lactic acid. Patient was treated with Rocephin, Decadron, Benadryl, famotidine and IV fluids. There is concern of potential of Benjamin-Bernabe syndrome versus other etiology of the rash with sepsis. At this time he does not have any meningeal symptoms very unlikely meningococcal. Patient needs transfer to higher level of care with dermatology. I contacted 6 hospitals including [facility], [facility], [facility], [facility], and [facility] with asked final excepting of Luba Estrada. Patient accepted by Dr. Welsh at [facility] for transfer to the ICU for further inpatient management. I did spend greater than 60 minutes treating patient along with phone calls attempting transfer for medical management and critical care time. Patient is stable upon transfer via EMS. Departure Impression Primary Impression: Sepsis Qualified Codes: A41.9 - Sepsis, unspecified organism; R65.20 - Severe sepsis without septic shock; G93.40 - Encephalopathy, unspecified Additional Impression: Rash and nonspecific skin eruption Disposition: [facility] Condition: Stable Transfer Transfer Reason: Exceeds level of care Time Spoke to Accepting Phy: 18:00 Transfer Progress Notes Patient accepted to ICU by Dr. Welsh Transfer Facility: [facility] Method of Transfer: EMS Departure-Patient Inst. Referrals: RANDALL OMER APRN (PCP) Primary Care Physician [facility] (Family) Primary Care Physician SANDER LANGFORD DO Jul 09, 2022 15:44
[2022-07-09] MEDS ORDERED: diphenhydrAMINE 50 MG/ML INJ (BENADRYL) IV STA (15:55)
[2022-07-09] MEDS ORDERED: FAMOTIDINE 20MG/2ML IV (PEPCID) IV STA (15:55)
[2022-07-09] MEDS ORDERED: NS IV 1000 ML 1,000 ML IV STA ×2 (15:55→17:16)
[2022-07-09] MEDS ORDERED: ONDANSETRON 4 MG/2 ML (SDV) Z0FRAN IVP ONE (16:00)
[2022-07-09 16:07] LABS: BASOPHILS % (AUTO) 0 % (0-10); EOSINOPHILS # (AUTO) 0.1 10^3/uL (0.0-0.3); EOSINOPHILS % (AUTO) 1 % (0-10); HEMATOCRIT 35 % (40-54); HEMOGLOBIN 11.6 g/dL (13.3-17.7); LYMPHOCYTES # (AUTO) 0.7 10^3/uL (1.0-4.0); LYMPHOCYTES % (AUTO) 3 % (12-44); MEAN CORPUSCULAR HEMOGLOBIN 29 pg (25-34); MEAN CORPUSCULAR HGB CONC 33 g/dL (32-36); MEAN CORPUSCULAR VOLUME 88 fL (80-99); MEAN PLATELET VOLUME 10.6 fL (9.0-12.2); MONOCYTES % (AUTO) 5 % (0-12); NEUTROPHILS # (AUTO) 19.6 10^3/uL (1.8-7.8); NEUTROPHILS % (AUTO) 91 % (42-75); PLATELET COUNT 216 10^3/uL (130-400); WHITE BLOOD COUNT 21.7 10^3/uL (4.3-11.0)
[2022-07-09 16:36] LABS: POTASSIUM 4.9 MMOL/L (3.6-5.0)
[2022-07-09 16:37] LABS: ALBUMIN 3.5 GM/DL (3.2-4.5); BILIRUBIN,TOTAL 0.3 MG/DL (0.1-1.0); CREATININE SERUM 2.46 MG/DL (0.60-1.30); TOTAL PROTEIN 6.9 GM/DL (6.4-8.2)
[2022-07-09 16:43] LABS: BILIRUBIN,URINE NEGATIVE (NEGATIVE); CLARITY,URINE CLEAR; COLOR,URINE YELLOW; GLUCOSE, URINE (UA) 3+ (NEGATIVE); KETONES,URINE NEGATIVE (NEGATIVE); LEUKOCYTE ESTERASE ,URINE NEGATIVE (NEGATIVE); NITRITE,URINE NEGATIVE (NEGATIVE); PROTEIN,URINE 2+ (NEGATIVE)
[2022-07-09] MEDS ORDERED: cefTRIAXone 1 GM PRE-MIX 50 ML IV STA (16:45)
[2022-07-09 16:48] LABS: BACTERIA,URINE NEGATIVE /HPF; RBC,URINE RARE /HPF; WBC,URINE RARE /HPF
[2022-07-09 16:58] LABS: BAND NEUTROPHILS 1 %; BASOPHILS % (MANUAL) 0 %; EOSINOPHILS % (MANUAL) 2 %; LYMPHOCYTES % (MANUAL) 2 %; MONOCYTES % (MANUAL) 7 %; NEUTROPHILS % (MANUAL) 88 %
[2022-07-09] MEDS ORDERED: NICOTINE 21 MG (NICODERM) PATCH TD ONE (19:30)
[2022-07-09 21:00] VITALS: BP 181/87
== END 2022-07-09 21:00 | disposition short-term general hospital (02) ==
LOC: EDUNIT# 15:37 → ER FS 15:40
DX: A41.9 Sepsis, unspecified organism (principal); R21 Rash and other nonspecific skin eruption; R74.02 Elevation of levels of lactic acid dehydrogenase [LDH]; E11.9 Type 2 diabetes mellitus without complications; Z20.822 Contact with and (suspected) exposure to COVID-19
CPT/HCPCS: 36415; 80053; 81000; 82805; 83605; 83735; 85007; 85027; 86141; 87040; 87430; 87636

== ENCOUNTER 2022-07-23 21:36 | Emergency (ER) | payer MEDICARE ==
[~2022-07-23] VITALS: Ht 167.7 cm; Wt 69.0 kg
--- NOTE | 2022-07-23 22:04 | Diagnostic Imaging Report ---
CHEST 1 VIEW AP/PA ONLY Indication: Shortness of breath Comparison: 04/07/2022 Findings: Bilateral perihilar hazy consolidations have developed. Small pleural effusions may be present. No pneumothorax. Borderline cardiomegaly. Impression: 1. Moderate pulmonary edema has developed. Dictated by: Dictated on workstation # [id number]
[2022-07-23 22:15] LABS: BASOPHILS % (AUTO) 0 % (0-10); EOSINOPHILS % (AUTO) 0 % (0-10); HEMATOCRIT 30 % (40-54); LYMPHOCYTES # (AUTO) 1.9 10^3/uL (1.0-4.0); LYMPHOCYTES % (AUTO) 8 % (12-44); MEAN CORPUSCULAR HEMOGLOBIN 30 pg (25-34); MEAN CORPUSCULAR HGB CONC 33 g/dL (32-36); MEAN CORPUSCULAR VOLUME 89 fL (80-99); MONOCYTES # (AUTO) 2.3 10^3/uL (0.0-1.0); MONOCYTES % (AUTO) 10 % (0-12); NEUTROPHILS # (AUTO) 19.9 10^3/uL (1.8-7.8); NEUTROPHILS % (AUTO) 81 % (42-75); PLATELET COUNT 247 10^3/uL (130-400); WHITE BLOOD COUNT 24.4 10^3/uL (4.3-11.0)
[2022-07-23] MEDS ORDERED: FUROSEMIDE 40 MG/4 ML INJ (LASIX) IVP ONE (22:15)
--- NOTE | 2022-07-23 22:23 | ED General ---
General Chief Complaint: Respiratory Problems Stated Complaint: FALL Source of Information: Patient (JOE POWERS MD) History of Present Illness Date Seen by Provider: Jul 23, 2022 Time Seen by Provider: 21:36 Initial Comments 72-year-old male presenting from home via EMS with complaints of increased weakness and shortness of breath. He had recently been admitted at [facility] for difficulty breathing. He has been on antibiotics and steroids in the last 2 weeks. He felt like he was getting more short of breath over the last several days and was weaker. His oxygen saturation was in the mid 80s for EMS when they first arrived. With transport he was increased to 6 Lpm and was 100% on arrival to the emergency department. We are able to wean down his supplemental oxygen to 4 L. He denied having fever or chills. He did not feel like his coughing was increased from usual. He just felt like he had labored breathing especially if he tried to lay down or with exertion. Timing/Duration: 3-4 Days Severity: Severe Modifying Factors: worse with Movement Associated Systoms: No Chest Pain; Cough; No Diaphoresis, No Fever/Chills, No Headaches; Loss of Appetite, Malaise; No Nausea/Vomiting, No Rash, No Seizure; Shortness of Air; No Syncope; Weakness (JOE POWERS MD) Allergies and Home Medications Allergies Coded Allergies: codeine (Verified Allergy, Unknown, 07/09/21) iodine (Verified Allergy, Unknown, 07/01/19) Patient Home Medication List Home Medication List Reviewed: Yes (JOE POWERS MD) Albuterol Sulfate (Ventolin Hfa) 1 Puff Puff, 2 PUFF IH Q6H PRN for WHEEZING, (Reported) Entered as Reported by: MONICA CORTEZ on 10/04/19 1051 Atorvastatin Calcium (Atorvastatin Calcium) 80 Mg Tablet, 80 MG PO HS, (Reporte d) Entered as Reported by: LYNDA REESE on 07/01/19 2255 Cholecalciferol (Vitamin D3) (Vitamin D3) 125 Mcg Tablet, 125 MCG PO WEEK, (Reported) Entered as Reported by: MONICA CORTEZ on 07/09/21 0904 Citalopram Hydrobromide (Citalopram HBr) 20 Mg Tablet, 20 MG PO DAILY, (Reported) Entered as Reported by: LYNDA REESE on 07/01/19 2255 Clopidogrel Bisulfate (Clopidogrel) 75 Mg Tablet, 75 MG PO DAILY, (Reported) Entered as Reported by: MONICA CORTEZ on 07/09/21 0856 Fluticasone Propionate (Flonase Allergy Relief) 9.9 Ml [place].susp, 1 SPRAY NSEACH DAILY, (Reported) Entered as Reported by: MONICA CORTEZ on 10/04/19 1051 Insulin Aspart (Novolog) 300 Units/3 Ml Cartridge, 0-30 UNITS SQ AC, (Reported) Entered as Reported by: MONICA CORTEZ on 07/09/21 0856 Lisinopril (Lisinopril) 10 Mg Tablet, 10 MG PO DAILY, (Reported) Entered as Reported by: LYNDA REESE on 07/01/192254 Zolpidem Tartrate (Zolpidem Tartrate) 5 Mg Tablet, 5 MG PO HS, (Reported) Entered as Reported by: BRIAN COPELAND on 05/13/20 1116 Review of Systems Review of Systems Constitutional: see HPI EENTM: No nose congestion Respiratory: see HPI Cardiovascular: No chest pain Gastrointestinal: see HPI Genitourinary: no symptoms reported Musculoskeletal: no symptoms reported Skin: No rash Psychiatric/Neurological: See HPI, Weakness (JOE POWERS MD) Past Jzabsbg-Iwfuic-Zogzhh Hx Immunizations Up To Date First/Initial COVID19 Vaccinat: YES Second COVID19 Vaccination Martin: YES Third COVID19 Vaccination Date: YES (JOE POWERS MD) Seasonal Allergies Seasonal Allergies: No (JOE POWERS MD) Past Medical History Surgery/Hospitalization HX: VA/CAD, CABG Quad vessel 1999, CVA 2019, PVD, Bilateral Fem-pop, DM, Hyperlipidemia, CKD Stage 3 Surgeries: Yes (bilat fem-pop) Cardiac, CABG, Coronary Stent Respiratory: No Currently Using CPAP: No Currently Using BIPAP: No Cardiac: Yes (cabg) Coronary Artery Disease, Heart Attack, High Cholesterol, Hypertension Neurological: Yes TIA Genitourinary: Yes Renal Failure Gastrointestinal: Yes (hx of dysphageal stricture, ) Nieves's Esophagus Musculoskeletal: No Endocrine: Yes Diabetes, Insulin dep HEENT: No Cancer: No Psychosocial: No Integumentary: No Blood Disorders: No (JOE POWERS MD) Family Medical History Cancer, CAD Over 55 Years Old, Diabetes, Hypertension (JOE POWERS MD) Physical Exam Vital Signs Vital Signs - First Documented (CANDACE MALONEY MD) Vital Signs Capillary Refill : (JOE POWERS MD) Height, Weight, BMI Height: '" Weight: lbs. oz. kg; 23.00 BMI Method: General Appearance: Chronically ill, Mild Distress HEENT: PERRL/EOMI, Pharynx Normal Neck: Full Range of Motion, Normal Inspection, Supple Respiratory: Chest Non Tender, Accessory Muscle Use, Decreased Breath Sounds, Rales Cardiovascular: Regular Rate, Rhythm, Normal Peripheral Pulses Gastrointestinal: Normal Bowel Sounds, No Pulsatile Mass, Non Tender, Soft Extremity: Normal Capillary Refill, Pedal Edema Neurologic/Psychiatric: Alert, Oriented x3 Skin: Normal Color, Warm/Dry (JOE POWERS MD) Focused Exam Lactate Level 07/23/22 22:00: Lactic Acid Level 1.20 (CANDACE MALONEY MD) Lactic Acid Level Laboratory Tests Test 07/23/22 22:00 Lactic Acid Level 1.20 MMOL/L (0.50-2.00) (CANDACE MALONEY MD) Progress/Results/Core Measures Suspected Sepsis SIRS Temperature: Pulse: Respiratory Rate: Laboratory Tests 07/23/22 22:00: White Blood Count 24.4H Blood Pressure / Mean: 07/23/22 22:00: Lactic Acid Level 1.20 Laboratory Tests 07/23/22 22:00: Creatinine 2.26H, Platelet Count 247, Total Bilirubin 0.3 07/24/22 07:32: Creatinine 2.32H (JOE POWERS MD) Results/Orders Lab Results Laboratory Tests Test 07/23/22 22:00 07/24/22 07:32 07/24/22 08:40 Range/Units White Blood Count 24.4 H 4.3-11.0 10^3/uL Red Blood Count 3.38 L 4.30-5.52 10^6/uL Hemoglobin 10.0 L 13.3-17.7 g/dL Hematocrit 30 L 40-54 % Mean Corpuscular Volume 89 80-99 fL Mean Corpuscular Hemoglobin 30 25-34 pg Mean Corpuscular Hemoglobin Concent 33 32-36 g/dL Red Cell Distribution Width 14.6 H 10.0-14.5 % Platelet Count 247 130-400 10^3/uL Mean Platelet Volume 11.0 9.0-12.2 fL Immature Granulocyte % (Auto) 1 % Neutrophils (%) (Auto) 81 H 42-75 % Lymphocytes (%) (Auto) 8 L 12-44 % Monocytes (%) (Auto) 10 0-12 % Eosinophils (%) (Auto) 0 0-10 % Basophils (%) (Auto) 0 0-10 % Neutrophils # (Auto) 19.9 H 1.8-7.8 10^3/uL Lymphocytes # (Auto) 1.9 1.0-4.0 10^3/uL Monocytes # (Auto) 2.3 H 0.0-1.0 10^3/uL Eosinophils # (Auto) 0.0 0.0-0.3 10^3/uL Basophils # (Auto) 0.0 0.0-0.1 10^3/uL Immature Granulocyte # (Auto) 0.3 H 0.0-0.1 10^3/uL Neutrophils % (Manual) 78 % Lymphocytes % (Manual) 8 % Monocytes % (Manual) 12 % Band Neutrophils 1 % Reactive Lymphocytes 1 % Platelet Estimate NORMAL Poikilocytosis MODERATE Crenated Cell SLIGHT Elliptocytes SLIGHT Rouleau MOD Schistocytes SLIGHT Blood Morphology Comment ABNORMAL Sodium Level 137 140 135-145 MMOL/L Potassium Level 5.6 H 4.8 3.6-5.0 MMOL/L Chloride Level 106 104 98-107 MMOL/L Carbon Dioxide Level 22 26 21-32 MMOL/L Anion Gap 9 10 5-14 MMOL/L Blood Urea Nitrogen 50 H 49 H 7-18 MG/DL Creatinine 2.26 H 2.32 H 0.60-1.30 MG/DL Estimat Glomerular Filtration Rate 30 29 BUN/Creatinine Ratio 22 21 Glucose Level 306 H 269 H 70-105 MG/DL Lactic Acid Level 1.20 0.50-2.00 MMOL/L Calcium Level 8.0 L 8.6 8.5-10.1 MG/DL Corrected Calcium 8.7 8.5-10.1 MG/DL Magnesium Level 1.9 1.6-2.4 MG/DL Total Bilirubin 0.3 0.1-1.0 MG/DL Aspartate Amino Transf (AST/SGOT) 16 5-34 U/L Alanine Aminotransferase (ALT/SGPT) 73 H 0-55 U/L Alkaline Phosphatase 98 40-136 U/L Troponin I < 0.30 <0.30 NG/ML C-Reactive Protein 7.55 H <0.50 MG/DL Pro-B-Type Natriuretic Peptide 97041.0 H <125.0 PG/ML Total Protein 5.7 L 6.4-8.2 GM/DL Albumin 3.1 L 3.2-4.5 GM/DL Glucometer 245 H 70-110 MG/DL (CANDACE MALONEY MD) My Orders Orders - CANDACE MALONEY MD Basic Metabolic Panel (07/24/22 07:30) Furosemide Injection (Lasix Injection) (07/24/22 07:30) Catheter(Urinary) Insert & Ass 03,15 (07/24/22 06:56) Lidocaine 2% (Urojet) (Xylocaine Urojet) (07/24/22 07:00) Metoprolol Tartrate (Ir) Tab (Lopressor (07/24/22 10:45) Clopidogrel Tablet (Plavix Tablet) (07/24/22 10:45) Chest 1 View Ap/Pa Only (07/24/22 12:07) (CANDACE MALONEY MD) Medications Given in ED Current Medications Medications Dose Ordered Sig/Nacho Route Start Time Stop Time Status Last Admin Dose Admin Clopidogrel Bisulfate 75 mg ONCE ONCE PO 07/24/22 10:45 07/24/22 10:46 DC 07/24/22 10:48 75 MG Furosemide 40 mg ONCE ONCE IVP 07/24/22 07:30 07/24/22 07:31 DC 07/24/22 07:49 40 MG Metoprolol Tartrate 50 mg ONCE ONCE PO 07/24/22 10:45 07/24/22 10:46 DC 07/24/22 10:48 50 MG (CANDACE MALONEY MD) Vital Signs/I&O 07/23/22 07/23/22 21:42 21:42 Temp 37.2 Pulse 70 Resp 20 B/P (MAP) 173/73 (106) Pulse Ox 94 94 O2 Delivery Nasal Cannula Nasal Cannula O2 Flow Rate 3.00 3.00 (CANDACE MALONEY MD) Vital Signs/I&O Capillary Refill : (JOE POWERS MD) Progress Note #1: Progress Note Potential diagnosis of CHF exacerbation, pneumonia, COPD exacerbation, anemia, pulmonary mass. Send labs for complete blood count, comprehensive metabolic profile, troponin, proBNP, magnesium, chest x-ray to look for signs of heart failure infection, electrocardiogram for his shortness of breath. Cardiac telemetry monitoring showing sinus tachycardia with heart rate around 100 bpm. Progress Note #2: Progress Note Complete blood count came back with elevated white blood cells at 24.4 thousand with a normal differential. He had recently been on steroids and this certainly may have increased his white blood cell count. In my opinion his chest x-ray showed increased pulmonary vascular congestion but no definite infiltrate. His cardiac enzymes were negative on troponin but greatly elevated for his proBNP. proBNP was 11,538. His previous proBNP from January was 2253. He had stable chronic renal insufficiency at 2.2. With signs of heart failure on his chest x- ray as well as proBNP being greatly elevated will administer Lasix 80 mg IV x1. Progress Note #3: Progress Note Patient was having good diuresis with the Lasix dose. His breathing was easing up some and he was able to rest in the room. I advised patient and spouse that he would need admitted for his CHF to get diuresed. Patient and spouse requesting to go to [facility] since he has cardiology and specialty services there. I had to call [facility] in [place] to check about possible transfer the patient and they advised me that the were on diversion for medical and monitored beds and had over 40 patients waiting in the ER. When I updated the patient and spouse about this she voiced that patient was recently at [facility] and she would be interested in trying to go back there. We will call and check to see if they have beds and availability with capacity at [facility]. @0003: And spoke with Jim and the bottle house cleaners supervisor at [facility]. He took some basic information and advised me he would have JAI Brown the remaining transfer nurse to call me back. 0019 I spoke with JAI Brown at the [facility] transfer line. She took basic information on the patient and will see the COVID back with the hospitalist. The ER is currently full but they were excepting transfers but would have to wait until a bed became open which might be after discharges in the morning. 0123 Dr. Julian hospitalist on-call for [facility] called back and I reviewed the case and presentation with her. d/w Dr. Julian the hospitalist adoption specialist for [place] Natalie. Reviewed his presentation and labs and CXR supporting his finding of acute exacerbation of CHF. He had elevated WBC count to 24.4 with a normal differential so I felt the WBC count was from his recent steroids he had over the last 2 weeks more than from an infection. His comprehensive metabolic profile did not show chronic renal insufficiency with his creatinine at baseline of 2.2. His troponin was negative at less than 0.3. He also had a negative lactic acid at 1.2. His proBNP was 11,538 and in January 2022 was 2253. He has chest x-ray showed increased pulmonary vascular congestion consistent with CHF exacerbation. An acute infiltrate was not visualized. Patient was maintaining his oxygen and blood pressure with the supplemental nasal cannula oxygen here. He had received Lasix 80 mg IV x1 and has had some diuresis with that. She accepted the patient for inpatient admission for telemetry bed. Was advised by JAI Brown, from the transfer center that they were tight on beds and she could not say exactly when patient could be given a room assignment but he would be on the list to have a bed assigned as soon as one was available. 0700 patient rested well overnight. He does have further diuresis and did have an accident in the bed where he was unable to use the urinal. His breathing continues to improve but he still has labored breathing and Rales on auscultation. His cardiac telemetry was showing heart rate in the 90s to 100 range and appeared to still be sinus rhythm. Patient still waiting room placement to [facility]. Will transfer care to Dr. Maloney with the dayshift in case he needed anything further prior to transfer. (JOE POWERS MD) Progress Note : Progress Note Received the patient in signout. Ordered repeat BMP, redosed lasix at 40mg IV this morning. Contacted [facility] for an update at 10:30am on 07/24. They state he is next in line to receive a bed with the next discharged patient from there. They were unable to give an estimate because sometimes even after discharge it can take a while for the patient to leave. I was able to titrate the patient's oxygen down to room air. Monitored him for several hours like this. He is breathing comfortably, I was able to ambulate hi m around the room, well-appearing at this time. He states he feels almost completely better. He has had multiple liters of urine out, and I suspect his symptoms are just improving. I did a repeat chest x-ray with significant improvement in the pulmonary edema that was seen last night. I discussed continuing with the admission versus going home with a prescription for Lasix. Patient is adamant that he wants to go home. His family is more concerned and they somewhat want him to stay, but the patient is alert and oriented, he has decisional capacity at this time, and he does not want to be admitted to the hospital anymore. I will send a prescription for Lasix as well as potassium to get him through a couple weeks when he has follow-up with a cosmetologist apprentice as an outpatient. I did discuss the typical course with heart failure once patients are admitted to the hospital, they typically continue to decline, often have readmissions. I discussed if it is his wish to not be admitted to the hospital, and he wants to live his life at home, hospice is an option as well. The patient will think about this. He was then discharged home in stable condition with strict return precautions. (CANDACE MALONEY MD) ECG Initial ECG Impression Date: Jul 23, 2022 Initial ECG Impression Time: 22:03 Initial ECG Rate: 66 Initial ECG Rhythm: Normal Sinus Initial ECG Comparisson: Unchanged (01/22/2022) Comment On my interpretation of his electrocardiogram shows a heart rate of 66 bpm and is sinus rhythm. He does have a short NH interval of 116 ms. He has a right bundle branch block. QT interval 411 ms with a QTc interval 432 ms. He has no acute ST elevation. Overall appears similar to tracing from January 22, 2022. (JOE POWERS MD) Diagnostic Imaging Diagonstic Imaging: Xray Comments [facility]. [place], [place] NAME: JCARLOS CADE [facility] REC#: [id number] PT STATUS: REG ER : 1950 PHYSICIAN: JOE POWERS MD ADMIT DATE: 07/23/22/ER FS Signed Date of Exam:07/23/22 CHEST 1 VIEW AP/PA ONLY CHEST 1 VIEW AP/PA ONLY Indication: Shortness of breath Comparison: 04/07/2022 Findings: Bilateral perihilar hazy consolidations have developed. Small pleural effusions may be present. No pneumothorax. Borderline cardiomegaly. Impression: 1. Moderate pulmonary edema has developed. Dictated by: Dictated on workstation # [id number] Dict: 07/23/222201 Trans: 07/23/222202 [facility] [id number] Interpreted by: CLAU OCHOA MD Electronically signed by: CLAU OCHOA MD 07/23/222202 Reviewed: Reviewed by Me (JOE POWERS MD) Comments NAME: JCARLOS CADE [facility] REC#: [id number] PT STATUS: REG ER : 1950 PHYSICIAN: CANDACE MALONEY MD ADMIT DATE: 07/23/22/ER FS Draft Date of Exam:07/24/22 CHEST 1 VIEW AP/PA ONLY CLINICAL INDICATION: Patient with shortness of breath. EXAM: Portable chest x-ray upright view. COMPARISON: Chest x-ray dated 07/23/2022. FINDINGS: Lungs/pleura: There is interval improved aeration of both lungs. There is increased lung markings throughout both lungs. Groundglass opacities involving both lung bases which may represent atelectasis or infiltrates. There is no pneumothorax. There is no pleural effusion. Mediastinum: Unremarkable. Pulmonary vasculature: Unremarkable. Heart: Heart size within normal limits. There are postop changes to the chest consistent with CABG. Bones/extrathoracic soft tissue: There are degenerative spurs involving the thoracic spine. IMPRESSION: 1: There is interval improved aeration involving both lungs with residual mild bibasilar atelectasis versus infiltrates. Increased lung markings throughout both lungs are again seen. 2: Otherwise, the remainder of this exam shows no significant interval change compared to the prior study of comparison. Dictated on workstation # [id number] Dict: 07/24/228 Trans: 07/24/221232 [facility] [id number] Interpreted by: CASSI WILKERSON MD Electronically signed by: (CANDACE MALONEY MD) Transfer of Care Transfer of Care Time: 07:00 Care transferred to: Dr. Maloney (JOE POWERS MD) Departure Impression Primary Impression: Acute exacerbation of CHF (congestive heart failure) Qualified Codes: I50.9 - Heart failure, unspecified Additional Impression: Weakness Disposition: HOME, SELF-CARE Condition: Improved Transfer Transfer Reason: Exceeds level of care (Cardiology and Pulmonology services) Time Spoke to Accepting Phy: 01:23 Transfer Progress Notes d/w Dr. Julian the hospitalist adoption specialist for [facility]. Reviewed his presentation and labs and CXR supporting his finding of acute exacerbation of CHF. He had elevated WBC count to 24.4 with a normal differential so I felt the WBC count was from his recent steroids he had over the last 2 weeks more than from an infection. His comprehensive metabolic profile did not show chronic renal insufficiency with his creatinine at baseline of 2.2. His troponin was negative at less than 0.3. He also had a negative lactic acid at 1.2. His proBNP was 11,538 and in January 2022 was 2253. He has chest x-ray showed i ncreased pulmonary vascular congestion consistent with CHF exacerbation. An acute infiltrate was not visualized. Patient was maintaining his oxygen and blood pressure with the supplemental nasal cannula oxygen here. He had received Lasix 80 mg IV x1 and has had some diuresis with that. She accepted the patient for inpatient admission for telemetry bed. Was advised by JAI Brown, from the transfer center that they were tight on beds and she could not say exactly when patient could be given a room assignment but he would be on the list to have a bed assigned as soon as one was available.. Transfer Facility: [facility] Method of Transfer: EMS (JOE POWERS MD) Departure-Patient Inst. Decision time for Depature: 13:15 (CANDACE MALONEY MD) Referrals: RANDALL OMER APRN (PCP) Primary Care Physician [facility] (Family) Primary Care Physician Patient Instructions: Heart Failure ED Add. Discharge Instructions: You were seen in the emergency department for increasing shortness of breath in the setting of heart failure. Last night you did have a lot of fluid on your lungs, it appeared better on your chest x-ray today. You will be on Lasix daily for the next couple weeks until you can follow-up with your cosmetologist apprentice. If you are not feeling better, having extra fluid on your legs, increasing shortness of breath, then you can take an extra dose of her Lasix. If your oxygen is less than 89% consistently even with rest and taking deep breaths, then please come back to the ER. Also if you have any other concerns and of course you can come back to the ER. Scripts Doxycycline Hyclate (Doxycycline Hyclate) 100 Mg Tablet 100 MG PO BID for 7 Days, #14 TAB 0 Refills Prov: CANDACE MALONEY MD 07/24/22 Potassium Chloride (Potassium Chloride) 20 Meq Tab.er.prt 20 MEQ PO DAILY for 14 Days, #14 TAB Prov: CANDACE MALONEY MD 07/24/22 Furosemide (Lasix) 40 Mg Tablet 40 MG PO DAILY for 14 Days, #14 TAB Prov: CANDACE MALONEY MD 07/24/22 Work/School Note: Family Work Note Patient Received Medical Care In the Emergency Department On: Jul 24, 2022 Patient Will Be Able to Return to Work/School On: Jul 26, 2022 JOE POWERS MD Jul 23, 2022 22:23 CANDACE MALONEY MD Jul 24, 2022 10:31
[2022-07-23 22:45] LABS: POTASSIUM 5.6 MMOL/L (3.6-5.0)
[2022-07-23 22:46] LABS: ALBUMIN 3.1 GM/DL (3.2-4.5); BILIRUBIN,TOTAL 0.3 MG/DL (0.1-1.0); CREATININE SERUM 2.26 MG/DL (0.60-1.30); MAGNESIUM 1.9 MG/DL (1.6-2.4); TOTAL PROTEIN 5.7 GM/DL (6.4-8.2)
[2022-07-23 22:59] LABS: BAND NEUTROPHILS 1 %; LYMPHOCYTES % (MANUAL) 8 %; MONOCYTES % (MANUAL) 12 %; NEUTROPHILS % (MANUAL) 78 %
[2022-07-23 23:00] LABS: ELLIPT/OVALOCYTES SLIGHT; PLATELET ESTIMATE NORMAL; POIKILOCYTOSIS MODERATE; RBC MORPH ABNORMAL; REACTIVE LYMPHOCYTES 1 %
[2022-07-23 23:01] LABS: CRENATED RBC SLIGHT; ROULEAUX MOD; SCHISTOCYTES SLIGHT
[2022-07-24] MEDS ORDERED: RT-ALBUTEROL/IPRATROPIUM 3 ML (DUONEB) VIAL INH STA (01:13)
[2022-07-24] MEDS ORDERED: LIDOCAINE UROJET 2% GEL 10 ML PKG TOP ONE (07:00)
[2022-07-24] MEDS ORDERED: FUROSEMIDE 40 MG/4 ML INJ (LASIX) IVP ONE (07:30)
[2022-07-24 07:58] LABS: POTASSIUM 4.8 MMOL/L (3.6-5.0)
[2022-07-24 07:59] LABS: CALCIUM 8.6 MG/DL (8.5-10.1); CREATININE SERUM 2.32 MG/DL (0.60-1.30)
[2022-07-24] MEDS ORDERED: meTOprolol TARTRATE 25 MG (LOPRESSOR) TABLET PO ONE (10:45)
[2022-07-24] MEDS ORDERED: CLOPIDOGREL 75 MG (PLAVIX) TABLET PO ONE (10:45)
--- NOTE | 2022-07-24 12:35 | Diagnostic Imaging Report ---
CLINICAL INDICATION: Patient with shortness of breath. EXAM: Portable chest x-ray upright view. COMPARISON: Chest x-ray dated 07/23/2022. FINDINGS: Lungs/pleura: There is interval improved aeration of both lungs. There is increased lung markings throughout both lungs. Groundglass opacities involving both lung bases which may represent atelectasis or infiltrates. There is no pneumothorax. There is no pleural effusion. Mediastinum: Unremarkable. Pulmonary vasculature: Unremarkable. Heart: Heart size within normal limits. There are postop changes to the chest consistent with CABG. Bones/extrathoracic soft tissue: There are degenerative spurs involving the thoracic spine. IMPRESSION: 1: There is interval improved aeration involving both lungs with residual mild bibasilar atelectasis versus infiltrates. Increased lung markings throughout both lungs are again seen. 2: Otherwise, the remainder of this exam shows no significant interval change compared to the prior study of comparison. Dictated by: Dictated on workstation # [id number]
[2022-07-24] MEDS ORDERED: DOXY100T2 PO (13:17)
[2022-07-24] MEDS ORDERED: FURO-124 PO (13:17)
[2022-07-24] MEDS ORDERED: POTA-179 PO (13:17)
[2022-07-24 13:19] VITALS: BP 132/84
== END 2022-07-24 13:22 | disposition home or self-care (01) ==
LOC: EDUNIT# 21:36 → ER FS 21:37
DX: I13.0 Hypertensive heart and chronic kidney disease with heart failure and stage 1 through stage 4 chronic kidney disease, or unspecified chronic kidney disease (principal); E11.22 Type 2 diabetes mellitus with diabetic chronic kidney disease; I50.9 Heart failure, unspecified; N18.30 Chronic kidney disease, stage 3 unspecified; D72.829 Elevated white blood cell count, unspecified; Z79.4 Long term (current) use of insulin; Z95.1 Presence of aortocoronary bypass graft; Z79.899 Other long term (current) drug therapy
CPT/HCPCS: 36415; 71045; 80048; 80053; 82947; 83605; 83735; 83880; 84484; 85007; 85027; 86141; 87040; 93005; 93041; 94640

== ENCOUNTER 2022-10-07 23:06 | Emergency (ER) | payer MEDICARE, OTHER ==
[~2022-10-07 23:06] MED LIST changes: +DOXY100T2 PO; +FURO-124 PO; +POTA-179 PO
[2022-10-07 23:10] VITALS: BP 159/33
--- NOTE | 2022-10-07 23:17 | ED Dyspnea ---
General Stated Complaint: SOB|CONGESTION History of Present Illness Date Seen by Provider: October 07, 2022 Time Seen by Provider: 23:17 Initial Comments 72-year-old male presents with shortness of breath. Some congestion. The bit of a cough, patient reports this been going on for about 2 to 3 days. He took Lasix yesterday with minimal relief. Patient reports that he just has breathing problems recently just want to come and get checked out follow-up on it. Patient has not followed up with his primary care provider. Allergies and Home Medications Allergies Coded Allergies: codeine (Verified Allergy, Unknown, 07/09/21) iodine (Verified Allergy, Unknown, 07/01/19) Patient Home Medication List Home Medication List Reviewed: Yes Albuterol Sulfate (Ventolin Hfa) 1 Puff Puff, 2 PUFF IH Q6H PRN for WHEEZING, (Reported) Entered as Reported by: MONICA CORTEZ on 10/04/19 1051 Atorvastatin Calcium (Atorvastatin Calcium) 80 Mg Tablet, 80 MG PO HS, (Reported) Entered as Reported by: LYNDA REESE on 07/01/19 2255 Azithromycin (Azithromycin) 250 Mg Tablet, 250 MG PO UD Prescribed by: SANDER LANGFORD on 10/08/22 0049 Cholecalciferol (Vitamin D3) (Vitamin D3) 125 Mcg Tablet, 125 MCG PO WEEK, (Rep orted) Entered as Reported by: MONICA CORTEZ on 07/09/21 0904 Citalopram Hydrobromide (Citalopram HBr) 20 Mg Tablet, 20 MG PO DAILY, (Reported) Entered as Reported by: LYNDA REESE on 07/01/19 2255 Clopidogrel Bisulfate (Clopidogrel) 75 Mg Tablet, 75 MG PO DAILY, (Reported) Entered as Reported by: MONICA CORTEZ on 07/09/21 0856 Doxycycline Hyclate (Doxycycline Hyclate) 100 Mg Tablet, 100 MG PO BID Prescribed by: CANDACE MALONEY on 07/24/22 1317 Fluticasone Propionate (Flonase Allergy Relief) 9.9 Ml [place].susp, 1 SPRAY NSEACH DAILY, (Reported) Entered as Reported by: MONICA CORTEZ on 10/04/19 1051 Furosemide (Lasix) 40 Mg Tablet, 40 MG PO DAILY Prescribed by: CANDACE MALONEY on 07/24/22 1317 Insulin Aspart (Novolog) 300 Units/3 Ml Cartridge, 0-30 UNITS SQ AC, (Reported) Entered as Reported by: MONICA CORTEZ on 07/09/21 0856 Lisinopril (Lisinopril) 10 Mg Tablet, 10 MG PO DAILY, (Reported) Entered as Reported by: LYNDA REESE on 07/01/19 2255 Potassium Chloride (Potassium Chloride) 20 Meq Tab.er.prt, 20 MEQ PO DAILY Prescribed by: CANDACE MALONEY on 07/24/22 1317 Prednisone (Prednisone) 20 Mg Tab, 40 MG PO DAILY Prescribed by: SANDER LANGFORD on 10/08/22 0049 Zolpidem Tartrate (Zolpidem Tartrate) 5 Mg Tablet, 5 MG PO HS, (Reported) Entered as Reported by: BRIAN COPELAND on 05/13/20 1116 Review of Systems Review of Systems Constitutional: No chills, No fever Respiratory: cough, short of breath Gastrointestinal: no symptoms reported Genitourinary: no symptoms reported Musculoskeletal: no symptoms reported Skin: no symptoms reported Psychiatric/Neurological: No Symptoms Reported Past Nvxbbdx-Jplgbt-Olgebx Hx Immunizations Up To Date First/Initial COVID19 Vaccinat: YES Second COVID19 Vaccination Martin: YES Third COVID19 Vaccination Date: YES Seasonal Allergies Seasonal Allergies: No Past Medical History Surgery/Hospitalization HX: ID/CAD, CABG Quad vessel 1999, CVA 2019, PVD, Bilateral Fem-pop, DM, Hyperlipidemia, CKD Stage 3 Surgeries: Yes (bilat fem-pop) Cardiac, CABG, Coronary Stent Respiratory: No Currently Using CPAP: No Currently Using BIPAP: No Cardiac: Yes (cabg) Coronary Artery Disease, Heart Attack, High Cholesterol, Hypertension Neurological: Yes TIA Genitourinary: Yes Renal Failure Gastrointestinal: Yes (hx of dysphageal stricture, ) Nieves's Esophagus Musculoskeletal: No Endocrine: Yes Diabetes, Insulin dep HEENT: No Cancer: No Psychosocial: No Integumentary: No Blood Disorders: No Family Medical History Cancer, CAD Over 55 Years Old, Diabetes, Hypertension Physical Exam Vital Signs Vital Signs - First Documented 10/07/22 10/07/22 23:10 23:30 Temp 36.7 Pulse 67 Resp 16 B/P (MAP) 159/33 (75) Pulse Ox 93 O2 Delivery Room Air Capillary Refill : Height, Weight, BMI Height: '" Weight: lbs. oz. 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 Norm as Tested Skin: Normal Color, Warm/Dry Progress/Results/Core Measures Results/Orders Lab Results Laboratory Tests Test 10/07/22 23:27 Range/Units White Blood Count 12.0 H 4.3-11.0 10^3/uL Red Blood Count 3.58 L 4.30-5.52 10^6/uL Hemoglobin 10.0 L 13.3-17.7 g/dL Hematocrit 31 L 40-54 % Mean Corpuscular Volume 87 80-99 fL Mean Corpuscular Hemoglobin 28 25-34 pg Mean Corpuscular Hemoglobin Concent 32 32-36 g/dL Red Cell Distribution Width 14.7 H 10.0-14.5 % Platelet Count 240 130-400 10^3/uL Mean Platelet Volume 10.6 9.0-12.2 fL Immature Granulocyte % (Auto) 0 % Neutrophils (%) (Auto) 64 42-75 % Lymphocytes (%) (Auto) 21 12-44 % Monocytes (%) (Auto) 12 0-12 % Eosinophils (%) (Auto) 2 0-10 % Basophils (%) (Auto) 0 0-10 % Neutrophils # (Auto) 7.7 1.8-7.8 10^3/uL Lymphocytes # (Auto) 2.6 1.0-4.0 10^3/uL Monocytes # (Auto) 1.4 H 0.0-1.0 10^3/uL Eosinophils # (Auto) 0.3 0.0-0.3 10^3/uL Basophils # (Auto) 0.0 0.0-0.1 10^3/uL Immature Granulocyte # (Auto) 0.0 0.0-0.1 10^3/uL Sodium Level 140 135-145 MMOL/L Potassium Level 4.5 3.6-5.0 MMOL/L Chloride Level 107 98-107 MMOL/L Carbon Dioxide Level 21 21-32 MMOL/L Anion Gap 12 5-14 MMOL/L Blood Urea Nitrogen 30 H 7-18 MG/DL Creatinine 2.35 H 0.60-1.30 MG/DL Estimat Glomerular Filtration Rate 29 BUN/Creatinine Ratio 13 Glucose Level 127 H 70-105 MG/DL Calcium Level 8.5 8.5-10.1 MG/DL Corrected Calcium 9.0 8.5-10.1 MG/DL Total Bilirubin 0.3 0.1-1.0 MG/DL Aspartate Amino Transf (AST/SGOT) 11 5-34 U/L Alanine Aminotransferase (ALT/SGPT) 10 0-55 U/L Alkaline Phosphatase 112 40-136 U/L C-Reactive Protein 8.49 H <0.50 MG/DL Pro-B-Type Natriuretic Peptide 4310.0 H <125.0 PG/ML Total Protein 6.4 6.4-8.2 GM/DL Albumin 3.4 3.2-4.5 GM/DL My Orders Orders - LANGFORD,SANDER L DO Chest Pa/Lat (2 View) (10/07/22 23:21) Cbc With Automated Diff (10/07/22 23:21) Comprehensive Metabolic Panel (10/07/22 23:21) Probnp Fs (10/07/22 23:21) Crp Fs (10/07/22 23:21) Albuterol/Ipra Inhalation Soln (Duoneb I (10/07/22 23:30) Svn Small Volume Nebulizer (10/07/22 23:21) Methylprednisolone Sod Succ (Solu-Medrol (10/08/22 00:28) Medications Given in ED Current Medications Medications Dose Ordered Sig/Nacho Route Start Time Stop Time Status Last Admin Dose Admin Albuterol/ Ipratropium 3 ml ONCE ONCE INH 10/07/22 23:30 10/07/22 23:31 DC 10/07/22 23:29 3 ML Vital Signs/I&O 10/07/22 10/07/22 23:10 23:30 Temp 36.7 Pulse 67 Resp 16 B/P (MAP) 159/33 (75) Pulse Ox 93 O2 Delivery Room Air Progress Progress Note : Progress Note Patient's diagnostic studies were ordered reviewed and interpreted by me. Patient's labs show very minimal elevated white count. Patient BNP is significantly improved from his previous BNP. Patient's x-ray was ordered and reviewed with initial interpretation no obvious infiltrates or acute changes noted with final interpretation per radiology report. Patient's oxygen remained in the 92 and above on room air while in the ER. Patient was given a DuoNeb steroids and treated for what was likely a chronic shortness of breath with some mild COPD/bronchitis. We will treat him with less azithromycin and couple days of steroids. At this time I do not feel patient needs admission. Family did report that he was having "a hard time walking and could not walk however he we did ambulate him without difficulty at his baseline in the ER. Patient is a increased risk of morbidity and mortality based on his social determinants of health. His history was obtained from both the patient and his and his son. I did recommend they follow-up with his primary care provider in a couple days for recheck. Patient was stable upon discharge Diagnostic Imaging Diagonstic Imaging: Xray Plain Films/CT/US/NM/MRI: chest Comments CHEST PA/LAT (2 VIEW) CLINICAL INDICATIONS: Patient with shortness of breath and congestion. EXAM: Chest x-ray PA and lateral views. COMPARISON: Chest x-ray dated 07/24/2022. FINDINGS: Pulmonary vasculature and cardiac silhouette are within normal limits. There is interval slight blunting of the costophrenic angle regions posteriorly which may represent small pleural effusions. There is slight increased airspace opacities involving both lung bases which may represent atelectasis, but superimposed infiltrates cannot be completely excluded. There is no pneumothorax. There are postop change to the chest consistent with CABG. There are degenerative spurs involving the thoracic spine. IMPRESSION: 1: There is interval development of minimal sized bilateral pleural effusions. 2: There is minimal bibasilar atelectasis, but superimposed infiltrates cannot be completely excluded. Reviewed: Reviewed by Me, Reviewed/Discussed Departure Impression Primary Impression: Bronchitis Disposition: 01 HOME, SELF-CARE Condition: Stable (ERASED) Departure-Patient Inst. Referrals: RANDALL OMER APRN (PCP) Primary Care Physician [facility] (Family) Primary Care Physician Patient Instructions: Acute Bronchitis, Adult (DC), CHF Add. Discharge Instructions: Please follow-up with your primary care provider in 2 days for recheck of your symptoms Scripts Prednisone (Prednisone) 20 Mg Tab 40 MG PO DAILY, #6 TAB 0 Refills Prov: SANDER LANGFORD DO 10/08/22 Azithromycin (Azithromycin) 250 Mg Tablet 250 MG PO UD, #6 TAB TAKE 2 TABLETS ON DAY ONE THEN TAKE 1 TABLET DAILY FOR FOUR MORE DAYS Prov: SANDER LANGFORD DO 10/08/22 SANDER LANGFORD DO October 07, 2022 23:17
[2022-10-07] MEDS ORDERED: RT-ALBUTEROL/IPRATROPIUM 3 ML (DUONEB) VIAL INH ONE (23:30)
[2022-10-07 23:34] LABS: BASOPHILS % (AUTO) 0 % (0-10); EOSINOPHILS # (AUTO) 0.3 10^3/uL (0.0-0.3); EOSINOPHILS % (AUTO) 2 % (0-10); HEMATOCRIT 31 % (40-54); LYMPHOCYTES # (AUTO) 2.6 10^3/uL (1.0-4.0); LYMPHOCYTES % (AUTO) 21 % (12-44); MEAN CORPUSCULAR HEMOGLOBIN 28 pg (25-34); MEAN CORPUSCULAR HGB CONC 32 g/dL (32-36); MEAN CORPUSCULAR VOLUME 87 fL (80-99); MEAN PLATELET VOLUME 10.6 fL (9.0-12.2); MONOCYTES # (AUTO) 1.4 10^3/uL (0.0-1.0); MONOCYTES % (AUTO) 12 % (0-12); NEUTROPHILS # (AUTO) 7.7 10^3/uL (1.8-7.8); NEUTROPHILS % (AUTO) 64 % (42-75); PLATELET COUNT 240 10^3/uL (130-400)
[2022-10-07 23:59] LABS: POTASSIUM 4.5 MMOL/L (3.6-5.0)
[2022-10-08 00:01] LABS: CREATININE SERUM 2.35 MG/DL (0.60-1.30)
[2022-10-08 00:02] LABS: CALCIUM 8.5 MG/DL (8.5-10.1)
[2022-10-08 00:03] LABS: BILIRUBIN,TOTAL 0.3 MG/DL (0.1-1.0)
[2022-10-08 00:05] LABS: ALBUMIN 3.4 GM/DL (3.2-4.5); TOTAL PROTEIN 6.4 GM/DL (6.4-8.2)
[2022-10-08] MEDS ORDERED: methylPREDNISolone 125 MG (Solu-MEDROL) VIAL IV STA (00:28)
[2022-10-08] MEDS ORDERED: AZIT250T12 PO (00:49)
[2022-10-08] MEDS ORDERED: PRD20T PO (00:49)
--- NOTE | 2022-10-08 06:14 | Diagnostic Imaging Report ---
CLINICAL INDICATIONS: Patient with shortness of breath and congestion. EXAM: Chest x-ray PA and lateral views. COMPARISON: Chest x-ray dated 07/24/2022. FINDINGS: Pulmonary vasculature and cardiac silhouette are within normal limits. There is interval slight blunting of the costophrenic angle regions posteriorly which may represent small pleural effusions. There is slight increased airspace opacities involving both lung bases which may represent atelectasis, but superimposed infiltrates cannot be completely excluded. There is no pneumothorax. There are postop change to the chest consistent with CABG. There are degenerative spurs involving the thoracic spine. IMPRESSION: 1: There is interval development of minimal sized bilateral pleural effusions. 2: There is minimal bibasilar atelectasis, but superimposed infiltrates cannot be completely excluded. Dictated by: Dictated on workstation # [id number]
== END 2022-10-08 01:05 | disposition home or self-care (01) ==
LOC: EDUNIT# 23:06 → ER FS 23:08
DX: J40 Bronchitis, not specified as acute or chronic (principal); E11.9 Type 2 diabetes mellitus without complications; Z79.4 Long term (current) use of insulin
CPT/HCPCS: 36415; 71046; 80053; 83880; 85025; 86141; 94640

== ENCOUNTER 2022-10-18 19:00 | Emergency (ER) | payer MEDICARE, OTHER ==
[~2022-10-18] VITALS: Ht 165.1 cm; Wt 68.0 kg
[~2022-10-18 19:00] MED LIST changes: +AZIT250T12 PO; +PRD20T PO
[2022-10-18] MEDS ORDERED: RT-ALBUTEROL/IPRATROPIUM 3 ML (DUONEB) VIAL INH STA (19:10)
--- NOTE | 2022-10-18 19:18 | ED Dyspnea ---
General Chief Complaint: Respiratory Problems Stated Complaint: CHEST PAIN; SOB; COUGH Source of Information: Patient History of Present Illness Date Seen by Provider: Oct 18, 2022 Time Seen by Provider: 19:04 Initial Comments 72-year-old male presenting with complaints of increasing shortness of breath throughout the day. He had recently been seen on October 07 for shortness of breath and diagnosed with bronchitis and placed on steroids and a Z-Servando. He states that he continued to have shortness of breath after finishing the 5-day course of Z-Servando. With his breathing being worse today and having done 2 breathing treatments at home without any significant improvement he had finally come to the emergency department to be evaluated. He was having chest tightness with his wheezing and shortness of breath. He does continue to smoke cigarettes. He does not use supplemental oxygen at home. He has history of COPD, CHF, coronary artery disease. He denies having fever or chills at home but has been coughing more than usual. He has not necessarily been able to bring anything up with his cough. He is also diabetic and has an insulin pump. Timing/Duration: Other (Worsening shortness of breath especially today but over the last 2 weeks.) Severity: Severe Activities at Onset: Activity Prior Episodes/Possible Cause: Frequent Episodes Modifying Factors: Worse With Activity, Worse With Coughing; Improves With Rest (Resting helps his breathing some but it does not completely resolve his symptoms.) Associated Symptoms: Anxiety, Chest Pain (Tightness in chest with wheezing and shortness of breath), Cough, Edema, Lightheadedness, Weakness, Wheezing Allergies and Home Medications Allergies Coded Allergies: codeine (Verified Allergy, Unknown, 07/09/21) iodine (Verified Allergy, Unknown, 07/01/19) Patient Home Medication List Home Medication List Reviewed: Yes Albuterol Sulfate (Ventolin Hfa) 1 Puff Puff, 2 PUFF IH Q6H PRN for WHEEZING, (Reported) Entered as Reported by: MONICA CORTEZ on 10/04/19 1051 Atorvastatin Calcium (Atorvastatin Calcium) 80 Mg Tablet, 80 MG PO HS, (Reported) Entered as Reported by: LYNDA REESE on 07/01/19 2565 Azithromycin (Azithromycin) 250 Mg Tablet, 250 MG PO UD Prescribed by: SANDER LANGFORD on 10/08/22 0049 Cholecalciferol (Vitamin D3) (Vitamin D3) 125 Mcg Tablet, 125 MCG PO WEEK, (Reported) Entered as Reported by: MONICA CORTEZ on 07/09/21 0904 Citalopram Hydrobromide (Citalopram HBr) 20 Mg Tablet, 20 MG PO DAILY, (Reported) Entered as Reported by: LYNDA REESE on 07/01/192254 Clopidogrel Bisulfate (Clopidogrel) 75 Mg Tablet, 75 MG PO DAILY, (Reported) Entered as Reported by: MONICA CORTEZ on 07/09/21 0856 Doxycycline Hyclate (Doxycycline Hyclate) 100 Mg Tablet, 100 MG PO BID Prescribed by: CANDACE MALONEY on 07/24/22 1317 Fluticasone Propionate (Flonase Allergy Relief) 9.9 Ml [place].susp, 1 SPRAY NSEACH DAILY, (Reported) Entered as Reported by: MONICA CORTEZ on 10/04/19 1051 Furosemide (Lasix) 40 Mg Tablet, 40 MG PO DAILY Prescribed by: CANDACE MALONEY on 07/24/22 131 Insulin Aspart (Novolog) 300 Units/3 Ml Cartridge, 0-30 UNITS SQ AC, (Reported) Entered as Reported by: MONICA CORTEZ on 07/09/21 0856 Lisinopril (Lisinopril) 10 Mg Tablet, 10 MG PO DAILY, (Reported) Entered as Reported by: LYNDA REESE on 07/01/192254 Potassium Chloride (Potassium Chloride) 20 Meq Tab.er.prt, 20 MEQ PO DAILY Prescribed by: CANDACE MALONEY on 07/24/22 131 Prednisone (Prednisone) 20 Mg Tab, 40 MG PO DAILY Prescribed by: SANDER LANGFORD on 10/08/22 0049 Zolpidem Tartrate (Zolpidem Tartrate) 5 Mg Tablet, 5 MG PO HS, (Reported) Entered as Reported by: BRIAN COPELAND on 05/13/20 1116 Review of Systems Review of Systems Constitutional: No chills, No fever; malaise EENTM: No nose congestion Respiratory: cough, short of breath; No stridor; wheezing Cardiovascular: see HPI, edema Gastrointestinal: No abdominal pain, No nausea, No vomiting Genitourinary: No dysuria Musculoskeletal: no symptoms reported Skin: No rash Psychiatric/Neurological: Weakness Past Ngfjpow-Yqfivk-Kfxsuq Hx Patient Social History Tobacco Use?: Yes Tobacco type used: Cigarettes Smoking Status: Current Everyday Smoker Immunizations Up To Date First/Initial COVID19 Vaccinat: YES Second COVID19 Vaccination Martin: YES Third COVID19 Vaccination Date: YES Seasonal Allergies Seasonal Allergies: No Past Medical History Surgery/Hospitalization HX: VT/CAD, CABG Quad vessel 1999, CVA 2019, PVD, Bilateral Fem-pop, DM, Hyperlipidemia, CKD Stage 3 Surgeries: Yes (bilat fem-pop) Cardiac, CABG, Coronary Stent Respiratory: No Currently Using CPAP: No Currently Using BIPAP: No Cardiac: Yes (cabg) Coronary Artery Disease, Heart Attack, High Cholesterol, Hypertension Neurological: Yes TIA Genitourinary: Yes Renal Failure Gastrointestinal: Yes (hx of dysphageal stricture, ) Nieves's Esophagus Musculoskeletal: No Endocrine: Yes Diabetes, Insulin dep HEENT: No Cancer: No Psychosocial: No Integumentary: No Blood Disorders: No Family Medical History Cancer, CAD Over 55 Years Old, Diabetes, Hypertension Physical Exam Vital Signs Vital Signs - First Documented 10/18/22 10/18/22 19:02 19:47 Temp 37.0 Pulse 64 Resp 24 B/P (MAP) 185/48 (93) Pulse Ox 90 O2 Delivery Room Air O2 Flow Rate 2.00 Capillary Refill : Height, Weight, BMI Height: '" Weight: lbs. oz. kg; 24.00 BMI Method: General Appearance: Moderate Distress, Thin HEENT: PERRL/EOMI, Pharynx Normal, Moist Mucous Membranes Neck: Full Range of Motion, Normal Inspection, Non Tender, Supple Respiratory: Chest Non Tender, Accessory Muscle Use, Decreased Breath Sounds, Respiratory Distress; No Rhonci, No Stridor; Wheezing Cardiovascular: Normal Peripheral Pulses, Irregularly Irregular, Other (Trace to 1+ bilateral lower extremity edema) Gastrointestinal: Normal Bowel Sounds, No Pulsatile Mass, Non Tender, Soft Rectal: Deferred Extremity: Normal Capillary Refill, Non Tender, No Calf Tenderness, Pedal Edema (Trace to 1+ bilateral lower extremity edema) Neurologic/Psychiatric: Alert, Oriented x3, operating manager II-XII Norm as Tested Skin: Normal Color, Warm/Dry Focused Exam Lactate Level 10/18/22 19:13: Lactic Acid Level 1.42 Lactic Acid Level Laboratory Tests Test 10/18/22 19:13 Lactic Acid Level 1.42 MMOL/L (0.50-2.00) Progress/Results/Core Measures Results/Orders Lab Results Laboratory Tests Test 10/18/22 19:13 10/18/22 19:45 Range/Units White Blood Count 19.5 H 4.3-11.0 10^3/uL Red Blood Count 3.75 L 4.30-5.52 10^6/uL Hemoglobin 10.3 L 13.3-17.7 g/dL Hematocrit 32 L 40-54 % Mean Corpuscular Volume 86 80-99 fL Mean Corpuscular Hemoglobin 28 25-34 pg Mean Corpuscular Hemoglobin Concent 32 32-36 g/dL Red Cell Distribution Width 14.6 H 10.0-14.5 % Platelet Count 257 130-400 10^3/uL Mean Platelet Volume 9.8 9.0-12.2 fL Immature Granulocyte % (Auto) 0 % Neutrophils (%) (Auto) 74 42-75 % Lymphocytes (%) (Auto) 16 12-44 % Monocytes (%) (Auto) 8 0-12 % Eosinophils (%) (Auto) 1 0-10 % Basophils (%) (Auto) 0 0-10 % Neutrophils # (Auto) 14.4 H 1.8-7.8 10^3/uL Lymphocytes # (Auto) 3.1 1.0-4.0 10^3/uL Monocytes # (Auto) 1.6 H 0.0-1.0 10^3/uL Eosinophils # (Auto) 0.2 0.0-0.3 10^3/uL Basophils # (Auto) 0.0 0.0-0.1 10^3/uL Immature Granulocyte # (Auto) 0.1 0.0-0.1 10^3/uL Neutrophils % (Manual) 87 % Lymphocytes % (Manual) 10 % Monocytes % (Manual) 2 % Eosinophils % (Manual) 1 % Sodium Level 138 135-145 MMOL/L Potassium Level 4.8 3.6-5.0 MMOL/L Chloride Level 106 98-107 MMOL/L Carbon Dioxide Level 21 21-32 MMOL/L Anion Gap 11 5-14 MMOL/L Blood Urea Nitrogen 30 H 7-18 MG/DL Creatinine 2.08 H 0.60-1.30 MG/DL Estimat Glomerular Filtration Rate 33 BUN/Creatinine Ratio 14 Glucose Level 150 H 70-105 MG/DL Lactic Acid Level 1.42 0.50-2.00 MMOL/L Calcium Level 8.7 8.5-10.1 MG/DL Corrected Calcium 9.3 8.5-10.1 MG/DL Total Bilirubin 0.2 0.1-1.0 MG/DL Aspartate Amino Transf (AST/SGOT) 12 5-34 U/L Alanine Aminotransferase (ALT/SGPT) 15 0-55 U/L Alkaline Phosphatase 111 40-136 U/L Troponin I < 0.30 <0.30 NG/ML C-Reactive Protein 3.25 H <0.50 MG/DL Pro-B-Type Natriuretic Peptide 8070.0 H <125.0 PG/ML Total Protein 6.1 L 6.4-8.2 GM/DL Albumin 3.3 3.2-4.5 GM/DL Blood Gas Puncture Site RT.RADIAL Blood Gas Patient Temperature 37.1 Arterial Blood pH 7.43 7.37-7.43 Arterial Blood Partial Pressure CO2 34 L 35-45 MMHG Arterial Blood Partial Pressure O2 57 L 79-93 MMHG Arterial Blood HCO3 23 23-27 MMOL/L Arterial Blood Total CO2 23.6 21.0-31.0 MMOL/L Arterial Blood Oxygen Saturation 90 L 94-100 % Arterial Blood Base Excess -1.2 -2.5-2.5 MMOL/L Edwin Test OK Blood Gas Ventilator Setting NO Blood Gas Inspired Oxygen ROOM AIR My Orders Orders - JOE POWERS MD Cbc With Automated Diff (10/18/22 19:10) Comprehensive Metabolic Panel (10/18/22 19:10) Chest 1 View Ap/Pa Only (10/18/22 19:10) Albuterol/Ipra Inhalation Soln (Duoneb I (10/18/22 19:10) Ekg Tracing (10/18/22 19:10) O2 (10/18/22 19:10) Ed Iv/Invasive Line Start (10/18/22 19:10) Monitor-Rhythm Ecg Trace Only (10/18/22 19:10) Crp Fs (10/18/22 19:10) Svn Small Volume Nebulizer (10/18/22 19:10) Manual Differential (10/18/22 19:13) Blood Culture (10/18/22 19:40) Arterial Blood Gas (10/18/22 19:40) Lactic Acid Analyzer (10/18/22 19:40) Troponin I Fs (10/18/22 19:41) Probnp Fs (10/18/22 19:41) Sputum Culture (10/18/22 20:01) Furosemide Injection (Lasix Injection) (10/18/22 20:33) Cefepime Injection (Maxipime Injection) (10/18/22 20:33) Vancomycin Injection (Vancomycin Injecti (10/18/22 20:51) Vital Signs/I&O 10/18/22 10/18/22 10/18/22 10/19/22 19:02 19:19 19:47 01:30 Temp 37.0 36.9 Pulse 64 57 Resp 24 24 B/P (MAP) 185/48 (93) 149/46 Pulse Ox 90 90 88 97 O2 Delivery Room Air Room Air Nasal Cannula Nasal Cannula O2 Flow Rate 2.00 2.00 2.00 10/19/22 00:00 Intake Total 300 ml Balance 300 ml Progress Progress Note #1: Progress Note Potential diagnosis of COPD exacerbation, CHF exacerbation, pneumonia, bronchitis, pleural effusion, viral upper respiratory infection, hypoxia. Placed on cardiac telemetry monitoring and initially has monitor was showing atrial fibrillation with heart rate in the 60s to 70s. He was having oxygen saturation anywhere from 87 to 90% on room air. His respirations were 28-30. Obtain peripheral IV access and send labs for complete blood count, comprehensive metabolic profile, CRP. Obtain electrocardiogram to further evaluate his rate and rhythm chest x-ray to look for signs of infiltrate or effusion. Order a DuoNeb breathing treatment to try and help with his wheezing and shortness of breath. Consider arterial blood gas especially if he continues to have oxygen saturation of 87 to 90% on room air. Progress Note #2: Time: 19:40 Progress Note His electrocardiogram on my personal interpretation and review was showing a paced rhythm with heart rate of 61 bpm. He did not have ST elevation. His chest x-ray on my personal interpretation and review was showing worsening pulmonary vascular congestion and basilar pleural effusion bilaterally as well as right lower lobe infiltrate. He had improved his oxygen with the breathing treatment but then after finishing that he has O2 sat again dropped down to 87 to 88%. Placed on 3 L by nasal cannula which brought him up to 93 to 95%. Added on blood cultures with lactic acid and troponin as well as proBNP and arterial blood gas. Progress Note #3: Time: 20:30 Progress Note I reviewed the radiologist report on the 1 view chest x-ray. Read out as worsening congestive heart failure and pulmonary vascular congestion as well as pleural effusion and right lower lobe infiltrate which was new from his previous chest x-ray 10 days ago. He has elevated white blood cell count to 19.5 thousand with 87% neutrophils. This could also partly be from his recent s teroids that were prescribed 10 days ago. This could also be related to possible infection. His ABG showed a pH of 7.43, PCO2 of 34, PO2 of 57 with a 90% oxygen saturation on room air. His comprehensive metabolic profile showed normal sodium of 138 potassium of 4.8 he had chronic renal insufficiency with creatinine at baseline tonight at 2.08. He did have mild elevation of his glucose to 150. Lactic acid was normal at 1.42. He did have an elevated CRP to 3.25 where the cutoff is usually less than 0.3. His troponin I was less than 0.3 which was negative. He did have an elevated proBNP of 8070. This was up from his prior test 11 days ago that was just over 4000. Since he just had a Z- Servando and a steroid will order cefepime and consider vancomycin or additional antibiotics. When reviewing the results with the patient and spouse about the CHF as well as COPD and pneumonia I advised that he would need admission since he was having hypoxia as well. He was requiring supplemental oxygen to keep his oxygen saturation up. He declined admission to [facility] and requested to be admitted at [facility] in [place] as he states that that is where he sees his specialists. Progress Note #4: Time: 20:49 Progress Note I spoke with Dr. Garcia the on-call hospitalist for [facility]. I reviewed the patient's presentation and his complaint of increased shortness of breath and failed outpatient therapy with a Z-Servando. He also shows signs of worsening acute acute heart failure exacerbation with increased pulmonary vascular congestion and pleural effusion on the chest x-ray as well as right lower lobe infiltrate. He has a normal lactic acid at 1.42 and did not appear to be septic. However he does have an elevated proBNP of 8070 which was twice what he was 10 days ago. He was hypoxic on room air and his ABG showed pH of 7.43 with low PCO2 of 34 and low PO2 of 57 on room air. He did have chronic renal insufficiency and his creatinine tonight was at baseline at 2.08. I advised Dr. Garcia that I did already started cefepime since patient had a had a Zithromax as an outpatient with the last dose approximately 5 days ago. He had requested addition of vancomycin. Patient did have improvement after DuoNeb breathing treatment here in the emergency department but was requiring supplemental oxygen at 3 L/min to maintain his oxygen saturation above 89 to 90%. With the supplemental oxygen he is hovering between 93 to 95%. Dr. Garcia negative except with the admission for CHF exacerbation with pneumonia and hypoxia. We will add on the vancomycin 1 g IV in addition to the cefepime the patient has already received. Continue with the supplemental oxygen. There is a second patient that was transferred to [place] as well that had more time critical diagnosis so they were transported first but EMS for transport Mr. Cade after they return from the first transfer. Initial ECG Impression Date: Oct 18, 2022 Initial ECG Impression Time: 19:23 Initial ECG Rate: 61 Initial ECG Comparisson: Changed (07/23/2022 sinus rhythm) Comment On my personal interpretation and review his electrocardiogram tonight shows a paced rhythm with a rate of 61 bpm. QT interval 453 ms with a QTc interval 457 ms. He has no acute ST elevation. Compared to tracing from July 23, 2022 he did not have paced rhythm at that time and it showed a normal sinus rhythm with a short SD interval. Diagnostic Imaging Diagonstic Imaging: Xray Plain Films/CT/US/NM/MRI: chest Comments [facility]. [place], [place] NAME: JCARLOS CADE [facility] REC#: [id number] PT STATUS: REG ER : 1950 PHYSICIAN: JOE POWERS MD ADMIT DATE: 10/18/22/ER FS Signed Date of Exam:10/18/22 CHEST 1 VIEW AP/PA ONLY CLINICAL INDICATION: Patient with shortness of breath wheezing. EXAM: Portable chest x-ray upright view. COMPARISON: Chest x-ray dated 07/24/2022. FINDINGS: There is cardiomegaly with mild pulmonary vascular congestion. There are postop change to the chest consistent with CABG again seen. There is interval development of a small right pleural effusion and mild right midlung field right lung base infiltrate. There is no interval lung infiltrate involving the left lung region. There is no pneumothorax. There are degenerative spurs involving the thoracic spine. IMPRESSION: 1.: There is cardiomegaly with pulmonary vascular congestion which can be seen with congestive heart failure. 2: There is interval development of a small right pleural effusion and right lung base infiltrate. Dictated by: Dictated on workstation # [id number] Dict: 10/18/221921 Trans: 10/18/222108 [facility] [phone] Interpreted by: CASSI WILKERSON MD Electronically signed by: CASSI WILKERSON MD 10/18/222108 Reviewed: Reviewed by Me Critical Care Note Critical Care Total Time (minutes) 45 minutes Progress I spent at least 45 minutes of critical care time with the patient. Time excludes separately billable procedures. Time was spent obtaining history and information from patient and family, ordering tests and reviewing results, ordering interventions and reviewing response discussion with consultants, documentation in the chart. Patient was at risk of cardiorespiratory collapse with increased work of breathing with hypoxia. He required my immediate direct care and intervention to stabilize his care and arrange for transfer to a higher level of care. Departure Impression Primary Impression: Acute exacerbation of CHF (congestive heart failure) Qualified Codes: I50.9 - Heart failure, unspecified Additional Impressions: Pneumonia of right lower lobe due to infectious organism Hypoxia Disposition: XFER SHT-TRM HOSP Condition: Stable Transfer Transfer Reason: Patient preference Time Spoke to Accepting Phy: 20:49 Transfer Progress Notes I spoke with Dr. Garcia the on-call hospitalist for [facility]. I reviewed the patient's presentation and his complaint of increased shortness of breath and failed outpatient therapy with a Z-Servando. He also shows signs of worsening acute acute heart failure exacerbation with increased pulmonary vascular congestion and pleural effusion on the chest x-ray as well as right lower lobe infiltrate. He has a normal lactic acid at 1.42 and did not appear to be septic. However he does have an elevated proBNP of 8070 which was twice what he was 10 days ago. He was hypoxic on room air and his ABG showed pH of 7.43 with low PCO2 of 34 and low PO2 of 57 on room air. He did have chronic renal insufficiency and his creatinine tonight was at baseline at 2.08. I advised Dr. Garcia that I did already started cefepime since patient had a had a Zithromax as an outpatient with the last dose approximately 5 days ago. He had requested addition of vancomycin. Patient did have improvement after DuoNeb breathing treatment here in the emergency department but was requiring supplemental oxygen at 3 L/min to maintain his oxygen saturation above 89 to 90%. With the supplemental oxygen he is hovering between 93 to 95%. Dr. Garcia negative except with the admission for CHF exacerbation with pneumonia and hypoxia. We will add on the vancomycin 1 g IV in addition to the cefepime the patient has already received. Continue with the supplemental oxygen. There is a second patient that was transferred to [place] as well that had more time critical diagnosis so they were transported first but EMS for transport Mr. Cade after they return from the first transfer. Transfer Facility: [facility] in [place], [place] Method of Transfer: EMS ([facility] in [place]) Departure-Patient Inst. Referrals: RANDALL OMER APRN (PCP) Primary Care Physician [facility] (Family) Primary Care Physician JOE POWERS MD Oct 18, 2022 19:18
[2022-10-18 19:20] LABS: BASOPHILS % (AUTO) 0 % (0-10); EOSINOPHILS # (AUTO) 0.2 10^3/uL (0.0-0.3); EOSINOPHILS % (AUTO) 1 % (0-10); HEMATOCRIT 32 % (40-54); HEMOGLOBIN 10.3 g/dL (13.3-17.7); LYMPHOCYTES # (AUTO) 3.1 10^3/uL (1.0-4.0); LYMPHOCYTES % (AUTO) 16 % (12-44); MEAN CORPUSCULAR HEMOGLOBIN 28 pg (25-34); MEAN CORPUSCULAR HGB CONC 32 g/dL (32-36); MEAN CORPUSCULAR VOLUME 86 fL (80-99); MEAN PLATELET VOLUME 9.8 fL (9.0-12.2); MONOCYTES # (AUTO) 1.6 10^3/uL (0.0-1.0); MONOCYTES % (AUTO) 8 % (0-12); NEUTROPHILS # (AUTO) 14.4 10^3/uL (1.8-7.8); NEUTROPHILS % (AUTO) 74 % (42-75); PLATELET COUNT 257 10^3/uL (130-400); WHITE BLOOD COUNT 19.5 10^3/uL (4.3-11.0)
[2022-10-18 19:38] LABS: BILIRUBIN,TOTAL 0.2 MG/DL (0.1-1.0); CALCIUM 8.7 MG/DL (8.5-10.1); CREATININE SERUM 2.08 MG/DL (0.60-1.30); POTASSIUM 4.8 MMOL/L (3.6-5.0)
[2022-10-18 19:39] LABS: ALBUMIN 3.3 GM/DL (3.2-4.5); EOSINOPHILS % (MANUAL) 1 %; LYMPHOCYTES % (MANUAL) 10 %; MONOCYTES % (MANUAL) 2 %; NEUTROPHILS % (MANUAL) 87 %; TOTAL PROTEIN 6.1 GM/DL (6.4-8.2)
--- NOTE | 2022-10-18 19:53 | Diagnostic Imaging Report ---
CLINICAL INDICATION: Patient with shortness of breath wheezing. EXAM: Portable chest x-ray upright view. COMPARISON: Chest x-ray dated 07/24/2022. FINDINGS: There is cardiomegaly with mild pulmonary vascular congestion. There are postop change to the chest consistent with CABG again seen. There is interval development of a small right pleural effusion and mild right midlung field right lung base infiltrate. There is no interval lung infiltrate involving the left lung region. There is no pneumothorax. There are degenerative spurs involving the thoracic spine. IMPRESSION: 1.: There is cardiomegaly with pulmonary vascular congestion which can be seen with congestive heart failure. 2: There is interval development of a small right pleural effusion and right lung base infiltrate. Dictated by: Dictated on workstation # [id number]
[2022-10-18 20:28] LABS: ABG BASE EXCESS -1.2 MMOL/L (-2.5-2.5); ABG OXYGEN SATURATION 90 % (94-100); ABG PCO2 34 MMHG (35-45); ABG PH 7.43 (7.37-7.43); ABG PO2 57 MMHG (79-93); ABG TCO2 23.6 MMOL/L (21.0-31.0); ALLENS TEST OK; INSPIRED O2 ROOM AIR; VENTILATOR NO
[2022-10-18 20:29] LABS: PATIENT TEMP 37.1
[2022-10-18] MEDS ORDERED: FUROSEMIDE 40 MG/4 ML INJ (LASIX) IVP STA (20:33)
[2022-10-18] MEDS ORDERED: CEFEPIME INJECTION 1,000 MG in NS (IVPB) 50 ML IV STA (20:33)
[2022-10-18] MEDS ORDERED: VANCOMYCIN INJECTION 1,000 MG in NS (IVPB) 250 ML IV STA (20:51)
[2022-10-19 01:30] VITALS: BP 149/46
== END 2022-10-19 01:30 | disposition short-term general hospital (02) ==
LOC: EDUNIT# 19:00 → ER FS 19:02
DX: I13.0 Hypertensive heart and chronic kidney disease with heart failure and stage 1 through stage 4 chronic kidney disease, or unspecified chronic kidney disease (principal); E11.22 Type 2 diabetes mellitus with diabetic chronic kidney disease; N18.30 Chronic kidney disease, stage 3 unspecified; I50.9 Heart failure, unspecified; J18.9 Pneumonia, unspecified organism; F17.210 Nicotine dependence, cigarettes, uncomplicated; Z79.4 Long term (current) use of insulin; Z87.09 Personal history of other diseases of the respiratory system
CPT/HCPCS: 36415; 71045; 80053; 82805; 83605; 83880; 84484; 85007; 85027; 86141; 87040; 93005; 93041; 94640